=== PATIENT | female | born 1990 | race African-American/Black ===

== ENCOUNTER 2020-11-05 13:25 | Emergency (ER) | payer OTHER, SELFPAY ==
[2020-11-05 13:33] VITALS: BP 132/97; PULSE 114; RESP 20; TEMP 37.3; O2SAT 100
--- NOTE | 2020-11-05 13:46 | ED.GENADULT ---
HPI - General Adult General Chief complaint: Unspecified Stated complaint: headache, wants covid test Time Seen by Provider: 11/05/20 13:29 Source: patient and RN notes reviewed Mode of arrival: ambulatory Limitations: no limitations History of Present Illness HPI narrative: Patient is a 29-year-old female who presents with 2 days duration of upper respiratory symptoms noting congestion rhinorrhea nonproductive cough and inability to smell or taste patient was not vaccinated for COVID-19 presents in no distress has not taken anything for symptoms Related Data Allergies Allergy/AdvReac Type Severity Reaction Status Date / Time No Known Allergies Allergy Verified 11/05/20 13:35 Review of Systems Review of Systems: All systems reviewed & are unremarkable except as noted in HPI and below PMFSH Surgical History Surgical History (Updated 11/05/20 @ 13:48 by Manny Malcolm PA-C) H/O section Social History Social History (Updated 11/05/20 @ 13:48 by Manny Malcolm PA-C) Smoking status: Never smoker Gender identity (if verbalized by the patient): Female Exam Narrative: Exam Narrative: GENERAL: Well-appearing, well-nourished, and in no acute distress. HEAD: Normocephalic, atraumatic. EYES: PERRLA and EOMI. ENT: Nares clear, no rhinorrhea or epistaxis. Mucous membranes moist. CHEST: Clear to auscultation. No respiratory distress. No wheezes rales or rhonchi HEART: Regular rate and rhythm. No murmur heard. EXTREMITIES: Normal range of motion. No edema. SKIN: Warm, dry, no rash. NEURO: No focal deficits. Alert and oriented x3. PSYCH: Normal mood and affect. Course Course Emergency Course: Patient presented with symptoms consistent with possible Covid will be discharged home she is hemodynamically stable afebrile nontoxic-appearing and felt appropriate for outpatient reevaluation advised to follow with primary care and to obtain a pulse oximeter to watch her oxygenation while she waits for her COVID-19 results Vital Signs Vital signs: Vital Signs Temperature 99.1 F 11/05/20 13:33 Pulse Rate 114 H 11/05/20 13:33 Respiratory Rate 20 11/05/20 13:33 Blood Pressure 132/97 H 11/05/20 13:33 Pulse Oximetry 100 11/05/20 13:33 Temperature 99.1 F 11/05/20 13:33 Pulse Rate 114 H 11/05/20 13:33 Respiratory Rate 20 11/05/20 13:33 Blood Pressure 132/97 H 11/05/20 13:33 Pulse Oximetry 100 11/05/20 13:33 Medical Decision Making MDM Narrative Medical decision making narrative: Patient in the room in no distress aware of case findings treatment plan diagnosis hemodynamically stable agreeing to follow-up as instructed Vital Signs Vital Signs: Vital Signs Temperature 99.1 F 11/05/20 13:33 Pulse Rate 114 H 11/05/20 13:33 Respiratory Rate 20 11/05/20 13:33 Blood Pressure 132/97 H 11/05/20 13:33 Pulse Oximetry 100 11/05/20 13:33 Temperature 99.1 F 11/05/20 13:33 Pulse Rate 114 H 11/05/20 13:33 Respiratory Rate 20 11/05/20 13:33 Blood Pressure 132/97 H 11/05/20 13:33 Pulse Oximetry 100 11/05/20 13:33 Discharge Plan Discharge Clinical Impression: Acute upper respiratory infection Patient Disposition: Home, Self-Care Condition: Stable Instructions: Antibiotic Form, Upper Respiratory Infection (DC) Additional Instructions: Follow up with your primary care provider within 1-2 days for reevaluation and COVID-19 results. Go to ER for shortness of breath, difficulty breathing, chest pain, fever/chills, weakness, nauseau/vomitting, etc. or any other concerns. Stay well-hydrated Take any prescribed medications as directed. Follow patient education sheet If you do not have a drug allergy to tylenol or motrin and can tolerate it then take tylenol or motrin as needed for discomfort/pain. Prescriptions: New famotidine [Pepcid] 20 mg tablet 20 mg PO BID Qty: 14 RF: 0 ibuprofen [IBU] 600 mg tablet 600 mg PO QID PRN (Reason:
[2020-11-06 15:56] LABS: SARS-CoV-2 RNA PCR Positive
== END 2020-11-05 14:26 | disposition home or self-care (01) ==
LOC: ANHED 14:21
PROVIDERS: Emergency Medicine Emergency Medical Services; Emergency Provider Emergency Medicine; PCP Internal Medicine Infectious Disease
DX: U07.1 COVID-19 (principal)
CPT/HCPCS: 99283; C9803; U0003; U0005

== ENCOUNTER 2021-02-26 11:43 | Outpatient (CLI) | payer OTHER, SELFPAY ==
--- NOTE | ~2021-02-26 | MM_ITS ---
EXAMINATION: MM diagnostic manish BI w moshe HISTORY: Right subareolar breast lump one month ago, not currently palpated by patient TECHNIQUE: ML, MLO and craniocaudal 3-D tomosynthesis images of both breasts were performed and synth etic 2-D images were generated. CAD analysis was submitted and interpreted. COMPARISON: None BREAST PARENCHYMAL COMPOSITION: There are scattered areas of fibroglandular density. FINDINGS: No suspicious mass or architectural distortion, malignant calcification, skin thickening or retraction is detected. IMPRESSION: 1. No mammographic evidence of malignancy 2. Targeted subareolar ultrasound examination of the right breast at area of clinical complaint is re commended BI-RADS Category 0: Incomplete: Needs additional imaging evaluation. Reviewed, dictated and finalized at location A. IMPRESSION: 1. No mammographic evidence of malignancy 2. Targeted subareolar ultrasound examination of the right breast at area of cl inical complaint is recommended BI-RADS Category 0: Incomplete: Needs additional imaging evaluation.
== END 2021-02-26 11:44 | disposition home or self-care (01) ==
LOC: ANHIMG 11:45
PROVIDERS: PCP Obstetrics & Gynecology; Visit Provider Obstetrics & Gynecology
DX: Z12.31 Encounter for screening mammogram for malignant neoplasm of breast (principal); R92.8 Other abnormal and inconclusive findings on diagnostic imaging of breast
CPT/HCPCS: 77062; 77066; G0279

== ENCOUNTER 2021-04-10 18:03 | Emergency (ER) | payer OTHER, SELFPAY ==
[2021-04-10 18:23] VITALS: BP 144/98; PULSE 93; RESP 17; TEMP 36.2; O2SAT 100
--- NOTE | 2021-04-10 20:54 | ED.GENADULT ---
HPI - General Adult General Chief complaint: Unspecified Stated complaint: breast pain, breast d/c Time Seen by Provider: 04/10/21 20:31 Source: patient Mode of arrival: ambulatory Limitations: no limitations History of Present Illness HPI narrative: 30-year-old with no major medical problems here with a complaint of left breast pain associated with drainage. She stated the pain started yesterday and noticed some drainage coming out from her piercing. She also complains of bilateral ear pain. No history of fever or chills. Denies any nausea or vomiting. Onset (ago): day(s) (1) Location: chest (Left breast) Severity: mild Pain Consistency: constant Relieving factors: none Exacerbating factors: none Related Data Allergies Allergy/AdvReac Type Severity Reaction Status Date / Time No Known Allergies Allergy Verified 04/10/21 20:19 Review of Systems Review of Systems: All systems reviewed & are unremarkable except as noted in HPI and below Constitutional: Constitutional: Reports no additional constitutional complaints Eyes: Eyes: Reports no additional eye complaints ENT: Reports system reviewed and no additional complaints, except as documented Cardiovascular: Cardiovascular: Reports no additional cardiovascular complaints Respiratory: Respiratory: Reports no additional respiratory complaints Gastrointestinal: Gastrointestinal: Reports no additional gastrointestinal complaints Integumentary/Breasts: Skin/Breast: Reports as per HPI Neurologic: Reports system reviewed and no additional complaints, except as documented PMFSH Surgical History Surgical History H/O section Social History Social History Smoking status: Never smoker Gender identity (if verbalized by the patient): Female Exam Narrative: GENERAL: Well-appearing, well-nourished, and in no acute distress. HEAD: Normocephalic, atraumatic. EYES: PERRLA and EOMI.. NECK: Supple. CHEST: Clear to auscultation. No respiratory distress. HEART: Regular rate and rhythm. No murmur heard. Normal peripheral pulses. Breast left breast has a nipple piercing, drainage from the piercing. EXTREMITIES: Normal range of motion. No edema. SKIN: Warm, dry, no rash. NEURO: No focal deficits. Alert and oriented x3. PSYCH: Normal mood and affect. Course Course Emergency Course: Inform patient to demo her piercing take antibiotic as prescribed. Vital Signs Vital signs: Vital Signs Temperature 36.2 C L 04/10/21 18:23 Pulse Rate 93 04/10/21 18:23 Respiratory Rate 17 04/10/21 18:23 Blood Pressure 144/98 H 04/10/21 18:23 Pulse Oximetry 100 04/10/21 18:23 Temperature 36.2 C L 04/10/21 18:23 Pulse Rate 93 04/10/21 18:23 Respiratory Rate 17 04/10/21 18:23 Blood Pressure 144/98 H 04/10/21 18:23 Pulse Oximetry 100 04/10/21 18:23 Medical Decision Making Vital Signs Vital Signs: Vital Signs Temperature 36.2 C L 04/10/21 18:23 Pulse Rate 93 04/10/21 18:23 Respiratory Rate 17 04/10/21 18:23 Blood Pressure 144/98 H 04/10/21 18:23 Pulse Oximetry 100 04/10/21 18:23 Temperature 36.2 C L 04/10/21 18:23 Pulse Rate 93 04/10/21 18:23 Respiratory Rate 17 04/10/21 18:23 Blood Pressure 144/98 H 04/10/21 18:23 Pulse Oximetry 100 04/10/21 18:23 Discharge Plan Discharge Clinical Impression: Infected pierced nipple Patient Disposition: Home, Self-Care Condition: Stable Instructions: Antibiotic Form, Cellulitis (ED) Additional Instructions: take antibiotic as prescribed , remove your piercing Prescriptions: New amoxicillin-pot clavulanate [Augmentin] 875-125 mg tablet 1 tablet PO Q12H Qty: 20 RF: 0 ibuprofen 600 mg tablet 600 mg PO TID PRN (Reason: pain and fever) Qty: 30 RF: 0 No Action famotidine [Pepcid] 20 mg tablet 20 mg PO BID Qty: 14 RF: 0 ibupro
[2021-04-10 21:22] VITALS: BP 127/94; PULSE 86; RESP 18; TEMP 36.8; O2SAT 100
== END 2021-04-10 21:26 | disposition home or self-care (01) ==
PROVIDERS: Emergency Provider Family Medicine; PCP Obstetrics & Gynecology
DX: S21.042A Puncture wound with foreign body of left breast, initial encounter (principal); L08.9 Local infection of the skin and subcutaneous tissue, unspecified; W45.8XXA Other foreign body or object entering through skin, initial encounter; W26.8XXA Contact with other sharp object(s), not elsewhere classified, initial encounter
CPT/HCPCS: 99283

== ENCOUNTER → 2021-05-07 08:00 | Outpatient (CLI) | payer OTHER, SELFPAY ==
[2021-05-08 13:55] LABS: SARS-CoV-2 RNA PCR Positive
== END ==
PROVIDERS: PCP Obstetrics & Gynecology
DX: U07.1 COVID-19 (principal)
CPT/HCPCS: C9803; U0003; U0005

== ENCOUNTER 2021-05-08 13:04 | Outpatient (CLI) | payer OTHER, SELFPAY ==
--- NOTE | ~2021-05-08 | US_ITS ---
EXAMINATION: US breast RT limited HISTORY: Patient with history of palpable lump in the subareolar aspect of the right breast without m ammographic correlate TECHNIQUE: Limited subareolar right breast ultrasound was performed. FINDINGS: There is no evidence of focal abnormal cystic or solid mass in the vicinity of the reported subareolar right breast lump IMPRESSION: No specific sonographic correlate is identified for the reported palpable abnormality of concern. Fur ther evaluation at this time should be based on clinical assessment. Continued follow-up physical exa mination is recommended. BI-RADS Category 1: Negative Reviewed, dictated and finalized at location A. SETTER OVERLOCK IMPRESSION: No specific sonographic correlate is identified for the reported palpable abnor mality of concern. Further evaluation at this time should be based on clinical assessment. Continued follow-up physical examination is recommended. BI-RADS Category 1: Negative
== END 2021-05-08 13:05 | disposition home or self-care (01) ==
LOC: ANHIMG 13:10
PROVIDERS: Visit Provider Obstetrics & Gynecology
DX: R92.2 Inconclusive mammogram (principal)
CPT/HCPCS: 76642

== ENCOUNTER 2021-07-31 12:36 | Outpatient (CLI) | payer OTHER, SELFPAY ==
--- NOTE | ~2021-07-31 | US_ITS ---
EXAMINATION: US thyroid DATE: 07/31/2021 13:02 INDICATION: Nontoxic goiter, unspecified. TECHNIQUE: Multiple ultrasound images of the thyroid were obtained. COMPARISON: None. FINDINGS: The right thyroid lobe measures 5.4 x 1.6 x 1.2 cm. The left thyroid lobe measures 4.9 x 1.7 x 1.2 c m. There is normal echotexture and echogenicity throughout the thyroid gland. No discrete nodules id entified. Normal vascular flow is present. IMPRESSION: 1. Normal thyroid. Reviewed, dictated and finalized at location A. IMPRESSION: 1. Normal thyroid.
== END 2021-07-31 12:37 | disposition home or self-care (01) ==
LOC: ANHIMG 12:39
PROVIDERS: PCP Emergency Medicine; Visit Provider Emergency Medicine
DX: E04.9 Nontoxic goiter, unspecified (principal)
CPT/HCPCS: 76536

== ENCOUNTER 2021-08-29 12:46 | Outpatient (CLI) | payer OTHER, SELFPAY ==
--- NOTE | ~2021-08-29 | US_ITS ---
EXAMINATION: US pelvic complete DATE: 08/29/2021 13:40 INDICATION: Mass at the section scar. TECHNIQUE: Multiple transabdominal sonographic images of the pelvis were obtained. COMPARISON: None. FINDINGS: The uterus measures 8.3 x 5.1 x 5.7 cm. There is no free fluid in the pelvis. The endometrial complex measures 10 mm in thickness. The right ovary measures 2.9 x 1.6 x 1.5 cm. The left ovary measures 2. 4 x 2.1 x 1.6 cm. There is normal vascular flow in the ovaries. In the anterior abdominal wall at rig ht side of the section scar, there is a 2.8 x 2.5 x 3.3 cm hypoechoic mass. IMPRESSION: 1. 3.3 cm mass in the anterior abdominal wall at the right side of the section scar. The dif ferential diagnosis includes endometriosis, desmoid, and less likely malignancy. Ultrasound-guided co re needle biopsy is recommended. Reviewed, dictated and finalized at location A. IMPRESSION: 1. 3.3 cm mass in the anterior abdominal wall at the right side of the section scar. The differential diagnosis includes endometriosis, desmoid, and less likely malignancy. Ultrasound-guided core needle biopsy is recommended.
== END 2021-08-29 12:47 | disposition home or self-care (01) ==
LOC: ANHIMG 12:46
PROVIDERS: PCP Emergency Medicine; Visit Provider Emergency Medicine
DX: R19.00 Intra-abdominal and pelvic swelling, mass and lump, unspecified site (principal)
CPT/HCPCS: 76856

== ENCOUNTER 2021-11-01 12:19 | Outpatient (CLI) | payer OTHER, SELFPAY ==
[2021-11-01 14:49] LABS: Alanine Aminotransferase 6 U/L (6-35); Albumin Level 4.1 g/dL (3.5-5.1); Alkaline Phosphatase 74 U/L (38-126); Anion Gap 6 mmol/L (8-16); Aspartate Amino Transferase 29 U/L (14-36); Bilirubin,Total 0.2 mg/dL (0.2-1.3); Blood Urea Nitrogen 13 mg/dL (7-17); Calcium 8.8 mg/dL (8.4-10.2); Carbon Dioxide 28 mmol/L (22-30); Chloride 103 mmol/L (98-107); Estimated Glomerular Filt Rate > 60; Glucose 77 mg/dL (65-110); Potassium 4.1 mmol/L (3.4-5.0); Sodium 137 mmol/L (137-145)
[2021-11-04 14:16] LABS: Prolactin 6.9 ng/mL (***)
[2021-11-05 16:04] LABS: Vitamin D 1,25 (OH)2 Total 32 pg/mL (18-72); Vitamin D2 1,25 (OH)2 <8 pg/mL; Vitamin D3 1,25 (OH)2 32 pg/mL
== END 2021-11-01 12:20 | disposition home or self-care (01) ==
LOC: ANHWCLAB 12:24
PROVIDERS: PCP Emergency Medicine; Visit Provider Obstetrics & Gynecology
DX: E55.9 Vitamin D deficiency, unspecified (principal); N64.3 Galactorrhea not associated with childbirth; Z13.6 Encounter for screening for cardiovascular disorders
CPT/HCPCS: 36415; 80053; 82652; 84146

== ENCOUNTER 2021-12-10 12:19 | Outpatient (CLI) | payer OTHER, SELFPAY ==
--- NOTE | ~2021-12-10 | US_ITS ---
EXAMINATION: US biopsy st pelvis DATE: 12/10/2021 13:24 INDICATION: Intra-abdominal and pelvic swelling, mass, lump. TECHNIQUE: The procedure including the risks, benefits, and alternatives was discussed with the patie nt. Risks discussed included bleeding and infection. The patient understood the risks and agreed to p roceed. The skin overlying the right pelvis was prepped and draped in usual sterile fashion. Anesthe tic was administered with 1% lidocaine subcutaneously. An 18 gauge core biopsy needle was then used to obtain 3 core biopsy specimens under continuous sonographic guidance. The entry site was cleaned a nd dressed. There were no immediate complications. FINDINGS: Ultrasound images demonstrate the needle in a 4.0 x 3.1 x 2.9 cm hypoechoic subcutaneous ma ss in right pelvis. IMPRESSION: 1. Ultrasound-guided core needle biopsy of a subcutaneous mass in right pelvis at the right side of t he section scar. Reviewed, dictated and finalized at location A. IMPRESSION: 1. Ultrasound-guided core needle biopsy of a subcutaneous mass in right pelvis at the right side of the section scar.
== END 2021-12-10 12:20 | disposition home or self-care (01) ==
PROVIDERS: PCP Emergency Medicine; Visit Provider Obstetrics & Gynecology
DX: R19.00 Intra-abdominal and pelvic swelling, mass and lump, unspecified site (principal); N80.9 Endometriosis, unspecified
CPT/HCPCS: 20206; 76942; 88305

== ENCOUNTER 2022-03-21 16:41 | Outpatient (CLI) | payer OTHER, SELFPAY ==
--- NOTE | ~2022-03-21 | XR_ITS ---
EXAMINATION:XR_[id number]_CR DATE: 03/21/2022 17:03 INDICATION: Neck pain TECHNIQUE: AP, lateral, and odontoid views of the cervical spine are provided. COMPARISON: None FINDINGS: There is straightening of the cervical spine which can be positional or due to muscular spa sm. Alignment is normal. The odontoid is intact. No fracture is identified. Vertebral body heights an d disk spaces are normal. Prevertebral soft tissues are normal. IMPRESSION: 1. No acute osseous abnormality. Reviewed, dictated and finalized at location F. INE PECAN GATHERER
== END 2022-03-21 16:42 | disposition home or self-care (01) ==
LOC: ANHIMG 16:44
PROVIDERS: PCP Emergency Medicine; Visit Provider Emergency Medicine
DX: M54.2 Cervicalgia (principal)
CPT/HCPCS: 72040

== ENCOUNTER 2022-03-25 17:03 | Outpatient (CLI) | payer OTHER, SELFPAY ==
[2022-03-25 20:08] LABS: Influenza A QL RT-PCR Negative (Negative); Influenza B QL RT-PCR Negative (Negative)
== END 2022-03-25 17:04 | disposition home or self-care (01) ==
LOC: ANHLAB 17:05
PROVIDERS: PCP Emergency Medicine; Visit Provider Emergency Medicine
DX: R68.89 Other general symptoms and signs (principal); Z20.822 Contact with and (suspected) exposure to COVID-19
CPT/HCPCS: 87502

== ENCOUNTER 2022-07-05 15:46 | Outpatient (CLI) | payer OTHER, SELFPAY ==
--- NOTE | ~2022-07-05 | XR_ITS ---
EXAMINATION: XR chest 2V DATE: 07/05/2022 16:06 INDICATION: Left-sided chest pain TECHNIQUE: PA and lateral views of the chest are obtained. COMPARISON: 09/27/2020 FINDINGS: The lungs are free of acute opacities. No pleural effusion or pneumothorax. The cardiomedia stinal silhouette is normal. The visualized bones and soft tissues are unremarkable. IMPRESSION: 1. No acute cardiopulmonary abnormality. Reviewed, dictated and finalized at location F. OROLOGY FACULTY MEMBER
--- NOTE | 2022-07-05 16:08 | ECG_ITS ---
Measurements Intervals [place] Rate: 100 P: 53 MO: 159 QRS: 29 QRSD: 68 T: 40 QT: 328 QTc: 424 Interpretive Statements SINUS TACHYCARDIA BORDERLINE ECG NO PREVIOUS ECG AVAILABLE FOR COMPARISON Electronically Signed On 07-05-2022 17:01:12 SR VICE PRESIDENT by Angel Jenkins D.O.
== END 2022-07-05 15:47 | disposition home or self-care (01) ==
LOC: ANHIMG 15:50
PROVIDERS: PCP Emergency Medicine; Visit Provider Emergency Medicine
DX: R00.0 Tachycardia, unspecified (principal); Z13.6 Encounter for screening for cardiovascular disorders; R07.9 Chest pain, unspecified
CPT/HCPCS: 71046; 93005

== ENCOUNTER 2022-11-12 16:35 | Emergency (ER) | payer SELFPAY ==
[2022-11-12 16:48] VITALS: BP 154/99; PULSE 87; RESP 16; TEMP 36.4; O2SAT 100
--- NOTE | 2022-11-12 17:18 | ED.FEMALEGU ---
HPI - Female Genitourinary General Chief complaint: BUSINESS BANKER <Shira Neri PA-C - Last Filed: 11/13/22 00:11> Stated complaint: vaginal discharge <RASHAWN Panda Last Filed: 11/13/22 00:11> Time Seen by Provider: 11/12/22 16:55 <RASHAWN Panda Last Filed: 11/13/22 00:11> Source: patient <RASHAWN Panda Last Filed: 11/13/22 00:11> Mode of arrival: ambulatory <RASHAWN Panda Last Filed: 11/13/22 00:11> Limitations: no limitations <RASHAWN Panda Last Filed: 11/13/22 00:11> History of Present Illness HPI Narrative: Patient is a 31-year-old female who presents to the ED with report of abnormal vaginal discharge and odor. Patient reports having a foul fishy odor to her discharge, which she describes as a thin brown discharge for the last 3 weeks. She has been talking with her COVER MAKER and has tried several different [id number] therapies without relief. Patient otherwise asymptomatic. Denies lower abdominal pain, nausea, vomiting, fevers, dysuria, hematuria, abnormal vaginal bleeding. Patient is currently sexually active, but does not believe she has ever been exposed to STDs. <RASHAWN Panda Last Filed: 11/13/22 00:11> Related Data Allergies/Adverse reactions: Allergies Allergy/AdvReac Type Severity Reaction Status Date / Time No Known Allergies Allergy Verified 11/18/22 16:17 <RASHAWN Panda Last Filed: 11/13/22 00:11> Review of Systems Review of Systems: CONSTITUTIONAL: Denies fever, chills, or sweats. CARDIOVASCULAR: Denies chest pain. RESPIRATORY: Denies dyspnea. GASTROINTESTINAL: Denies abdominal pain, nausea, vomiting, or diarrhea. GENITOURINARY: See HPI. SKIN: Denies rash or itching. MUSCULOSKELETAL: Denies back pain, joint pain, or myalgia. <Shira Neri PA-C - Last Filed: 11/13/22 00:11> All systems reviewed & are unremarkable except as noted in HPI and below <Shira Neri PA-C - Last Filed: 11/13/22 00:11> [facility] Past Medical History Medical History: Medical History Prediabetes Thyroid enlargement <Shira Neri PA-C - Last Filed: 11/13/22 00:11> Surgical History Surgical History: Surgical History H/O section (~02/04/10) H/O oral surgery <RASHAWN Panda Last Filed: 11/13/22 00:11> Family History Family History: Family History Father No problems noted. Mother No problems noted. Other Alcoholism Heart disease Hypertension <RASHAWN Panda Last Filed: 11/13/22 00:11> Social History Social History: Social History (System 11/18/22 @ 16:17 by Desmond Roy) Smoking status: Never smoker Alcohol intake: never Substance use: never Lack of Transportation: No Lack of Food: Never True Current Housing: I Have Housing Concerned About Future Housing: No Difficulty Paying Gas/Electric Bills: No Difficulty Paying for Meds: No Currently Unemployed: No Education: Associate Degree Difficulty w/ Childcare or Family Care: No Gender identity (if verbalized by the patient): Female <RASHAWN Panda Last Filed: 11/13/22 00:11> Exam Narrative: GENERAL: Well appearing, obese with BMI of 33.1, non-toxic, in no acute distress. HEAD: Normocephalic, atraumatic. NECK: Supple. No adenopathy, no masses. RESPIRATORY: Airway patent, respirations nonlabored. Clear to auscultation bilaterally, no rales, rhonchi, wheezing. CARDIOVASCULAR: Regular rate and rhythm without murmurs, rubs, or gallops. Peripheral pulses 2+ and equal bilaterally. ABDOMINAL: Soft, no significant tenderness throughout lower abdomen, nondistended, no hepatosplenomegaly. Normoactive BS. PELVIC: Nor
[2022-11-12 18:19] LABS: Appearance Urine Cloudy (Clear); Bacteria Urine 3+ /hpf; Bilirubin Urine Negative (Negative); Blood Urine 2+ (Negative); Color Urine Yellow (Yellow); Glucose Urine UA Negative (Negative); Ketones Urine Negative (Negative); Leukocyte Esterase Ur 1+ LEU/UL (Negative); Nitrate Urine Negative (Negative); Non Pathogenic Casts 0-2; Protein Urine 3+ mg/dL (Negative); Specific Grav Ur 1.023 (1.001-1.035); Squamous Epithelial Cell Urine Moderate /hpf (Few); WBC Urine 51-100 /hpf
[2022-11-12 18:26] LABS: Add Urine Microscopic? YES
[2022-11-12] MEDS: metroNIDAZOLE 250 MG TABLET 500 MG PO (18:50)
[2022-11-12] MEDS: CEPHALEXIN 500 MG CAPSULE PO (18:50)
== END 2022-11-12 19:41 | disposition home or self-care (01) ==
PROVIDERS: Emergency Provider Physician Assistant; PCP Emergency Medicine
DX: N39.0 Urinary tract infection, site not specified (principal); N76.0 Acute vaginitis
CPT/HCPCS: 81001; 81025; 87070; 87086; 87491; 87591; 87808; 99284; A9270

== ENCOUNTER 2023-06-19 07:55 | Emergency (ER) | payer OTHER, SELFPAY ==
--- NOTE | ~2023-06-19 | CT_ITS ---
EXAMINATION: CT abdomen pelvis w con DATE: 06/19/2023 10:16 INDICATION: Right lower quadrant abdominal pain. TECHNIQUE: Computed tomography (CT) of the abdomen and pelvis was performed with 100 mL Omnipaque 350 intravenous contrast. Automated exposure control and iterative reconstruction technique were employe d. The dose-length product was 689.72 mGy-cm. COMPARISON: Ultrasound 12/10/2021, 08/29/2021 FINDINGS: The visualized portions of the lung bases demonstrate minimal atelectasis. No pleural effus ion. The heart size is normal. No pericardial effusion. There is a left posterior diaphragmatic herni a containing fat and a small portion of the stomach. The liver is normal. The gallbladder is distende d. The spleen, pancreas, adrenal glands, and kidneys are normal. There are no dilated loops of bowel. The appendix is normal. There is a subcutaneous mass in right lower quadrant measuring 6.0 x 5.0 x 4 .8 cm with adjacent fat stranding. There are no pathologically enlarged lymph nodes. There is no free intraperitoneal fluid. There is mild thoracic spondylosis. IMPRESSION: 1. 6.0 cm subcutaneous mass in right lower quadrant, increased from 3.3 cm on 08/29/2021. Biopsy on 12/10/2021 demonstrated endometriosis in the section scar. 2. Gallbladder distention, which may be secondary to fasting. Correlate with physical exam to exclude acute cholecystitis. Reviewed, dictated and finalized at location A. OGRAPHIC MACHINE OPERATOR IMPRESSION: 1. 6.0 cm subcutaneous mass in right lower quadrant, increased from 3.3 cm on . Biopsy on 12/10/2021 demonstrated endometriosis in the section scar. 2. Gallbladder distention, which may be secondary to fasting. Correlate with ph ysical exam to exclude acute cholecystitis.
[2023-06-19 08:08] VITALS: BP 145/107; PULSE 96; RESP 14; TEMP 36.4; O2SAT 100
[2023-06-19 08:34] LABS: Basophils Percent Auto 0.3 % (0.2-1.2); Eosinophils Absolute Auto 0.1 K/mm3 (0-0.3); Eosinophils Percent Auto 1.3 % (0-4.4); Hematocrit 35.8 % (37.0-47.0); Hemoglobin 11.2 g/dL (12.0-15.0); Immature Granulocyte Absolute 0.03 K/mm3 (0.00-0.031); Immature Granulocyte Percent A 0.4 % (0-0.5); Lymphocytes Absolute Auto 1.86 K/mm3 (0.9-3.2); Mean Corpuscular HGB Conc 31.3 g/dl (32-36); Mean Corpuscular Hemoglobin 28.2 pg (26-34); Mean Corpuscular Volume 90.2 fl (80-100); Mean Platelet Volume 10.3 fl (7.4-10.4); Monocytes Absolute Auto 0.4 K/mm3 (0.1-0.6); Neutrophils Absolute Auto 5.4 K/mm3 (1.3-6.7); Platelet Count Result 329 k/mm3 (150-375); Red Blood Count 3.97 M/mm3 (4.2-5.4); Red Cell Distribution Width 14.3 % (11.5-14.5); White Blood Count 7.8 K/mm3 (4.5-10.0)
[2023-06-19 08:42] VITALS: BP 140/97; PULSE 82; PULSE 84; RESP 17; O2SAT 100
[2023-06-19 08:51] LABS: Alanine Aminotransferase 6 U/L (6-35); Albumin Level 3.9 g/dL (3.5-5.1); Alkaline Phosphatase 79 U/L (38-126); Anion Gap 5 mmol/L (8-16); Aspartate Amino Transferase 22 U/L (14-36); Bilirubin,Total 0.5 mg/dL (0.2-1.3); Blood Urea Nitrogen 8 mg/dL (7-17); Calcium 9.1 mg/dL (8.4-10.2); Carbon Dioxide 25 mmol/L (22-30); Chloride 108 mmol/L (98-107); Estimated CRCL calculation 86 ml/min; Estimated Glomerular Filt Rate > 60; Glucose 95 mg/dL (65-110); Lipase 36 U/L (23-300); Potassium 4.4 mmol/L (3.4-5.0); Sodium 138 mmol/L (137-145)
[2023-06-19 08:56] LABS: Bacteria Urine None Seen /hpf; Non Pathogenic Casts 0-2; RBC Urine >100 /hpf (0-2); Squamous Epithelial Cell Urine Occasional /hpf (Few); WBC Urine 21-50 /hpf
--- NOTE | 2023-06-19 08:57 | ED.ABDPAIN ---
HPI - Abdominal Pain General Chief Complaint: Abdominal Pain <Jonathan James APRN - Last Filed: 06/19/23 11:32> Stated Complaint: Pelvic pain <Jonathan James APRN - Last Filed: 06/19/23 11:32> Time Seen by Provider: 06/19/23 08:55 <Jonathan James APRN - Last Filed: 06/19/23 11:32> Source: patient <Jonathan James APRN - Last Filed: 06/19/23 11:32> Mode of arrival: ambulatory <Jonathan James APRN - Last Filed: 06/19/23 11:32> Limitations: no limitations <Jonathan James APRN - Last Filed: 06/19/23 11:32> History of Present Illness HPI narrative: Sara is a 32-year-old female patient presenting to the ER today with complaints of right lower abdomen wall pain that began around 2:00 a.m. this morning. Patient reports that she has taken to Tylenol as an apply heating pad to help alleviate pain. She denies any fever. She is currently on her menses-started on June 17 2023. Rates pain 7/10. History of endometriosis. Denies any nausea, vomiting, diarrhea, or urinary symptoms. Last bowel movement was yesterday and normal for the patient. <Jonathan James APRN - Last Filed: 06/19/23 11:32> Related Data Allergies/Adverse Reactions: Allergies Allergy/AdvReac Type Severity Reaction Status Date / Time No Known Allergies Allergy Verified 06/19/23 08:13 <Jonathan James APRN - Last Filed: 06/19/23 11:32> Review of Systems Review of Systems: Pertinent positives per HPI. Patient denies any fever, chills, rash, headache, visual changes, dizziness, cough, runny nose, sore throat, shortness of breath, chest pain, palpitations, nausea, vomiting, diarrhea, constipation,or any urinary issues. <Jonathan James APRN - Last Filed: 06/19/23 11:32> [facility] Past Medical History Medical History: Medical History Prediabetes Thyroid enlargement <Jonathan James APRN - Last Filed: 06/19/23 11:32> Surgical History Surgical History: Surgical History H/O section (~02/04/10) H/O oral surgery <Jonathan James APRN - Last Filed: 06/19/23 11:32> Family History Family History: Family History Father No problems noted. Mother No problems noted. Other Alcoholism Heart disease Hypertension <Jonathan James APRN - Last Filed: 06/19/23 11:32> Social History Social History: Social History Smoking status: Never smoker Alcohol intake: never Substance use: never Lack of Transportation: No Lack of Food: Never True Current Housing: I Have Housing Concerned About Future Housing: No Difficulty Paying Gas/Electric Bills: No Difficulty Paying for Meds: No Currently Unemployed: No Education: Associate Degree Difficulty w/ Childcare or Family Care: No Gender identity (if verbalized by the patient): Female <Jonathan James APRN - Last Filed: 06/19/23 11:32> Comments At the time of my signature, I reviewed and agree with the nursing past medical, surgical, social, and family history. There is no relevant family history pertinent to the patient complaint. <Jonathan James APRN - Last Filed: 06/19/23 11:32> Exam Narrative: General: Well-developed, well nourished, in no apparent distress. Head: Normocephalic, atraumatic. Cardio: Regular rate and rhythm, s1 and s2 normal, no murmur appreciated. Resp: Clear to auscultation bilaterally, no rhonchi, rales, wheezing or rubs. Abdomen: Soft, pliable, bowel sounds present in all quadrants, tender to palpation over the right lower quadrant, erythema, redness, and swelling noted to the abdominal wall of the right lower quadrant, no organomegly, no CVAT tenderness. <Jonathan James,
[2023-06-19 08:59] LABS: Appearance Urine Turbid (Clear); Bilirubin Urine 1+ (Negative); Blood Urine 3+ (Negative); Color Urine Red (Yellow); Glucose Urine UA Negative (Negative); Ketones Urine Negative (Negative); Leukocyte Esterase Ur 1+ LEU/UL (Negative); Nitrate Urine Negative (Negative); Protein Urine 2+ mg/dL (Negative); Specific Grav Ur 1.018 (1.001-1.035)
[2023-06-19 09:01] LABS: Add Urine Microscopic? YES
[2023-06-19 10:51] VITALS: BP 142/99; PULSE 95; RESP 19; O2SAT 100
[2023-06-19 11:22] LABS: Lactic Acid Reflex 1.3 mmol/L (0.7-2.0)
== END 2023-06-19 11:11 | disposition home or self-care (01) ==
PROVIDERS: Student in an Organized Health Care Education/Training Program; Emergency Provider Nurse Practitioner Family; PCP Emergency Medicine
DX: L03.311 Cellulitis of abdominal wall (principal); R19.03 Right lower quadrant abdominal swelling, mass and lump; N80.9 Endometriosis, unspecified; R73.03 Prediabetes; E04.9 Nontoxic goiter, unspecified
CPT/HCPCS: 36415; 74177; 80053; 81001; 81025; 83605; 83690; 85025; 87040; 87086; 99284; Q9967

== ENCOUNTER 2023-07-10 00:31 | Day surgery (SDC) | payer OTHER, SELFPAY ==
--- NOTE | 2023-07-01 13:40 | PC.NURSE ---
Report to the Outpatient Waiting Room, entrance under the green pavilion located off [facility], at time __1130__ on date 07/10/23 . Planned Procedure Time: _1330 . Time changes happen often and if your time is changed the preop area will call you the afternoon before. - You and your visitor will be asked to self-screen and do not enter if you have any COVID symptoms. - A mask is optional within the hospital at this time. Patients may have clear liquids (water, carbonated beverages, clear teas, apple juice) until 3 hours prior to surgery with a maximum of 20 ounces. Take the following medications with a SIP of water the morning of surgery: ____NONE DO NOT STOP ANY OF YOUR OTHER PRESCRIPTION MEDICATIONS PRIOR TO SURGERY ?EXCEPT THE FOLLOWING Medications to discontinue per physician NONE Date to take last dose___NONE Please no make-up, nail [place] islander, hairspray, perfume, deodorant, or body powder the day of surgery. No jewelry (including any body piercings) or valuables the day of surgery, leave them at home. Please take a shower or bath the night before, or the morning of, surgery with an antibacterial soap. Wear comfortable, loose fitting clothing. - Jewelry must be removed prior to entering the operating room. Rings and piercings that are not removed may be cut off. - The hospital will not accept responsibility for valuables. - Please leave all valuables, including medications, at home the day of surgery. If you are going home after surgery, a licensed driver medic must drive you home. - NO public transportation without another adult if you receive anesthesia. - We recommend that an adult stay with you for 24 hours following discharge. - We also recommend that you do not drive, make important decision, drink alcoholic beverages, or take any drugs that were not prescribed by your health care provider for at least 24 hours after your discharge time. Follow any additional instructions given to you from your surgeon. If you or anyone in your household have experienced Covid symptoms in the past week, please notify your surgeon or the nurse liaison at the phone number below for possible testing. Telephone instructions given to __BARRIE and asked if any additional questions and then verbalized understanding. Patient advised to call surgeon office or pre surgery nurse liaison [phone] if any additional questions.
--- NOTE | 2023-07-09 12:04 | WPDANESEPPF ---
Anes - Initial Pre Proc Eval Procedure: Operation Date: 07/10/23 13:30 Proposed Procedures p Excision Endometrioma Right Lower Quadrant - John Fowler MD Date/Time: 07/09/23 12:04 Surgeon: John Fowler MD Pre Op Diagnosis: Endometrioma Rt Lower Quadrant Patient Data Age: 32 Gender: F Height: 1.57 m Weight: 87.5 kg Allergies Allergy/AdvReac Type Severity Reaction Status Date / Time No Known Allergies Allergy Verified 06/30/23 14:48 Home Medications Medication Instructions Recorded Confirmed Type No Home Medications 06/26/23 07/02/23 History Results Review: All pre-operative results and documents have been reviewed as part of the pre-operative evaluation. [facility] Past Medical History Medical History Prediabetes Thyroid enlargement Surgical History Surgical History H/O section (~02/04/10) H/O oral surgery Family History Family History Father No problems noted. Mother No problems noted. Other Alcoholism Heart disease Hypertension Social History Social History Smoking status: Never smoker Alcohol intake: current Substance use: never Substance use type: does not use Lack of Transportation: No Lack of Food: Never True Current Housing: I Have Housing Concerned About Future Housing: No Difficulty Paying Gas/Electric Bills: No Difficulty Paying for Meds: No Currently Unemployed: No Education: Associate Degree Difficulty w/ Childcare or Family Care: No Living arrangements: alone Gender identity (if verbalized by the patient): Female Spiritual care concerns: No Anes - Eval Final PreProcedure Day of Procedure 07/09/23 12:04 Patient weight: obese Heart: regular rate and rhythm Lungs: clear to auscultation Airway: Mallampati scale class II Neurological: alert and oriented Last oral intake: >/= 8 hours ASA classification: II Emergent: no Anesthetic plan: proceed Anesthesia type and monitoring: general ETT and standard monitoring Results Review: All pre-operative results and documents have been reviewed as part of the pre-operative evaluation. Informed Consent: The patient's anesthetic plan and its attendant risks and benefits were discussed with the patient/family/POA. Questions were solicited and answers provided to the satisfaction of the patient/family/POA.
[2023-07-10] VITALS (9 sets, daily range): BP systolic 104–144; BP diastolic 67–88; PULSE 70–99; RESP 15–24; TEMP 36.7–36.8; O2SAT 97–100
[2023-07-10] MEDS: LACTATED RINGERS 1,000 ML 30 ML IV CONT (11:30)
--- NOTE | 2023-07-10 11:39 | WPDHPUPDATE1 ---
History and Physical Update Update Date/Time: 07/10/23 11:39 History and Physical has been reviewed, including an updated exam of the patient. There are NO changes in the patient's condition. Risks, benefits, and alternatives have been discussed and questions answered. Patient agrees to proceed with procedure.
--- NOTE | 2023-07-10 11:55 | WPDANESEPPF ---
Anes - Initial Pre Proc Eval Procedure: Operation Date: 07/10/23 13:30 Proposed Procedures p Excision Endometrioma Right Lower Quadrant - John Fowler MD Date/Time: 07/10/23 11:55 Surgeon: John Fowler MD Pre Op Diagnosis: Endometrioma Rt Lower Quadrant Patient Data Age: 32 Gender: F Height: 1.57 m Weight: 87.5 kg Allergies Allergy/AdvReac Type Severity Reaction Status Date / Time No Known Allergies Allergy Verified 06/30/23 14:48 Home Medications Medication Instructions Recorded Confirmed Type No Home Medications 06/26/23 07/02/23 History Patient hx anesthesia problems: post op nausea/vomiting Family hx anesthesia problems: none Results Review: All pre-operative results and documents have been reviewed as part of the pre-operative evaluation. [facility] Past Medical History Medical History Prediabetes Thyroid enlargement Surgical History Surgical History H/O section (~02/04/10) H/O oral surgery Family History Family History Father No problems noted. Mother No problems noted. Other Alcoholism Heart disease Hypertension Social History Social History Smoking status: Never smoker Alcohol intake: current Substance use: never Substance use type: does not use Lack of Transportation: No Lack of Food: Never True Current Housing: I Have Housing Concerned About Future Housing: No Difficulty Paying Gas/Electric Bills: No Difficulty Paying for Meds: No Currently Unemployed: No Education: Associate Degree Difficulty w/ Childcare or Family Care: No Living arrangements: alone Gender identity (if verbalized by the patient): Female Spiritual care concerns: No Anes - Eval Final PreProcedure Day of Procedure 07/10/23 11:55 Patient weight: normal Heart: regular rate and rhythm Lungs: clear to auscultation Airway: Mallampati scale class II Neurological: alert and oriented Last oral intake: >/= 8 hours ASA classification: II Emergent: no Anesthetic plan: proceed Anesthesia type and monitoring: general LMA and standard monitoring Results Review: All pre-operative results and documents have been reviewed as part of the pre-operative evaluation. Informed Consent: The patient's anesthetic plan and its attendant risks and benefits were discussed with the patient/family/POA. Questions were solicited and answers provided to the satisfaction of the patient/family/POA.
[2023-07-10] MEDS: SCOPOLAMINE 1 MG PATCH 1 PATCH TRANSDERM (11:57)
--- NOTE | 2023-07-10 14:17 | WPDHPUPDATE1 ---
History and Physical Update Update Date/Time: 07/10/23 14:17 History and Physical has been reviewed, including an updated exam of the patient. There are NO changes in the patient's condition. Risks, benefits, and alternatives have been discussed and questions answered. Patient agrees to proceed with procedure.
[2023-07-10] MEDS: ceFAZolin 2 GM/D5W 50 ML 2 GM/50 ML BAG IVPB (14:26)
[2023-07-10] MEDS: BUPIVACAINE/EPINEPHRINE 0.5% 30 ML VIAL INFILTRATE (14:57)
--- NOTE | 2023-07-10 15:55 | W.PM.PROC2 ---
Procedure Note - Detailed Date of Procedure 07/10/23 Pre-op Diagnosis Endometrioma Rt Lower Quadrant Post-op Diagnosis Same Procedure Performed Excision 6 cm intramuscular endometrioma Surgeon John Fowler MD Resp Ther Veronica Santiago FRONT OFFICE DIRECTOR Anesthesia General and Local (0.5% Marcaine with epinephrine) Indications Patient is a 32-year-old woman who had a Caesarean section about 10 years ago. She has developed a mass in the right lower quadrant which is very painful during her menses. This was 3.3 cm in August of 2021. Biopsy in December of [address] scan June 19, 2023 showed that the mass had increased to 6 cm. It is very symptomatic. She is taken to surgery now for excision of right lower quadrant endometrioma. Findings The mass measured 6 cm by 5.5 cm x 4.5 cm. It was attached to the anterior rectus fascia which had to be removed to completely excise the mass. Description of Procedure Patient was taken to surgery and induced into general anesthesia. The proposed incision was marked on the skin and was long the lines of her previous section scar. The mass was easily palpable and the proposed incision was directly over the mass. Local anesthetic was infiltrated over the area of the anticipated incision and in the subcutaneous around the mass. Incision was made and dissection was carried through the skin. The skin and superficial subcutaneous was carefully dissected off of the mass. The mass was very firm but well circumscribed consistent with an endometrioma. We then continued dissecting all around the mass taking care not to enter it. We continued our dissection going circumferentially around the mass and progressively deeper into the wound. Eventually we came to the attachments to the anterior rectus fascia. With elevation, I was able to excise the mass but had to remove a 3 x 2.5 area of anterior rectus fascia. The mass was then measured with findings as above. I infiltrated additional local in to the areas of the anterior rectus fascia and around the area where it had been excised. We then closed the anterior rectus fascia with bidirectional running 0 Vicryl suture. I then placed 2 pieces of Xaracoll directly over the anterior fascial closure. We then closed Timo's fascia over this with interrupted 3-0 Vicryl suture. The last piece of Xaracoll was then placed in the subcutaneous. The skin was loosely approximated with 4-0 Vicryl subcuticular skin suture. Finally the skin was closed with a running 4-0 Monocryl skin suture. The wound was dressed with Exofin surgical adhesive. Patient was awakened and taken to recovery in good condition. Sponge needle counts were correct x2. Estimated Blood Loss -5 Drains No Packing No Pathology Yes (Right lower quadrant intramuscular mass, 6 cm) Complications No immediate complications Condition Stable Disposition PACU [facility] Billing Surgery - Charge Forward: Surgery Billing (Excision 6 cm intramuscular right lower quadrant soft tissue mass, no margin)
[2023-07-10] MEDS: ONDANSETRON INJ 4 MG/2 ML VIAL IV PUSH (17:16)
== END 2023-07-10 18:10 | disposition home or self-care (01) ==
PROVIDERS: PCP Emergency Medicine; Visit Provider Surgery
PROC: (CPT 22901; principal; 2023-07-10 13:30)
DX: N80.C11 Endometriosis of the anterior abdominal wall, fascia and muscular layers (principal)
CPT/HCPCS: 22901; 88304; A9270; J0690; J1100; J2250; J2405; J2704; J3010; J7120

== ENCOUNTER 2023-11-29 08:35 | Outpatient (CLI) | payer OTHER, SELFPAY ==
[2023-11-29 09:09] LABS: Alanine Aminotransferase 12 U/L (6-35); Albumin Level 4.3 g/dL (3.5-5.1); Alkaline Phosphatase 77 U/L (38-126); Anion Gap 8 mmol/L (4-12); Aspartate Amino Transferase 27 U/L (14-36); Bilirubin,Total 0.5 mg/dL (0.2-1.3); Blood Urea Nitrogen 13 mg/dL (7-17); Carbon Dioxide 27 mmol/L (22-30); Chloride 102 mmol/L (98-107); Estimated Glomerular Filt Rate > 60; Glucose 87 mg/dL (65-110); Potassium 4.2 mmol/L (3.4-5.0); Sodium 137 mmol/L (137-145)
[2023-11-29 09:40] LABS: Vitamin D 25 Hydroxy 24.3 ng/mL
[2023-11-29 09:49] LABS: HIV 1/2 Ab P24 Ag Result Negative (Negative)
[2023-11-29 09:54] LABS: Hepatitis B Surface Antigen Negative (Negative)
[2023-11-29 10:11] LABS: Hepatitis C Virus Antibody Negative (Negative)
[2023-11-29 11:12] LABS: Hemoglobin A1C 5.8 % (<5.7)
[2023-11-29 11:13] LABS: Rapid Plasma Reagin Non-Reactive (NonReactive)
== END 2023-11-29 08:36 | disposition home or self-care (01) ==
PROVIDERS: PCP Emergency Medicine; Visit Provider Nurse Practitioner Family
DX: E55.9 Vitamin D deficiency, unspecified (principal); R73.9 Hyperglycemia, unspecified; Z11.3 Encounter for screening for infections with a predominantly sexual mode of transmission
CPT/HCPCS: 36415; 80053; 82306; 83036; 86592; 86703; 86803; 87340; G0432

== ENCOUNTER 2023-12-27 08:42 | Emergency (ER) | payer OTHER, SELFPAY ==
--- NOTE | ~2023-12-27 | XR_ITS ---
EXAMINATION: XR chest 2V DATE: 12/27/2023 10:12 INDICATION: Cough and chills. Upper respiratory infection. TECHNIQUE: Frontal and lateral views of the chest were obtained. COMPARISON: Chest 2 view 07/05/2022, CT abdomen and pelvis 06/19/2023 FINDINGS: There is no pneumonia, pleural effusion, or pneumothorax. The heart size is normal. IMPRESSION: 1. No acute cardiopulmonary disease. Reviewed, dictated and finalized at location A.
[2023-12-27 10:50] LABS: Strep Group A RT-PCR NOT DETECTED (Negative)
--- NOTE | 2023-12-27 10:56 | ED.URI ---
HPI - URI/Sore Throat General Chief Complaint: Upper Respiratory Infection Stated Complaint: flu like s/s Time Seen by Provider: 12/27/23 09:33 History of Present Illness HPI Narrative: 33-year-old female presenting with viral symptoms. For the last couple of days she has had nasal congestion, sore throat, cough, body aches. No chest pain or shortness of breath. No abdominal pain, nausea vomiting, diarrhea. No leg swelling. Related Data Home Medications Medication Instructions Recorded Confirmed bxyjkoedylzu-iyxulrrq-cecd tablet PO 12/10/23 12/10/23 fumarate 18 mg-folic acid 400 mcg tablet (One-A-Day Women's Complete) Allergies Allergy/AdvReac Type Severity Reaction Status Date / Time metronidazole AdvReac Intermediate Nausea Verified 12/19/23 15:54 oxycodone AdvReac Intermediate Nausea Verified 12/19/23 15:54 Review of Systems Review of Systems: All systems reviewed & are unremarkable except as noted in HPI and below PMFSH Past Medical History Medical History Endometrioma (~06/2023) Prediabetes Vitamin D deficiency Surgical History Surgical History H/O section (~02/04/10) History of vaginal delivery 04/2009, 08/2015 History of wisdom tooth extraction (~08/2020) Hx of excision of mass (~07/2023) Excision 6 cm intramuscular endometrioma 07/10/23 Family History Family History Father No problems noted. Mother Alcoholism Hypertension Heart disease Thyroid disease Grandparent Hypertension Cerebrovascular accident Lung cancer Social History Social History Smoking status: Never smoker Alcohol intake: current Alcohol use details: socially Substance use: never Substance use type: does not use Do You Feel Safe in your Home?: Yes Lack of Transportation: No Lack of Food: Never True Current Housing: I Have Housing Concerned About Future Housing: No Difficulty Paying Gas/Electric Bills: No Difficulty Paying for Meds: No Currently Unemployed: No Education: Associate Degree Difficulty w/ Childcare or Family Care: No Living arrangements: alone Gender identity (if verbalized by the patient): Female Spiritual care concerns: No Exam Narrative: GENERAL: Nontoxic, no acute distress HEAD: Normocephalic, atraumatic. EYES: PERRLA and EOMI. ENT: No pharyngeal erythema, edema, or exudates; mucous membranes are moist NECK: Supple. CHEST: Clear to auscultation. No respiratory distress. HEART: Regular rate and rhythm. ABDOMEN: Soft, nontender, nondistended EXTREMITIES: Normal range of motion. SKIN: Warm, dry, no rash. NEURO: Alert and oriented x3. PSYCH: Normal mood and affect. Course Vital Signs Vital signs: Vital Signs Temperature 97.6 F 12/27/23 11:02 Pulse Rate 115 H 12/27/23 11:02 Respiratory Rate 16 12/27/23 11:02 Blood Pressure 147/109 H 12/27/23 11:02 Pulse Oximetry 100 12/27/23 11:02 Temperature 97.6 F 12/27/23 11:02 Pulse Rate 115 H 12/27/23 11:02 Respiratory Rate 16 12/27/23 11:02 Blood Pressure 147/109 H 12/27/23 11:02 Pulse Oximetry 100 12/27/23 11:17 Oxygen Delivery Room Air 12/27/23 11:17 MDM - URI/Sore Throat MDM Narrative Medical decision making narrative: 33-year-old female presenting with viral infection symptoms. Patient is a bit tachycardic, otherwise vitals are within normal limits. Patient is positive for COVID-19. Chest x-ray is unremarkable. On re-evaluation, patient is resting comfortably. She is safe for outpatient management. Tylenol ibuprofen for body aches and fevers. Advised PCP follow-up. Appropriate return precautions given. Discharged in stable condition. Differential Diagnosis Differential diagnosis: Likely upper respi
[2023-12-27 11:02] VITALS: BP 147/109; PULSE 115; RESP 16; TEMP 36.4; O2SAT 100
--- NOTE | 2023-12-27 11:14 | PC.NURSE ---
Bedside report given to BEREKET Nunez.
[2023-12-27 11:17] VITALS: O2SAT 100
[2023-12-27 11:31] LABS: Influenza A QL RT-PCR Negative (Negative); Influenza B QL RT-PCR Negative (Negative); RSV RNA, RT-PCR Negative (Negative); SARS-CoV-2 RNA PCR Positive (Negative)
[2023-12-27] MEDS: IBUPROFEN 600 MG TABLET PO (12:15)
[2023-12-27] MEDS: ACETAMINOPHEN 500 MG TABLET 1000 MG PO (12:15)
[2023-12-27 12:55] VITALS: TEMP 37.2
== END 2023-12-27 12:56 | disposition home or self-care (01) ==
PROVIDERS: Emergency Provider Emergency Medicine; PCP Family Medicine
DX: U07.1 COVID-19 (principal); R73.03 Prediabetes; E55.9 Vitamin D deficiency, unspecified
CPT/HCPCS: 71046; 87637; 87651; 99283; A9270

== ENCOUNTER 2024-06-25 16:36 | Outpatient (CLI) | payer OTHER, SELFPAY ==
--- OUTSIDE RECORDS SUMMARY | 2024-06-25 16:38 | XMS_ITS | Clinical Summary ---
Author Organization [facility] Address [address] [place] [address] Care Team Providers Care Futures Trader Name Role Phone Unavailable Primary Care Provider Unavailabl e Source Comments [facility],non-owned Affiliates and Associated Physician Practices is amultiple site organization consisting of ambulatory clinics and hospital sitesin [place], [place], [place] and [place]. This disclosure is being madepursuant to the Care Everywhere program and may not contain all information available regarding this patient. Last updated 18.[facility] Allergies No known active allergies Medications * Be aware that medications may not be up to date on this document. Alwaysverify current medications with the patient. Medication Sig Dispensed Refills Start Date End Date Status Rye-Agv-DL-Fish Oil ([facility] PO) Take 2 Tabs by mouth Active ferrous sulfate 325 (65 FE) MG tablet Take 1 Tab by mouth 2 times daily 60 Tab 5 06/28/2015 Active docusate sodium (COLACE) 100 MG capsule Take 1 Cap by mouth once daily 30 Cap 5 07/26/2015 Active ibuprofen (MOTRIN) 600 MG tablet Take 1 Tab by mouth every 6 hours as needed for Pain 60 Tab 0 08/18/2015 Active docusate sodium (COLACE) 100 MG capsule Take 1 Cap by mouth 2 times daily 30 Cap 1 08/18/2015 Active Active Problems Patient Care Coordination No te Formatting of this note migh t be different from the original. 4/1/16 + GBBS 08/03/15 Per [facility]- unable to presently locate op report from prior delivery due to change in services. Will continue to search. Pt [facility] her [place] [facility] @ [phone] Problem Noted Date Diagnosed Date Vaginal after delivery 08/16/2015 GBS (group B Streptococcus c arrier), +RV culture, currently 08/04/2015 GDM (gestational diabetes mellitus) 06/28/2015 Amniotic disorder in third trimester 06/14/2015 Overview (08/03/2016): IMO Update 08/03/2016 Obesity 03/15/2015 Overview (03/15/2015): Body mass index is 33.83 kg/(m^2). H/O section 03/15/2015 Overview (07/03/2015): G2 for breech and complete Request to [facility] revealed no records in storage as of H/O Pre-Eclampsia? 03/15/2015 Overview (03/15/2015): G1- IOL at 36 weeks for HTN Supervision of high-risk 03/14/2015 Overview (08/04/2015): PNL: A+/I/-/-, NR H/H/Plt: 11.4/36.4/267 Urine Cx: neg GC/CT: neg/neg HgbE: neg Pap: wnl CF: neg UDS: neg Quad screen low risk GBS pos H/O delivery, currently 015 Overview (03/15/2015): G1: IOL at 36 weeks for HTN, G2: CS at 28wk for PTL and breech, demise, vaginal bleeding Encounter for repeat ultraso und for low lying placenta, antepartum Encounter for routine screen ing for malformation using ultrasonics Gestational diabetes mellitus Gestational diabetes mellitus (GDM) state Gestational diabetes mellitus, delivered Resolved Problems Problem Noted Date Diagnosed Date Resolved Date Screening, , for ma lformation by ultrasound 03/22/2015 03/22/2015 Obesity affecting in second trimester 03/22/2015 03/22/2015 Placenta previa without hemo rrhage, antepartum 03/22/2015 08/16/2015 Overview (03/22/2015): Posterior placenta previa Immunizations Name Administration Dates Next Due Rho D Immune Globulin 06/14/2015 TDAP (7yrs+) 06/14/2015 Social History Tobacco Use Types Packs/Day Years Used Date Smoking Tobacco: Never Smokeless Tobacco: Never Alcohol Use Standard Drinks/Week Comments No 0 (1 standard drink = 0.6 oz pur e alcohol) Sex and Gender Information Value Date Recorded Sex Assigned at Female 09/12/2021 10:45 PM CDT Gender Identity Female 09/12/2021 10:45 PM CDT Sexual Orientation Straight 09/12/2021 10 :45 PM CDT Last Filed Vital Signs Vital Sign Reading Time Taken Comments Blood Pressure 124/86 09/27/2015 10:15 AM CDT Pulse 98 09/27/2015 10:15 AM CDT Temperature 36.6 C (97.9 F) 08/18/2015 8:25 AM CDT Respiratory Rate 20 09/27/2015 10:15 AM CDT Oxygen Saturation 100% 08/18/2015 8:25 AM CDT Inhaled Oxygen Concentration - - Weight 81.2 kg (179 lb) 09/27/2015 10:15 AM CDT Height 157.5 cm (5' 2) 09/27/2015 10:15 AM CDT Body Mass Index 32.74 09/27/2015 10:15 AM CDT Plan of Treatment Health Maintenance Due Date Last Done Comments PAP SMEAR 1990 HIV SCREENING 2005 HEPATITIS C SCREENING 11/20/2008 HEPATITIS B VACCINE (1 of 3 - 19+ 3-dose series) 2009 COVID-19 VACCINE ( - 2023-2 5 season) 2024 INFLUENZA VACCINE (#1) 2024 7, 03/03/2015 DEPRESSION SCREENING 05/05/2024 DTAP/TDAP/TD VACCINES (2 - T d or Tdap) 06/14/2025 06/14/2015 ZOSTER VACCINE (1 of 2) 2040 HIB VACCINE Aged Out No longer eligi ble based on patient's age to complete this topic HPV VACCINE Aged Out No longer eligi ble based on patient's age to complete this topic MENINGOCOCCAL (Group B) VACCINE Aged Out No longer eligible b ased on patient's age to complete this topic MENINGOCOCCAL VACCINE Aged Out No sonja darline eligible based on patient's age to complete this topic PNEUMOCOCCAL VACCINE Aged Out No long er eligible based on patient's age to complete this topic Advance Directives * Full Code (Latest Code Status on File) Date Activated Date Inactivated Comments 08/16/2015 10:19 PM 08/18/2015 4:47 PM
--- OUTSIDE RECORDS SUMMARY | 2024-06-25 16:38 | XMS_ITS | Referral Summary ---
Author Organization [facility] [employer] Address [address] [place] [address] Care Team Providers Care Sewage Plant Operator Name Role Phone Unavailable Primary Care Provider Unavailabl e Source Comments [facility],non-owned Affiliates and Associated Physician Practices is amultiple site organization consisting of ambulatory clinics and hospital sitesin [place], [place], [place] and [place]. This disclosure is being madepursuant to the Care Everywhere program and may not contain all information available regarding this patient. Last updated 18.[facility] Allergies No known active allergies Medications * Be aware that medications may not be up to date on this document. Alwaysverify current medications with the patient. Medication Sig Dispensed Refills Start Date End Date Status Lbh-Slk-UV-Fish Oil ([facility] PO) Take 2 Tabs [...] Will continue to search. Pt [facility] her [place] [facility] @ [phone] Problem Noted Date Diagnosed Date Vaginal after [...] Mass Index 32.74 09/27/2015 10:15 AM CDT Functional Status Functional Status Response Date of Assess ment Is person deaf or have serious hearing difficult y? No 08/17/2015 Is person blind or have serious difficulty seein g? No 08/17/2015 Does person have serious dif ficulty walking/climbing stairs? No 08/17/2015 Does person have difficulty dressing/bathing? No 08/17/2015 Does person have difficulty doing errands alone? No 08/17/2015 Cognitive Status Response Date of Assessm ent Does person have difficulty concentrating/remembering/making decisions? No 08/17/2015 Plan of Treatment Not on file Advance Directives * Full Code (Latest Code Status on File) Date Activated Date Inactivated Comments 08/16/2015 10:19 PM 08/18/2015 4:47 PM
--- OUTSIDE RECORDS SUMMARY | 2024-06-25 16:39 | XMS_ITS | Clinical Summary ---
Author Organization [facility] Address [address] [place] [id number] Care Team Providers Care Honing Machine Set Up Operator Tool Name Role Phone Unavailable Primary Care Provider Unavailabl e Social History Tobacco Use Types Packs/Day Years Used Date Smoking Tobacco: Never Assessed Comments Unknown Sex and Gender Information Value Date Recorded Sex Assigned at Not on file Legal Sex Female 5:25 PM CDT Gender Identity Not on file Sexual Orientation Not on file Plan of Treatment Health Maintenance Due Date Last Done Comments Cervical Cancer Screening Pa p Smear (Age 30 to 64) Every 3 Years 1990 Annual Physical 1993 Hepatitis C 2008 DTaP, Tdap and Td Vaccines ( 1 - Tdap) 2009 Hepatitis B Vaccines (1 of 3 - 19+ 3-dose series) 2009 Cervical Cancer Screening Pa p with HPV Testing (Age 30 to 64) Every 5 Years 2020 Cervical Cancer Screening with HPV 2020 COVID-19 Vaccine (2023-2 5 season) 2024 Influenza Adult (#1) 2024 HPV Vaccines Aged Out No longer eligi ble based on patient's age to complete this topic Meningococcal B Vaccine Aged Out No l onger eligible based on patient's age to complete this topic Meningococcal Vaccine Aged Out No sonja darline eligible based on patient's age to complete this topic Pneumococcal Vaccine: Pediat rics (0 to 5 Years) and At-Risk Patients (6 to 64 Years) Aged Out No longer eligible b ased on patient's age to complete this topic RSV Immunizations Under 20 Months Aged Out No longer eligible based on patient's age to complete this topic
--- OUTSIDE RECORDS SUMMARY | 2024-06-25 16:39 | XMS_ITS | Data Portability ---
Author Organization [facility] Address [address] [place] [address] Assessment No assessment recorded. Plan of Treatment Reminders Order Date Submit Date Provider Last Modified By Organization Details Last Modified Time Details Appointments None record ed. Lab pap, IG + HPV, cervic al - please use Z11.51 in additi on to code above for HPV testin g. 2020 021 SOM [facility], [address], [place], [address], 16:11:48 CBC 2020 021 S[facility], [address], [place], [address], 1 08:22:10 TSH, ultra- sensit ld, serum 2020 021 [facility], [address], [place], [address], 08:22:12 CMP, serum or plasma 2020 021 [email or web address] [facility], [address], [place], [address], 2 09:43:45 HbA1c (hemog lobin A1c), blood 2020 021 [email or web address] [facility], [address], [place], [address], 1 12:33:18 lipid panel, serum 2020 [facility], [address], [place], [address], 08:22:10 hepati tis panel (A+B+C ), acute, serum 2020 [facility], [address] [place] [address], [address], [place], [address], 08:22:11 hepati tis B surfac e Ab, qualit ative, serum 2020 [facility], [address] [place] [address], [address], [place], [address], 08:22:13 HIV 1+2 AB + HIV 1 p24 Ag, qualit ative immuno assay, serum 2020 [facility], [address], [place], [address], 08:22:14 HSV 2 IgG Ab, QN, IA, serum 2020 [facility], [address] [place] [address], [address], [place], [address], 08:22:15 RPR (rapid plasma reagin ), serum 2020 [facility], [address] [place] [address], [address], [place], [address], 08:22:13 bacter ial vagino sis panel, vagina l 2020 [facility], [address] [place] [address], [address], [place], [address], 10/19/202 1 03:07:08 cultur e, vagina l/rect al, strept ococcu s group B 2020 021 [facility], [address] [place] [address], [address], [place], [address], 1 03:07:09 urinal ysis comple te, reflex cultur e 2020 021 [facility], [address], [place], [address], 1 09:20:42 CBC w/ auto diff 2020 021 [facility], [address], [place], [address], 1 06:11:12 CMP, serum or plasma 2020 021 [facility], [address], [place], [address], 1 06:11:12 lipid panel, serum 2020 021 [facility], [address], [place], [address], 1 06:11:14 urinal ysis, dipsti ck 2020 021 [facility], [address], [place], [address], 1 06:11:13 bacter ial vagino sis panel, vagina l 2020 021 [facility], [address] [place] [address], [address], [place], [address], 1 09:38:58 cultur e, vagina l/rect al, strept ococcu s group B 2020 021 [facility], [address] [place] [address], [address], [place], [address], 09:38:59 SARS CoV 2 RNA (COVID -19), QL, backside grinder-PC R, respir atory specim en - fatigu e, chest pain, body aches, . expose d to pos COVID person . wicho montgomery 2019@ 1200 2019 020 [facility] (Lab), [address] [place], [address], 0 11:06:14 Referral None record ed. Procedures None record ed. Surgeries None record ed. Imaging MAMMO, screen ing, bilate ral 2020 [facility] (Imaging), [address] [facility] [address], [address], 11:42:04 US, pelvis , comple te - Mass, right of midlin e above the Pfanne nstiel scar 2020 [facility] (One Call Scheduling), [address] [place], [address], 13:21:30 Medication Orders multiv itamin tablet 2020 [facility], [address] [place] [address], [address], 12:47:35 Calciu m with Vitami n D 600 mg-10 mcg (400 unit) tablet 2020 021 [facility], [address] [place] [address], [address], 12:47:37 acyclo vir 800 mg tablet 2020 021 [facility], [address] [place] [address], [address], 11:42:57 flucon azole 150 mg tablet 2020 [facility], [address] [place] [address], [address], 15:50:13 metron idazol e 0.75 % (37.5 mg/5 gram) vagina l gel 2020 [facility], [address] [place] [address], [address], 1 15:50:08 multiv itamin tablet 2020 [facility], [address] [place] [address], [address], 11:42:59 Calciu m with Vitami n D 600 mg-10 mcg (400 unit) tablet 2020 [place] [address], [address] [place] [address], [address], 11:42:45 Patient TargetsNo targets recorded. Patient Instructions Encounter Date Encounter Id Patient Instructions Last Modified By Organization Details Last Modified Time 01/04/2020 [id number] Reviewed the following recommendations: -Stay home and separate from others as much as possible. -Monitor your symptoms and seek medical attention for trouble breathing, persistent chest pain, confusion, or bluish lips or face. -Wear a mask if you must be around other people. -Wash your hands often for 20 seconds with soap and water and clean high-touch surfaces daily -You may discontinue home isolation if your symptoms are improving and it has been 10 days since symptoms started. [email or web address] Not available 01/04/2020 12:00:36 06/28/2020 [id number] genital herpes: care instructions mary Not available 06/28/2020 11:42:38 bacterial vaginosis: care instructions johnerman Not available 06/28/2020 11:42:38 08/25/2020 [id number] Labs US Follow up in 1 week oajao Not available 08/25/2020 16:16:24 09/06/2020 [id number] body mass index: care instructions oajao Not available 09/06/2020 11:57:48 learning about healthy weight oajao Not available 09/06/2020 11:57:48 Labs Low cholesterol diet Follow up with Dr Martinez Follow up in 6 months [email or web address] Not available 09/06/2020 12:11:50 02/12/2021 [id number] learning about breast cancer screening mwasserman Not available 02/12/2021 12:47:29 Reason for Referral None Reported. Results Created Date Observation Date Name Description Value Unit Range Abnormal Flag Note LastModifiedBy Organization Detail LastModifiedTime 01/05/2001/05/2020 SARS CoV 2 RNA (COVI D-19) , QL, backside grinder-P CR, respi rator y speci men sars - cov - 2 PCR NEGATI VE mL Not Available [facility] (Lab) [address] [place], [address], 01/07/2020 11:06:14 01/05/20 20 01/05/2020 SARS CoV 2 RNA (COVI D-19) , QL, backside grinder-P CR, respi rator y speci men covidcom1 COMME NTS: This assay is desig jace to detec t the RdRp and N genes of SARS- CoV-2 using nucle ic acid ampli ficat ion. A negat ld resul t does not precl ude the possi bilit y of 2019- nCoV infec tion since the adequ acy of sampl e colle ction and/o r low viral burde n may resul t in the prese nce of viral nucle ic acids level s below the elena tical sensi tivit y of this test metho d. Not Available [facility] (Lab) [address] [facility], [place], [address], 01/07/2020 11:06:14 01/05/20 20 01/05/2020 SARS CoV 2 RNA (COVI D-19) , QL, backside grinder-P CR, respi rator y speci men covidcom2 Posit ld resul ts are indic ative of the prese nce of SARS- CoV-2 RNA and do not rule out bacte rial infec tion or co-in fecti on with other virus es. Not Available [facility] (Lab) [address] [place], [address], 01/07/2020 11:06:14 01/05/20 20 01/05/2020 SARS CoV 2 RNA (COVI D-19) , QL, backside grinder-P CR, respi rator y speci men covidcom3 Test resul ts shoul d be used along with other clini bee obser vatio ns, patie nt histo ry, epide miolo gical infor matio n and labor at[facility] data [facility] the diagn osis. Not Available [facility] (Lab) [address] [place], [address], 01/07/2020 11:06:14 01/05/20 20 01/05/2020 SARS CoV 2 RNA (COVI D-19) , QL, backside grinder-P CR, respi rator y speci men covidcom4 This test has recei porfirio FDA Emerg ency Use Autho rizat ion and has been verif ied by [facility] . This test is only autho rized for the durat ion of the decla ratio n and the circu mstan ben that exist to justi fy the autho rizat ion of the emerg ency use of in vitro diagn ostic tests for the detec tion of SARS- CoV-2 virus and/o r diagn osis of COVID -19 infec tion under secti on 564 (b) (1) of the Act. 11 U.S.C . 360bb b-3 (b) (1), unles s the autho rizat ion is termi nated or revok ed soone r. Not Available [facility] (Lab) [address] [place], [address], 01/07/2020 11:06:14 01/05/20 20 01/05/2020 SARS CoV 2 RNA (COVI D-19) , QL, backside grinder-P CR, respi rator y speci men covidcom5 [facility] is certi fied under CLIA- 88 as quali fied to perfo rm high compl exity testi ng. This testi ng was perfo rmed in the [facility] [place] [place] [address] (CLIA Licen se #[id number] [id number], CAP #[id number], AU-ID #[id number]). Not Available [facility] (Lab) [address] [place], [address], 01/07/2020 11:06:14 01/05/20 20 01/05/2020 SARS CoV 2 RNA (COVI D-19) , QL, backside grinder-P CR, respi rator y speci men covidcom6 Facts heet for healt hcare provi ders: https ://ww w.fda .gov/ media /1362 56/do wnloa d Facts heet for patie nts: https ://[employer]fda .gov/ media /1362 57/do wnloa d Not Available [facility] (Lab) [address] [place], [address], 01/07/2020 11:06:14 06/28/19 21 07/01/2020 bacte rial vagin osis panel , vagin al hsv 1 DEANDRA Negati ve negati ve Not Available [facility] ([facility]) [address] [place], [address], 07/04/2020 09:38:58 06/28/19 21 07/01/2020 bacte rial vagin osis panel , vagin al hsv 2 DEANDRA Negati ve negati ve Not Available [facility] ([facility]) [address] [place], [address], 07/04/2020 09:38:58 06/28/19 21 07/03/2020 bacte rial vagin osis panel , vagin al atopobium vaginae Low - 0 score Not Available [facility] ([facility]) [address] [place], [address], 07/04/2020 09:38:58 06/28/19 21 07/03/2020 bacte rial vagin osis panel , vagin al bvab 2 Low - 0 score Not Available [facility] ([facility]) [address] [place], [address], 07/04/2020 09:38:58 06/28/19 21 07/03/2020 bacte rial vagin osis panel , vagin al megasphaera 1 Low - 0 score Calcu late total score by mari leizabeth the 3 indiv idual bacte rial vagin osis (BV) marke r score s toget her. Total score is inter prete d as follo ws: Total score 0-1: Indic ates the absen ce of BV. Total score 2: Indet ermin ate for BV. Addit ional clini bee data shoul d be evalu ated to estab malachi a diagn osis. Total score 3-6: Indic ates the prese nce of BV. This test was devel oped and its perfo rmanc e roxy cteri stics deter mined by [facility]. It has not been clear ed or appro porfirio by the Food and Drug Admin istra tion. Not Available [facility] ([facility]) [address] [place], [address], 07/04/2020 09:38:58 06/28/19 21 07/03/2020 bacte rial vagin osis panel , vagin al yas albicans, DEANDRA Negati ve negati ve Not Available [facility] ([facility]) [address] [place], [address], 07/04/2020 09:38:58 06/28/19 21 07/03/2020 bacte rial vagin osis panel , vagin al yas glabrata, DEANDRA Negati ve negati ve Not Available [facility] ([facility]) [address] [facility] [place], [address], 07/04/2020 09:38:58 06/28/19 21 07/04/2020 bacte rial vagin osis panel , vagin al trich vag by DEANDRA Negati ve negati ve Not Available [facility] ([facility]) [address] [place], [address], 07/04/2020 09:38:58 06/28/19 21 07/04/2020 bacte rial vagin osis panel , vagin al chlamydia trachomatis, DEANDRA Negati ve negati ve Not Available [facility] ([facility]) [address] [place], [address], 07/04/2020 09:38:58 06/28/19 21 07/04/2020 bacte rial vagin osis panel , vagin al neisseria gonorrhoeae, DEANDRA Negati ve negati ve Not Available [facility] ([facility]) [address] [place], [address], 07/04/2020 09:38:58 06/28/19 21 06/30/2020 cultu re, vagin al/re ctal, strep tococ cus group B strep gp B DEANDRA Positi ve negati ve abnormal Cente rs for Disea se Contr ol and Preve ntion (CDC) and Ameri can Congr ess of Obste trici ans and Gynec ologi sts (ACOG ) guide lines for preve ntion of perin atal group B strep tococ bee (GBS) disea se speci fy co-co llect ion of a vagin al and recta l swab speci men to maxim ize sensi tivit y of GBS detec tion. Per the CDC and ACOG, swabb ing both the lower vagin a and rectu m subst antia lly incre ases the yield of detec tion juventino red with sampl ing the vagin a alone . Penic illin G, ampic illin , or cefaz oralia are indic ated for intra partu m proph ylaxi s of perin atal GBS colon izati on. Refle x susce ptibi lity testi ng shoul d be perfo rmed prior to use of clind amyci n only on GBS isola diogo from penic illin -benedict rgic women who are consi dered a high risk for anaph ylaxi s. Treat ment with vanco mycin witho ut addit ional testi ng is warra nted if resis tance to clind amyci n is noted . Not Available [facility] ([facility]) [address] [facility], [place], [address], 07/04/2020 09:38:59 08/29/1908/29/2020 CBC w/ auto diff WBC 8.6 x10e3 /uL 3.4-10 .8 Not Available [facility] ([facility]) [address] [place], [address], 08/29/2020 06:11:11 08/29/1908/29/2020 CBC w/ auto diff RBC 4.00 x10e6 /uL 3.77-5 .28 Not Available [facility] ([facility]) [address] [place], [address], 08/29/2020 06:11:11 08/29/19 21 08/29/2020 CBC w/ auto diff hemoglobin 12.3 g/dL 11.1-1 5.9 Not Available [facility] ([facility]) [address] [place], [address], 08/29/2020 06:11:11 08/29/19 21 08/29/2020 CBC w/ auto diff hematocrit 37.7 % 34.0-4 6.6 Not Available [facility] ([facility]) [address] [place], [address], 08/29/2020 06:11:11 08/29/19 21 08/29/2020 CBC w/ auto diff MCV 94 fL 79-97 Not Available [facility] ([facility]) [address] [place], [address], 08/29/2020 06:11:11 08/29/19 21 08/29/2020 CBC w/ auto diff MCH 30.8 pg 26.6-3 3.0 Not Available [facility] ([facility]) [address] [facility], [place], [address], 08/29/2020 06:11:11 08/29/19 21 08/29/2020 CBC w/ auto diff MCHC 32.6 g/dL 31.5-3 5.7 Not Available [facility] ([facility]) [address] [facility], [place], [address], 08/29/2020 06:11:11 08/29/19 21 08/29/2020 CBC w/ auto diff RDW 13.0 % 11.7-1 5.4 Not Available [facility] ([facility]) [address] [facility], [place], [address], 08/29/2020 06:11:11 08/29/19 21 08/29/2020 CBC w/ auto diff platelets 322 x10e3 /uL 150-45 0 Not Available [facility] ([facility]) [address] [facility], [place], [address], 08/29/2020 06:11:11 08/29/19 21 08/29/2020 CBC w/ auto diff neutrophils 64 % not estab. Not Available [facility] ([facility]) [address] [facility], [place], [address], 08/29/2020 06:11:11 08/29/19 21 08/29/2020 CBC w/ auto diff lymphs 29 % not estab. Not Available [facility] ([facility]) [address] [facility], [place], [address], 08/29/2020 06:11:11 08/29/19 21 08/29/2020 CBC w/ auto diff monocytes 5 % not estab. Not Available [facility] ([facility]) [address] [facility], [place], [address], 08/29/2020 06:11:11 08/29/19 21 08/29/2020 CBC w/ auto diff eos 2 % not estab. Not Available [facility] ([facility]) [address] [place], [address], 08/29/2020 06:11:11 08/29/19 21 08/29/2020 CBC w/ auto diff basos 0 % not estab. Not Available [facility] ([facility]) [address] [place], [address], 08/29/2020 06:11:11 08/29/19 21 08/29/2020 CBC w/ auto diff immature cells SALESP[employer] FLOOR COVERINGS Not Available [facility] ([facility]) [address] [place], [address], 08/29/2020 06:11:11 08/29/1908/29/2020 CBC w/ auto diff neutrophils (absolute) 5.5 x10e3 /uL 1.4-7. 0 Not Available [facility] ([facility]) [address] [place], [address], 08/29/2020 06:11:11 08/29/19 21 08/29/2020 CBC w/ auto diff lymphs (absolute) 2.5 x10e3 /uL 0.7-3. 1 Not Available [facility] ([facility]) [address] [place], [address], 08/29/2020 06:11:11 08/29/1908/29/2020 CBC w/ auto diff monocytes(ab solute) 0.4 x10e3 /uL 0.1-0. 9 Not Available [facility] ([facility]) [address] [place], [address], 08/29/2020 06:11:11 08/29/19 21 08/29/2020 CBC w/ auto diff eos (absolute) 0.2 x10e3 /uL 0.0-0. 4 Not Available [facility] ([facility]) [address] [place], [address], 08/29/2020 06:11:11 08/29/19 21 08/29/2020 CBC w/ auto diff baso (absolute) 0.0 x10e3 /uL 0.0-0. 2 Not Available [facility] ([facility]) [address] [facility], [place], [address], 08/29/2020 06:11:11 08/29/1908/29/2020 CBC w/ auto diff immature granulocytes 0 % not estab. Not Available [facility] ([facility]) [address] [facility], [place], [address], 08/29/2020 06:11:11 08/29/19 21 08/29/2020 CBC w/ auto diff immature grans (abs) 0.0 x10e3 /uL 0.0-0. 1 Not Available [facility] ([facility]) [address] [place], [address], 08/29/2020 06:11:11 08/29/19 21 08/29/2020 CBC w/ auto diff NRBC [employer]LO[employer] COVERINGS Not Available [facility] ([facility]) [address] [place], [address], 08/29/2020 06:11:11 08/29/19 21 08/29/2020 CBC w/ auto diff hematology comments: [employer] COVERINGS Not Available [facility] ([facility]) [address] [place], [address], 08/29/2020 06:11:11 08/29/19 21 08/29/2020 CMP, serum or plasm a glucose 88 mg/dL 65-99 Not Available [facility] ([facility]) [address] [place], [address], 08/29/2020 06:11:12 08/29/19 21 08/29/2020 CMP, serum or plasm a BUN 13 mg/dL 6-20 Not Available [facility] ([facility]) [address] [facility], [place], [address], 08/29/2020 06:11:12 08/29/19 21 08/29/2020 CMP, serum or plasm a creatinine 0.88 mg/dL 0.57-1 .00 Not Available [facility] ([facility]) [address] [facility], [place], [address], 08/29/2020 06:11:12 08/29/19 21 08/29/2020 CMP, serum or plasm a eGFR if nonafricn AM 89 mL/mi n/1.7 3 >59 Not Available [facility] ([facility]) [address] [facility], [place], [address], 08/29/2020 06:11:12 08/29/19 21 08/29/2020 CMP, serum or plasm a eGFR if africn AM 103 mL/mi n/1.7 3 >59 Lab sonal curre ntly repor ts eGFR in compl iance with the curre nt recom menda tions of the Natio nal Kidne y Found ation . [facility] will updat e repor ting as new guide lines are publi shed from the NKF-A SN Task force . Not Available [facility] ([facility]) [address] [facility], [place], [address], 08/29/2020 06:11:12 08/29/19 21 08/29/2020 CMP, serum or plasm a BUN/creatini ne ratio 15 9-23 Not Available [facility] ([facility]) [address] [place], [address], 08/29/2020 06:11:12 08/29/19 21 08/29/2020 CMP, serum or plasm a sodium 141 mmol/ L 134-14 4 Not Available [facility] ([facility]) [address] [place], [address], 08/29/2020 06:11:12 08/29/1908/29/2020 CMP, serum or plasm a potassium 4.3 mmol/ L 3.5-5. 2 Not Available [facility] ([facility]) [address] [place], [address], 08/29/2020 06:11:12 08/29/1908/29/2020 CMP, serum or plasm a chloride 104 mmol/ L 96-106 Not Available [facility] ([facility]) [address] [place], [address], 08/29/2020 06:11:12 08/29/1908/29/2020 CMP, serum or plasm a carbon dioxide, total 25 mmol/ L 20-29 Not Available [facility] ([facility]) [address] [place], [address], 08/29/2020 06:11:12 08/29/1908/29/2020 CMP, serum or plasm a calcium 9.4 mg/dL 8.7-10 .2 Not Available [facility] ([facility]) [address] [place], [address], 08/29/2020 06:11:12 08/29/1908/29/2020 CMP, serum or plasm a protein, total 8.0 g/dL 6.0-8. 5 Not Available [facility] ([facility]) [address] [place], [address], 08/29/2020 06:11:12 08/29/1908/29/2020 CMP, serum or plasm a albumin 3.9 g/dL 3.9-5. 0 Not Available [facility] ([facility]) [address] [place], [address], 08/29/2020 06:11:12 08/29/19 21 08/29/2020 CMP, serum or plasm a globulin, total 4.1 g/dL 1.5-4. 5 Not Available [facility] ([facility]) [address] [place], [address], 08/29/2020 06:11:12 08/29/19 21 08/29/2020 CMP, serum or plasm a A/G ratio 1.0 1.2-2. 2 below low normal Not Available [facility] ([facility]) [address] [place], [address], 08/29/2020 06:11:12 08/29/1908/29/2020 CMP, serum or plasm a bilirubin, total 0.4 mg/dL 0.0-1. 2 Not Available [facility] ([facility]) [address] [place], [address], 08/29/2020 06:11:12 08/29/19 21 08/29/2020 CMP, serum or plasm a alkaline phosphatase 62 IU/L 39-117 Not Available [facility] ([facility]) [address] [place], [address], 08/29/2020 06:11:12 08/29/19 21 08/29/2020 CMP, serum or plasm a AST (SGOT) 12 IU/L 0-40 Not Available [facility] ([facility]) [address] [place], [address], 08/29/2020 06:11:12 08/29/19 21 08/29/2020 CMP, serum or plasm a ALT (SGPT) 4 IU/L 0-32 Not Available [facility] ([facility]) [address] [place], [address], 08/29/2020 06:11:12 08/29/19 21 08/29/2020 urina lysis , dipst ick specific gravity 1.025 1.005- 1.030 Not Available [facility] ([facility]) [address] [place], [address], 08/29/2020 06:11:13 08/29/1908/29/2020 urina lysis , dipst ick pH 6.0 5.0-7. 5 Not Available [facility] ([facility]) [address] [place], [address], 08/29/2020 06:11:13 08/29/1908/29/2020 urina lysis , dipst ick urine-color YELLOW yellow Not Available [facility] ([facility]) [address] [place], [address], 08/29/2020 06:11:13 08/29/1908/29/2020 urina lysis , dipst ick appearance CLEAR clear Not Available [facility] ([facility]) [address] [place], [address], 08/29/2020 06:11:13 08/29/1908/29/2020 urina lysis , dipst ick WBC esterase NEGATI VE negati ve Not Available [facility] ([facility]) [address] [place], [address], 08/29/2020 06:11:13 08/29/1908/29/2020 urina lysis , dipst ick protein 1+ negati ve/tra ce abnormal Not Available [facility] ([facility]) [address] [place], [address], 08/29/2020 06:11:13 08/29/1908/29/2020 urina lysis , dipst ick glucose NEGATI VE negati ve Not Available [facility] ([facility]) [address] [place], [address], 08/29/2020 06:11:13 08/29/19 21 08/29/2020 urina lysis , dipst ick ketones NEGATI VE negati ve Not Available [facility] ([facility]) [address] [place], [address], 08/29/2020 06:11:13 08/29/19 21 08/29/2020 urina lysis , dipst ick occult blood NEGATI VE negati ve Not Available [facility] ([facility]) [address] [facility], [place], [address], 08/29/2020 06:11:13 08/29/19 21 08/29/2020 urina lysis , dipst ick bilirubin NEGATI VE negati ve Not Available [facility] ([facility]) [address] [place], [address], 08/29/2020 06:11:13 08/29/19 21 08/29/2020 urina lysis , dipst ick urobilinogen ,semi-qn 0.2 mg/dL 0.2-1. 0 Not Available [facility] ([facility]) [address] [place], [address], 08/29/2020 06:11:13 08/29/19 21 08/29/2020 urina lysis , dipst ick nitrite, urine NEGATI VE negati ve Not Available [facility] ([facility]) [address] [place], [address], 08/29/2020 06:11:13 08/29/19 21 08/29/2020 urina lysis , dipst ick microscopic examination SEE BELOW: Micro scopi c was indic ated and was perfo rmed. Not Available [facility] ([facility]) [address] [place], [address], 08/29/2020 06:11:13 08/29/19 21 08/29/2020 urina lysis , dipst ick WBC NONE SEEN /hpf 0 - 5 Not Available [facility] ([facility]) [address] [facility], [place], [address], 08/29/2020 06:11:13 08/29/1908/29/2020 urina lysis , dipst ick RBC 3-10 /hpf 0 - 2 abnormal Not Available [facility] ([facility]) [address] [facility], [place], [address], 08/29/2020 06:11:13 08/29/19 21 08/29/2020 urina lysis , dipst ick epithelial cells (non renal) >10 /hpf 0 - 10 abnormal Not Available [facility] ([facility]) [address] [facility], [place], [address], 08/29/2020 06:11:13 08/29/1908/29/2020 urina lysis , dipst ick epithelial cells (renal) [employer] Not Available [facility] ([facility]) [address] [facility], [place], [address], 08/29/2020 06:11:13 08/29/1908/29/2020 urina lysis , dipst ick casts NONE SEEN /lpf none seen Not Available [facility] ([facility]) [address] [facility], [place], [address], 08/29/2020 06:11:13 08/29/1908/29/2020 urina lysis , dipst ick cast type [employer] Not Available [facility] ([facility]) [address] [facility], [place], [address], 08/29/2020 06:11:13 08/29/1908/29/2020 urina lysis , dipst ick crystals [employer] Not Available [facility] ([facility]) [address] [facility], [place], [address], 08/29/2020 06:11:13 08/29/1908/29/2020 urina lysis , dipst ick crystal type [employer] Not Available [facility] ([facility]) [address] [facility], [place], [address], 08/29/2020 06:11:13 08/29/19 21 08/29/2020 urina lysis , dipst ick mucus threads [employer] Not Available [facility] ([facility]) [address] [facility], [place], [address], 08/29/2020 06:11:13 08/29/19 21 08/29/2020 urina lysis , dipst ick bacteria FEW none seen/f ew Not Available [facility] ([facility]) [address] [facility], [place], [address], 08/29/2020 06:11:13 08/29/19 21 08/29/2020 urina lysis , dipst ick yeast [employer] Not Available [facility] ([facility]) [address] [facility], [place], [address], 08/29/2020 06:11:13 08/29/19 21 08/29/2020 urina lysis , dipst ick trichomonas [employer] Not Available [facility] ([facility]) [address] [facility], [place], [address], 08/29/2020 06:11:13 08/29/19 21 08/29/2020 urina lysis , dipst ick comment [employer] Not Available [facility] ([facility]) [address] [place], [address], 08/29/2020 06:11:13 08/29/19 21 08/29/2020 lipid panel , serum cholesterol, total 183 mg/dL 100-19 9 Not Available [facility] ([facility]) [address] [facility], [place], [address], 08/29/2020 06:11:14 08/29/19 21 08/29/2020 lipid panel , serum triglyceride s 80 mg/dL 0-149 Not Available [facility] ([facility]) [address] [place], [address], 08/29/2020 06:11:14 08/29/19 21 08/29/2020 lipid panel , serum HDL cholesterol 67 mg/dL >39 Not Available [facility] ([facility]) [address] [place], [address], 08/29/2020 06:11:14 08/29/19 21 08/29/2020 lipid panel , serum VLDL cholesterol bee 15 mg/dL 5-40 Not Available [facility] ([facility]) [address] [place], [address], 08/29/2020 06:11:14 08/29/19 21 08/29/2020 lipid panel , serum LDL [facility] 101 mg/dL 0-99 above high normal Not Available [facility] ([facility]) [address] [place], [address], 08/29/2020 06:11:14 08/29/1908/29/2020 lipid panel , serum comment: [employer] Not Available [facility] ([facility]) [address] [place], [address], 08/29/2020 06:11:14 09/07/1909/07/2020 urina lysis compl ete, refle x cultu re specific gravity 1.024 1.005- 1.030 Not Available [facility] ([facility]) [address] [place], [address], 09/08/2020 09:20:42 09/07/1909/07/2020 urina lysis compl ete, refle x cultu re pH 5.5 5.0-7. 5 Not Available [facility] ([facility]) [address] [place], [address], 09/08/2020 09:20:42 09/07/19 21 09/07/2020 urina lysis compl ete, refle x cultu re urine-color Yellow yellow Not Available [facility] ([facility]) [address] [place], [address], 09/08/2020 09:20:42 09/07/19 21 09/07/2020 urina lysis compl ete, refle x cultu re appearance Clear clear Not Available [facility] ([facility]) [address] [place], [address], 09/08/2020 09:20:42 09/07/19 21 09/07/2020 urina lysis compl ete, refle x cultu re WBC esterase Trace negati ve abnormal Not Available [facility] ([facility]) [address] [place], [address], 09/08/2020 09:20:42 09/07/19 21 09/07/2020 urina lysis compl ete, refle x cultu re protein 2+ negati ve/tra ce abnormal Not Available [facility] ([facility]) [address] [place], [address], 09/08/2020 09:20:42 09/07/19 21 09/07/2020 urina lysis compl ete, refle x cultu re glucose Negati ve negati ve Not Available [facility] ([facility]) [address] [place], [address], 09/08/2020 09:20:42 09/07/19 21 09/07/2020 urina lysis compl ete, refle x cultu re ketones Negati ve negati ve Not Available [facility] ([facility]) [address] [place], [address], 09/08/2020 09:20:42 09/07/19 21 09/07/2020 urina lysis compl ete, refle x cultu re occult blood Trace negati ve abnormal Not Available [facility] ([facility]) [address] [place], [address], 09/08/2020 09:20:42 09/07/19 21 09/07/2020 urina lysis compl ete, refle x cultu re bilirubin Negati ve negati ve Not Available [facility] ([facility]) [address] [place], [address], 09/08/2020 09:20:42 09/07/19 21 09/07/2020 urina lysis compl ete, refle x cultu re urobilinogen ,semi-qn 0.2 mg/dL 0.2-1. 0 Not Available [facility] ([facility]) [address] [facility], [place], [address], 09/08/2020 09:20:42 09/07/19 21 09/07/2020 urina lysis compl ete, refle x cultu re nitrite, urine Negati ve negati ve Not Available [facility] ([facility]) [address] [place], [address], 09/08/2020 09:20:42 09/07/19 21 09/07/2020 urina lysis compl ete, refle x cultu re microscopic examination See below: Micro scopi c was indic ated and was perfo rmed. Not Available [facility] ([facility]) [address] [place], [address], 09/08/2020 09:20:42 09/07/19 21 09/07/2020 urina lysis compl ete, refle x cultu re WBC 0-5 /hpf 0 - 5 Not Available [facility] ([facility]) [address] [place], [address], 09/08/2020 09:20:42 09/07/19 21 09/07/2020 urina lysis compl ete, refle x cultu re RBC 3-10 /hpf 0 - 2 abnormal Not Available [facility] ([facility]) [address] [facility], [place], [address], 09/08/2020 09:20:42 09/07/19 21 09/07/2020 urina lysis compl ete, refle x cultu re epithelial cells (non renal) >10 /hpf 0 - 10 abnormal Not Available [facility] ([facility]) [address] [facility], [place], [address], 09/08/2020 09:20:42 09/07/19 21 09/07/2020 urina lysis compl ete, refle x cultu re epithelial cells (renal) [employer] Not Available [facility] ([facility]) [address] [facility], [place], [address], 09/08/2020 09:20:42 09/07/19 21 09/07/2020 urina lysis compl ete, refle x cultu re casts None seen /lpf none seen Not Available [facility] ([facility]) [address] [facility], [place], [address], 09/08/2020 09:20:42 09/07/19 21 09/07/2020 urina lysis compl ete, refle x cultu re cast type [employer] Not Available [facility] ([facility]) [address] [place], [address], 09/08/2020 09:20:42 09/07/19 21 09/07/2020 urina lysis compl ete, refle x cultu re crystals [employer] Not Available [facility] ([facility]) [address] [place], [address], 09/08/2020 09:20:42 09/07/19 21 09/07/2020 urina lysis compl ete, refle x cultu re crystal type [employer] Not Available [facility] ([facility]) [address] [place], [address], 09/08/2020 09:20:42 09/07/19 21 09/07/2020 urina lysis compl ete, refle x cultu re mucus threads [employer] Not Available [facility] ([facility]) [address] [place], [address], 09/08/2020 09:20:42 09/07/19 21 09/07/2020 urina lysis compl ete, refle x cultu re bacteria Many none seen/f ew abnormal Not Available [facility] ([facility]) [address] [place], [address], 09/08/2020 09:20:42 09/07/19 21 09/07/2020 urina lysis compl ete, refle x cultu re yeast [employer] Not Available [facility] ([facility]) [address] [place], [address], 09/08/2020 09:20:42 09/07/19 21 09/07/2020 urina lysis compl ete, refle x cultu re trichomonas [employer] Not Available [facility] ([facility]) [address] [place], [address], 09/08/2020 09:20:42 09/07/19 21 09/07/2020 urina lysis compl ete, refle x cultu re comment [employer] Not Available [facility] ([facility]) [address] [place], [address], 09/08/2020 09:20:42 09/07/19 21 09/07/2020 urina lysis compl ete, refle x cultu re urinalysis reflex Commen t This speci men has refle xed to a Urine Cultu re. Not Available [facility] ([facility]) [address] [place], [address], 09/08/2020 09:20:42 09/07/19 21 09/08/2020 urina lysis compl ete, refle x cultu re urine culture, routine Final report Not Available [facility] ([facility]) [address] [facility], [place], [address], 09/08/2020 09:20:42 09/07/19 21 09/08/2020 urina lysis compl ete, refle x cultu re result 1 Lactob acillu s specie s 25,00 0-50, 000 colon y formi ng units per mL Susce ptibi lity not maryjo lly perfo rmed on this organ ism. Not Available [facility] ([facility]) [address] [facility], [place], [address], 09/08/2020 09:20:42 02/13/20 21 02/14/2021 IGP, APTIM A HPV diagnosis: Deborah ROCA FOR INTRA EPITH ELIAL MICHAEL N OR KAYLA REYES . Not Available [facility] ([facility]) [address] [facility], [place], [address], 02/14/2021 16:11:48 02/13/2002/14/2021 IGP, APTIM A HPV specimen adequacy: Deborah t Satis facto ry for evalu ation . Endoc ervic al and/o r squam ous metap lasti c cells (endo cervi bee compo nent) are prese nt. Not Available [facility] ([facility]) [address] [facility], [place], [address], 02/14/2021 16:11:48 02/13/20 21 02/14/2021 IGP, APTIM A HPV clinician provided ICD10: Deborah t Z20.2 Z01.4 19 Z11.5 1 Z11.3 Not Available [facility] ([facility]) [address] [facility], [place], [address], 02/14/2021 16:11:48 02/13/20 21 02/14/2021 IGP, APTIM A HPV performed by: Deborah t Beata [place] s, Cytot echno reynold t (ASCP ) Not Available [facility] ([facility]) [address] [facility], [place], [address], 02/14/2021 16:11:48 02/13/20 21 02/14/2021 IGP, APTIM A HPV . . Not Available [facility] ([facility]) [address] [facility], [place], [address], 02/14/2021 16:11:48 02/13/20 21 02/14/2021 IGP, APTIM A HPV note: Commlibby t The Pap smear is a scree shahram test desig jace to aid in the detec tion of vane ligna nt and malig nant condi tions of the uteri ne cervi x. It is not a diagn ostic proce dure and shoul d not be used as the sole means of detec ting cervi bee cance r. Both false -posi tive and false -nega tive repor ts do occur . Not Available [facility] ([facility]) [address] [facility], [place], [address], 02/14/2021 16:11:48 02/13/20 21 02/14/2021 IGP, APTIM A HPV test methodology: Deborah t This liqui d based ThinP rep(R ) pap test was scree jace with the use of an image guide pia systiris m. Not Available [facility] ([facility]) [address] [facility], [place], [address], 02/14/2021 16:11:48 02/13/20 21 02/14/2021 IGP, APTIM A HPV HPV aptima Negati ve negati ve This nucle ic acid ampli ficat ion test detec ts fourt een high- risk HPV types (16,1 8,31, 33,35 ,39,4 5,51, 52,56 ,58,5 9,66, 68) witho ut diffe renti ation . Not Available [facility] ([facility]) [address] [facility], [place], [address], 02/14/2021 16:11:48 02/13/2002/13/2021 NUSWA B VG+, HSV atopobium vaginae Low - 0 score Not Available [facility] ([facility]) [address] [facility], [place], [address], 02/20/2021 03:07:08 02/13/2002/13/2021 NUSWA B VG+, HSV bvab 2 Low - 0 score Not Available [facility] ([facility]) [address] [facility], [place], [address], 02/20/2021 03:07:08 02/13/2002/13/2021 NUA B VG+, HSV megasphaera 1 Low - 0 score Calcu late total score by mari elizabeth the 3 indiv idual bacte rial vagin osis (BV) marke r score s toget her. Total score is inter prete d as follo ws: Total score 0-1: Indic ates the absen ce of BV. Total score 2: Indet ermin ate for BV. Addit ional clini bee data shoul d be evalu ated to estab malachi a diagn osis. Total score 3-6: Indic ates the prese nce of BV. This test was devel oped and its perfo rmanc e roxy cteri stics deter mined by [facility]. It has not been clear ed or appro porfirio by the Food and Drug Admin istra tion. Not Available [facility] ([facility]) [address] [facility], [place], [address], 02/20/2021 03:07:08 02/13/2002/13/2021 NUSWA B VG+, HSV yas albicans, DEADNRA Negati ve negati ve Not Available [facility] ([facility]) [address] [facility], [place], [address], 02/20/2021 03:07:08 02/13/20 21 02/13/2021 NUSWA B VG+, HSV yas glabrata, DEANDRA Negati ve negati ve Not Available [facility] ([facility]) [address] [facility], [place], [address], 02/20/2021 03:07:08 02/13/2002/14/2021 NUSWA B VG+, HSV trich vag by DEANDRA Negati ve negati ve Not Available [facility] ([facility]) [address] [facility], [place], [address], 02/20/2021 03:07:08 02/13/2002/14/2021 NUSWA B VG+, HSV chlamydia trachomatis, DEANDRA Negati ve negati ve Not Available [facility] ([facility]) [address] [facility], [place], [address], 02/20/2021 03:07:08 02/13/2002/14/2021 NUSWA B VG+, HSV neisseria gonorrhoeae, DEANDRA Negati ve negati ve Not Available [facility] ([facility]) [address] [facility], [place], [address], 02/20/2021 03:07:08 02/13/2002/20/2021 NUSWA B VG+, HSV hsv 1 DEANDRA Negati ve negati ve Not Available [facility] ([facility]) [address] [facility], [place], [address], 02/20/2021 03:07:08 02/13/2002/20/2021 NUSWA B VG+, HSV hsv 2 DEANDRA Negati ve negati ve Not Available [facility] ([facility]) [address] [place], [address], 02/20/2021 03:07:08 02/13/2002/14/2021 STREP GP B DEANDRA strep gp B DEANDRA Positi ve negati ve abnormal Cente rs for Disea se Contr ol and Preve ntion (CDC) and Ameri can Congr ess of Obste trici ans and Gynec ologi sts (ACOG ) guide lines for preve ntion of perin atal group B strep tococ bee (GBS) disea se speci fy co-co llect ion of a vagin al and recta l swab speci men to maxim ize sensi tivit y of GBS detec tion. Per the CDC and ACOG, swabb ing both the lower vagin a and rectu m subst antia lly incre ases the yield of detec tion juventino red with sampl ing the vagin a alone . Penic illin G, ampic illin , or cefaz oralia are indic ated for intra partu m proph ylaxi s of perin atal GBS colon izati on. Refle x susce ptibi lity testi ng shoul d be perfo rmed prior to use of clind amyci n only on GBS isola diogo from penic illin -benedcit rgic women who are consi dered a high risk for anaph ylaxi s. Treat ment with vanco mycin witho ut addit ional testi ng is warra nted if resis tance to clind amyci n is noted . Not Available [facility] ([facility]) [address] [place], [address], 02/20/2021 03:07:09 04/11/20 21 04/12/2021 CBC, PLATE LET, NO DIFFE RENTI AL WBC 11.4 x10e3 /uL 3.4-10 .8 above high normal Not Available [facility] ([facility]) [address] [place], [address], 04/12/2021 08:22:09 04/11/20 21 04/12/2021 CBC, PLATE LET, NO DIFFE RENTI AL RBC 3.79 x10e6 /uL 3.77-5 .28 Not Available [facility] ([facility]) [address] [place], [address], 04/12/2021 08:22:09 04/11/20 21 04/12/2021 CBC, PLATE LET, NO DIFFE RENTI AL hemoglobin 11.0 g/dL 11.1-1 5.9 below low normal Not Available [facility] ([facility]) [address] [place], [address], 04/12/2021 08:22:09 04/11/2004/12/2021 CBC, PLATE LET, NO DIFFE RENTI AL hematocrit 33.7 % 34.0-4 6.6 below low normal Not Available [facility] ([facility]) [address] [facility], [place], [address], 04/12/2021 08:22:09 04/11/2004/12/2021 CBC, PLATE LET, NO DIFFE RENTI AL MCV 89 fL 79-97 Not Available [facility] ([facility]) [address] [facility], [place], [address], 04/12/2021 08:22:09 04/11/2004/12/2021 CBC, PLATE LET, NO DIFFE RENTI AL MCH 29.0 pg 26.6-3 3.0 Not Available [facility] ([facility]) [address] [facility], [place], [address], 04/12/2021 08:22:09 04/11/2004/12/2021 CBC, PLATE LET, NO DIFFE RENTI AL MCHC 32.6 g/dL 31.5-3 5.7 Not Available [facility] ([facility]) [address] [place], [address], 04/12/2021 08:22:09 04/11/2004/12/2021 CBC, PLATE LET, NO DIFFE RENTI AL RDW 12.9 % 11.7-1 5.4 Not Available [facility] ([facility]) [address] [place], [address], 04/12/2021 08:22:09 12/08/20 21 04/12/2021 CBC, PLATE LET, NO DIFFE RENTI AL platelets 322 x10e3 /uL 150-45 0 Not Available [facility] ([facility]) [address] [facility], [place], [address], 04/12/2021 08:22:09 04/11/20 21 04/12/2021 CBC, PLATE LET, NO DIFFE RENTI AL NRBC [employer] Not Available [facility] ([facility]) [address] [facility], [place], [address], 04/12/2021 08:22:09 04/11/20 21 04/12/2021 LIPID PANEL WITH LDL/H DL RATIO cholesterol, total 152 mg/dL 100-19 9 Not Available [facility] ([facility]) [address] [facility], [place], [address], 04/12/2021 08:22:10 04/11/20 21 04/12/2021 LIPID PANEL WITH LDL/H DL RATIO triglyceride s 68 mg/dL 0-149 Not Available [facility] ([facility]) [address] [facility], [place], [address], 04/12/2021 08:22:10 04/11/20 21 04/12/2021 LIPID PANEL WITH LDL/H DL RATIO HDL cholesterol 56 mg/dL >39 Not Available [facility] ([facility]) [address] [facility], [place], [address], 04/12/2021 08:22:10 04/11/20 21 04/12/2021 LIPID PANEL WITH LDL/H DL RATIO VLDL cholesterol bee 13 mg/dL 5-40 Not Available [facility] ([facility]) [address] [place], [address], 04/12/2021 08:22:10 04/11/20 21 04/12/2021 LIPID PANEL WITH LDL/H DL RATIO LDL chol calc [facility]) 83 mg/dL 0-99 Not Available [facility] ([facility]) [address] [place], [address], 04/12/2021 08:22:10 04/11/20 21 04/12/2021 LIPID PANEL WITH LDL/H DL RATIO comment: [employer] Not Available [facility] ([facility]) [address] [facility], [place], [address], 04/12/2021 08:22:10 04/11/20 21 04/12/2021 LIPID PANEL WITH LDL/H DL RATIO LDL/HDL ratio 1.5 ratio 0.0-3. 2 LDL/H DL Ratio Men Women 1/2 Avg.R isk 1.0 1.5 Avg.R isk 3.6 3.2 2X Avg.R isk 6.2 5.0 3X Avg.R isk 8.0 6.1 Not Available [facility] ([facility]) [address] [place], [address], 04/12/2021 08:22:10 04/11/20 21 04/12/2021 HEPAT ITIS PANEL (4) hep A Ab, IgM Negati ve negati ve Not Available [facility] ([facility]) [address] [place], [address], 04/12/2021 08:22:11 04/11/20 21 04/12/2021 HEPAT ITIS PANEL (4) HBsAg screen Negati ve negati ve Not Available [facility] ([facility]) [address] [place], [address], 04/12/2021 08:22:11 04/11/20 21 04/12/2021 HEPAT ITIS PANEL (4) hep B core Ab, IgM Negati ve negati ve Not Available [facility] ([facility]) [address] [place], [address], 04/12/2021 08:22:11 04/11/20 21 04/12/2021 HEPAT ITIS PANEL (4) hep C virus Ab 0.1 s/co_ ratio 0.0-0. 9 Negat ld: < 0.8 Indet ermin ate: 0.8 - 0.9 Posit ld: > 0.9 The CDC recom mends that a posit ld HCV antib herbert resul t be follo wed up with a HCV Nucle ic Acid Ampli ficat ion test (5507 13). Not Available [facility] ([facility]) [address] [facility], [place], [address], 04/12/2021 08:22:11 04/11/20 21 04/12/2021 HEMOG LOBIN A1C hemoglobin A1C 5.9 % 4.8-5. 6 above high normal Predi abete s: 5.7 - 6.4 Diabe diogo: >6.4 Glyce vamsi contr ol for adult s with diabe diogo: <7.0 Not Available [facility] ([facility]) [address] [facility], [place], [address], 04/12/2021 08:22:12 04/11/2004/12/2021 TSH TSH 0.782 uIU/m L 0.450- 4.500 Not Available [facility] ([facility]) [address] [place], [address], 04/12/2021 08:22:12 04/11/2004/12/2021 HEP B SURFA CE AB hep B surface Ab, qual Reacti ve Non React ld: Incon siste nt with immun ity, less than 10 mIU/m L React ld: Consi stent with immun ity, great er than 9.9 mIU/m L Not Available [facility] ([facility]) [address] [place], [address], 04/12/2021 08:22:13 04/11/2004/12/2021 RPR, RFX QN RPR/C ONFIR M TP RPR Non Reacti ve non reacti ve Not Available [facility] ([facility]) [address] [place], [address], 04/12/2021 08:22:13 04/11/20 21 04/12/2021 HIV AG/AB WITH REFLE X HIV screen 4TH generation wrfx Non Reacti ve non reacti ve Not Available [facility] ([facility]) [address] [facility], [place], [address], 04/12/2021 08:22:14 04/11/20 21 04/12/2021 HSV-2 TYPE SPEC AB, IGG W/RFL X hsv 2 IgG, type spec <0.91 index 0.00-0 .90 Negat ld <0.91 Equiv ocal 0.91 - 1.09 Posit ld >1.09 Note: Negat ld indic ates no antib odies detec ana to HSV-2 . Equiv ocal may sugge st early infec tion. If clini gonzales appro priat e, retes t at later date. Posit ld indic ates antib odies detec ana to HSV-2 . Not Available [facility] ([facility]) [address], [place], [address], 04/12/2021 08:22:15 09/01/19 21 08/31/2020 US, pelvi s compl ete No observ ation record ed. [facility] (One Call Scheduling) [address] [place], [address], 09/06/2020 11:56:26 02/27/20 21 02/26/2021 MAMMO , diagn ostic , digit al, bilat eral No observ ation record ed. [facility] (Mammography) [address], [place], [address], 03/14/2021 10:59:36 05/09/19 22 05/08/2021 US, pebbles wan terjose No observ ation record ed. [facility] [address], [place], [address], 06/22/2021 10:25:57 Result Notes None recorded. Problems Name Problem SNOMED Code Status Onset Date Resolution Date Notes Provider Name and Address Organization Details Recorded Time Bacterial vaginosis 899127579 Active 2016 Ry palacios, [place] - [facility] 7 11:16:23 Past history of gestation al diabetes mellitus 904963282 Active 2017 Andra Walters MD Attn: Kimnancy elizabeth,[address] [place], [address], [place] [facility] 8 15:03:03 Influenza vaccinati on declined 146860141 Active 2017 Andra Walters MD Attn: Accountin g,[address] [place], [address], [place] [facility] 8 15:47:59 Genital herpes simplex 93924490 Active 2018 Ry palacios, [place] - [facility] 9 20:20:12 Pelvic mass 50860408 Active 2020 Andra Walters MD Attn: Alistair g,[address] [place], [address], [place] [facility] 1 11:54:48 Hyperchol esterolem ia 82345111 Active 2020 Andra Walters MD Attn: Kimnancy g,[address] [place], [address], [place] - [facility] 1 11:57:00 Mammograp hy assessmen t (Category 0) - Need additiona l imaging evaluatio n 012332715 Active 2020 Ry palacios, [place] - [facility] 1 14:29:23 Vaginitis 28187815 Active Donita [place], [place] - [facility] 8 10:20:23 Premature delivery 005452634 Active 2 times Saurav Dasilva MD Attn: Accountnancy g,[address] [place], [address], [place] [facility] 5 16:36:45 Vaginitis 81704577 Completed Donita palacios, [place] - [facility] 8 10:20:23 Candidias is of vagina 86212382 Active 2016 Debby Buckley MA null, [facility] 7 13:26:05 Group B Streptoco ccus carrier 244326960506 3 Active 2016 Debby Buckley MA null, [facility] 7 13:27:16 Problem Notes None recorded. Procedures Surgical History Date Name Laterality Status Provider Name and Address Organization Details Recorded Time Date of Last Pap Smear completed Flor Bey MA [facility] 02/12/2021 12:38:48 9 Control Implant Removal completed Ry Martinez [facility] 10/07/2018 11:08:49 0 Caesarean Section completed Debby Buckley MA [facility] 02/20/2017 12:11:48 Imaging Results Imaging Date Name Status LastModified by Organiz ation Details LastModified Time 08/31/2020 US, pelvis, complete completed [facility] (One Call Scheduling) [address] [place], [address], 09/06/2020 11:56:26 02/26/2021 MAMMO, diagnostic, digital, bilateral completed [facility] (Mammography) [address], [place], [address], 03/14/2021 10:59:36 05/08/2021 US, breast, unilateral completed [facility] [address], [place], [address], 06/22/2021 10:25:57 Procedure Notes None recorded. Medical Equipment None Reported. Allergies No known drug allergies Medications Name Sig Start Date Stop Date Status Note LastModified by Organization Details LastModified Time multivitami n tablet Take 1 tablet every day by oral route. 2020 active Not Available Not Available Not Avai lable amoxicillin 500 mg capsule 02/04 completed Not Available Not Available Not Available acetaminoph en 325 mg tablet 06/28 completed Not Available Not Available Not Available prednisolon e sodium phosphate 15 mg/5 mL (3 mg/mL) oral solution 10/07 completed Not Available Not Available Not Available albuterol sulfate 2.5 mg/3 mL (0.083 %) solution for nebulizatio n 02/04 completed Not Available Not Available Not Available acetaminoph en 160 mg/5 mL oral liquid 02/20 completed Not Available Not Available Not Available polyethylen e glycol 3350 17 gram oral powder packet 02/20 completed Not Available Not Available Not Available cetirizine 10 mg tablet 06/28 completed Not Available Not Available Not Available Tab-A-Olivia tablet 08/25 completed Not Available Not Available Not Available azithromyci n 250 mg tablet 02/20 completed Not Available Not Available Not Available ibuprofen 800 mg tablet Take 1 tablet 3 times a day by oral route. 08/25 completed Not Available Not Available Not Available Lidocaine Viscous 2 % mucosal solution 10/07 completed Not Available Not Available Not Available fluconazole 150 mg tablet TAKE 1 TABLET BY MOUTH A ONE TIME DOSE 08/25 completed Not Available Not Available Not Available FreeStyle Lancets 28 gauge 02/20 completed Not Available Not Available Not Available phenazopyri dine 200 mg tablet 02/20 completed Not Available Not Available Not Available metronidazo le 0.75 % (37.5 mg/5 gram) vaginal gel INSERT 1 APPLICATO RFUL VAGINALLY AT BEDTIME FOR 5 DAYS active Not Available Not Available No t Available Tubersol 5 tub. unit/0.1 mL intradermal injection solution Inject 0.1 mL by intraderm al route as directed for 1 day. 03/25 completed Not Available Not Available Not Available Doc-Q-Lace 100 mg capsule 02/20 completed Not Available Not Available Not Available penicillin V potassium 500 mg tablet Take 1 tablet twice a day by oral route for 10 days. active Not Available Not Available No t Available metronidazo le 500 mg tablet Take 1 tablet every 12 hours by oral route for 7 days. 03/25 completed Not Available Not Available Not Available sulfamethox azole 800 mg-trimetho prim 160 mg tablet 02/20 completed Not Available Not Available Not Available Condoms-Pre m Lubricated Take 1 device by miscell. route. 06/28 completed Not Available Not Available Not Available acyclovir 800 mg tablet TAKE 1 TABLET BY MOUTH ONCE DAILY active Not Available Not Available No t Available guaifenesin 200 mg tablet 06/28 completed Not Available Not Available Not Available famotidine 20 mg tablet TAKE 1 TABLET BY MOUTH TWICE DAILY active Not Available Not Available No t Available oseltamivir 75 mg capsule 02/20 completed Not Available Not Available Not Available nystatin 100,000 unit/gram topical cream 02/20 completed Not Available Not Available Not Available hydrocortis one 2.5 % topical cream 07/14 completed Not Available Not Available Not Available ibuprofen 600 mg tablet TAKE 1 TABLET BY MOUTH 4 TIMES DAILY NEEDED active Not Available Not Available No t Available methylpredn isolone 4 mg tablets in a dose pack Take as drected 07/06 completed Not Available Not Available Not Available ibuprofen 100 mg/5 mL oral suspension 02/20 completed Not Available Not Available Not Available albuterol sulfate HFA 90 mcg/actuati on aerosol inhaler INHALE 2 PUFFS BY MOUTH 4 TIMES DAILY active Not Available Not Available No t Available ondansetron 4 mg disintegrat ing tablet 06/28 completed Not Available Not Available Not Available fluticasone propionate 50 mcg/actuati on nasal spray,suspe nsion USE 1 SPRAY(S) IN EACH NOSTRIL TWICE DAILY active Not Available Not Available No t Available loratadine 10 mg tablet TAKE 1 TABLET BY MOUTH ONCE DAILY NEEDED active Not Available Not Available No t Available naproxen 500 mg tablet 10/07 completed Not Available Not Available Not Available amoxicillin 875 mg-potassiu m clavulanate 125 mg tablet 06/28 completed Not Available Not Available Not Available neomycin 3.5 mg/g-polymy gabbie B 10,000 unit/g-dexa meth 0.1 % eye oint 06/28 completed Not Available Not Available Not Available hydroxyprog esterone caproate (bulk) 100 % powder 02/20 completed Not Available Not Available Not Available multivitami n chewable tablet Take by oral route. 07/14 completed Not Available Not Available Not Available Benadryl 10/07 completed Not Available Not Available Not Available FreeStyle Lite Strips 02/20 completed Not Available Not Available Not Available Calcium with Vitamin D 600 mg-10 mcg (400 unit) tablet Take 1 tablet twice a day by oral route. 2020 active Not Available Not Available Not Avai lable ferrous sulfate 15 mg iron (75 mg)/mL oral drops 02/20 completed Not Available Not Available Not Available D-Vi-Trinh 10 mcg/mL (400 unit/mL) oral drops 02/20 completed Not Available Not Available Not Available 28 mg iron-800 mcg tablet Take 1 tablet every day by oral route for 30 days. 02/20 completed Not Available Not Available Not Available calcium 600 mg (as carbonate)- vitamin D3 20 mcg (800 unit) tablet Take 1 tablet twice a day by oral route for 30 days. 01/07 completed Not Available Not Available Not Available Aerochamber Plus Flow-Vu,Sma ll Mask 01/07 completed Not Available Not Available Not Available Alive Women's Gummy Vitamin (with choline) 200 mcg-37.5 mg chew tablet Take 1 tablet every day by oral route. 01/07 completed Not Available Not Available Not Available Tab-A-Olivia 400 mcg tablet TAKE 1 TABLET BY MOUTH ONCE DAILY 08/25 completed Not Available Not Available Not Available Vitals Date Recorded Body height Body mass index (BMI) Body weight Provider Name and Address Organization Details Last Updated DateTime 06/28/2020 157.48 cm 30.2 kg/m2 49204.74 g Flor Bey [place] - [facility] 06/28/2020 11:32:29 Date Recorded Body height Body mass index (BMI) Body weight Heart rate Respiratory rate Body temperature Systolic blood pressure Diastolic blood pressure Provider Name and Address Organization Details Last Updated DateTime 1 157.48 cm 31.1 kg/m2 25987.7 g 80 /min 14 /min 98 [degF] 114 mm[Hg] 82 mm[Hg] Gillian Amaya [place] - [facility] 15:53:31 Date Recorded Body height Body mass index (BMI) Body weight Respiratory rate Heart rate Body temperature Systolic blood pressure Diastolic blood pressure Provider Name and Address Organization Details Last Updated DateTime 1 157.48 cm 30.7 kg/m2 73441.5 2 g 12 /min 76 /min 98 [degF] 116 mm[Hg] 80 mm[Hg] Gillian Amaya [place] [facility] 11:52:06 Date Recorded Body height Body mass index (BMI) Body weight Systolic blood pressure Diastolic blood pressure Provider Name and Address Organization Details Last Updated DateTime 02/12/2021 157.48 cm 30.7 kg/m2 34592.52 g 104 mm[Hg] 64 mm[Hg] Flor Bey [place] - [facility] 12:43:04 Social History Question Answer Notes LastModified by Organizat ion Details LastModified Time Tobacco Smoking Status Never Smoker Lilliam Martinez MA null, [place] - [facility] 10/18/2014 16:22:29 Do You Have An Advance Directive? No [email or web address] Information not available 02/20/2017 What Is Your Level Of Alcohol Consumption? None [email or web address] Information not available 02/20/2017 Are You Blind Or Do You Have Difficulty Seeing? No Information not available 08/25/2020 Is Blood Transfusion Acceptable In An Emergency? Yes [email or web address] Information not available 02/20/2017 What Is Your Level Of Caffeine Consumption? Moderate Tea Information not available 02/20/2017 How Much Tobacco Do You Chew? None [email or web address] Information not available 02/20/2017 In The 14 Days Before Symptom Onset, Have You Had Close Contact With A Laboratory-confir med COVID-19 While That Case Was Ill? No Information not available 08/25/2020 Have You Been To An Area Known To Be High Risk For COVID-19? Yes Information not available 08/25/2020 Are You Currently Employed? Yes [email or web address] Information not available 02/20/2017 Are You Deaf Or Do You Have Serious Difficulty Hearing? No Information not available 08/25/2020 What Type Of Diet Are You Following? REGULAR Information not available 02/20/2017 Which Illicit Or Recreational Drugs Have You Used? Denies [email or web address] Information not available 02/20/2017 Education 2 Year College Information not available 02/20/2017 What Is Your Occupation? [employer] [email or web address] Information not available 02/20/2017 Are There Any Guns Present In Your Home? No Information not available 08/25/2020 Live Alone Or With Others? With Others [email or web address] Information not available 02/20/2017 What Was The Date Of Your Most Recent Tobacco Screening? 09/06/2020 Information not available 09/06/2020 How Many Children Do You Have? 2 [email or web address] Information not available 02/20/2017 Performs Monthly Self-breast Exam? Yes [email or web address] Information no t available 02/20/2017 What Is Your Relationship Status? Single [email or web address] Information not available 02/20/2017 Do You Use Your Seat Belt Or Car Seat Routinely? Yes [email or web address] Information not available 06/28/2020 Seat Belts Used Routinely Yes [email or web address] Information not available 02/20/2017 Are You Sexually Active? Yes [email or web address] Information not available 02/20/2017 Do You Have Smoke And Carbon Monoxide Detectors In Your Home? Yes Information not available 08/25/2020 How Much Tobacco Do You Smoke? No [email or web address] Information not available 02/20/2017 General Stress Level Low [email or web address] Information not available 03/11/2017 Do You Use Any Illicit Or Recreational Drugs? No Information not available 08/25/2020 Do You Use Sunscreen Routinely? No [email or web address] Information not available 02/20/2017 Has Tobacco Cessation Counseling Been Provided? Yes Information not available 09/06/2020 On What Date Was Tobacco Cessation Counseling Provided? 09/06/2020 Information not available 09/06/2020 How Many Years Have You Smoked Tobacco? 0 Information not available 02/20/2017 Do You Or Have You Ever Used Any Other Forms Of Tobacco Or Nicotine? No Information not available 09/06/2020 Sex: Female Functional Status Question Answer Note LastModified by Organizat ion Details LastModified Time Are you able to care for yourself? Yes Information not available 08/25/2020 What is your exercise level? Occasional [email or web address] Information not available 02/20/2017 Mental Status None recorded. Family History Relationship Description Onset Age of this Age Resolved Age Notes LastModified by Organization Details LastModified Time Mother Hypertensive disorder Not available 02/20 12:09:42 Maternal Grandmother Hypertensive disorder [email or web address] Not available 02/20 12:09:42 Maternal Uncle Hypertensive disorder [email or web address] Not available 02/20 12:09:42 Maternal Aunt Hypertensive disorder [email or web address] Not available 02/20 12:09:42 Medical History Condition Response Coronary Artery Disease N Kidney Cyst N Blood Diseases N Hyperthyroidism N Blood disorders N Blood Transfusion N MRSA N Emphysema N Depression N COPD N Blood Clots N Pneumonia N Premature N Peripheral Arterial Disease N Edema N TIA N Headaches/Migraines N Anxiety Disorder N Obesity N Polyps N Infertility N Acid Reflux (GERD) N Hematuria N Stroke N Neck Injury N Polio N Hospital Admission other than N Neurologic Disorder N Other Sleep Disorders N Rheumatoid Arthritis N Fibromyalgia N Abdominal Aortic Aneurysm Repair N Kidney Disease N Heart Conditions N Heart Disease/Heart Problems N Hospitalizations N Brain Tumors N Acne N Skin Problems N Eating Disorder N Meningitis N Constipation N Tuberculosis N Cerebral Palsy N Myocardial Infarction N Asthma N Substance Abuse N Peripheral Vascular Disease N Vertigo N Sleep Disorder N Cirrhosis N Pulmonary Embolism N Chicken Pox N Hematologic Disease N Flomax Use Past or Present N Anxiety/Depression N Thyroid Disease N Colon Cancer N Lung Disease N Glaucoma N Developmental or Behavioral Disorders N Bipolar N Pacemaker N Diverticulitis/Diverticulosis N Orthopedic Problems N Anesthesia Complications N Orthotics N Head Injury/Concussion N Congenital Anomalies N Damon Bite N Chronic Kidney Disease N Endometriosis N Liver Disease N Schizophrenia N Dialysis N Speech Delay N Chronic Obstructive Pulmonary Disease N Parkinson's Disease N Thyroid Problems N GI Problems N Developmental Delay N Anemia N Multiple Sclerosis N Immune System Disorder N Colon Polyps N Heart Attack ([place]) N Diabetes N Cardiomyopathy N Blood Transfusions N Heart Problems/Murmur N Eye Trauma N Congestive Heart Failure (CHF) N Valvular Heart Disease N Hyperlipidemia N Double Vision N Abuse/Domestic Violence N Hepatitis B N Lupus N Epilepsy/Seizures N Reflux/GERD N Aneurysm N Heart Disease N Bronchitis N Pre-Eclampsia N Hypertension N Heart Failure N Other N Gout N High Blood Pressure N Atrial Fibrillation N Kidney Stones N Head Trauma/Injury N Congenital Heart Disease N Spine Problems N Gastrointestinal Disease N Lung Mass N Sinusitis N Obstructive Sleep Apnea N Muscle, Joint, or Bone Problems N Autoimmune disease N Vision or Eye Problems N Arthritis N Blood Clot N Cancer N Seasonal allergies N Leg or Foot Ulcers N Raynaud's Disease N Aortic Aneurysm N Arrhythmia N Headaches N Heart Problems N Ambloypia N Ear or Hearing Problems N Hyperparathyroidism N Migraines N Artificial Joints N Kidney or Bladder Problems N NSAID Use N Encephalitis N PTSD N Ulcers N Prostate Hypertrophy N Bleeding Disorder N AIDS/HIV N Urinary Tract Infection N Back Problems N Allergies N Atrial Flutter N GERD/Reflux N Hepatitis N Autism Spectrum Disorder (ASD) N Breast Cancer N Hernia N Hypothyroidism N Breast Problem N Genitourinary Disease N Deep Vein Thrombosis N Varicose Veins N Cystic Fibrosis N Hearing Loss N Developmental Problems N Carotid Disease N Vitamin D Deficiency N ADHD N Bladder or Kidney Problems N High Cholesterol N [place] N Valvular Abnormalities N Psychiatric/Mental Health Condition N Organ Transplant N Foot Deformity N Allergies/Hayfever N Dyslipidemia N Hyponatremia N Diabetic Eye Disease N Osteoporosis/Osteopenia N Back Pain N Proteinuria N Mental Illness N Neurological Problems N Ovarian Cancer N Bedwetting N Seizures/Epilepsy N Kidney Failure N Ocular trauma N Diverticulitis N Dementia N Sleep Apnea N Mental Problems N Warfarin Management N Osteoporosis N Gynecological History Statement/Question Response Abnormal Pap Y Flow Moderate Date of LMP 08/18/2020 STIs/STDs N HPV Vaccine Y Duration of Flow (days) 4 Age at Menarche 11 Current Control Method Condoms Age at First Child 18 Frequency of Cycle (Q days) 30 Sexually Active? Y Menses Monthly Y Date of Last Pap Smear 02/12/2021 Sexual Problems? N LMP Definite Desired Control Method Condoms Obstetrics History GPAL:G 3 P 0 2 1 2 Type Value Multiple Births 0 Full Term 0 Induced 0 Spontaneous 1 Premature 2 Living 2 Ectopics 0 Total 3 Immunizations Vaccine Type Date Status Note Provider Nam e and Address Organization Details Recorded Time Influenza, split virus, quadrivalent, preservative 7 completed Not Available [facility] 05/22/2019 02:45:30 HPV9 8 completed Not Available [facility] 05/22/2019 02:39:19 HPV9 8 completed Not Available [facility] 05/22/2019 02:49:08 Tdap 8 completed Not Available [facility] 05/22/2019 02:51:07 Hep A-Hep B 8 completed Not Available [facility] 05/22/2019 02:42:37 HPV9 8 completed Not Available [facility] 05/22/2019 02:36:23 Hep A-Hep B 8 completed Not Available [facility] 05/22/2019 02:47:53 Influenza, split virus, quadrivalent, preservative 5 completed Not Available [facility] 05/22/2019 02:40:54 Past Encounters Encounter ID Performer Location Encounter Start Date Encounter Closed Date Diagnosis/Indication Diagnosis SNOMED-CT Code Diagnosis ICD10 Code Diagnosis Note [id number] [facility] (BIOMATERIALS ENGINEER) [address] [place] [address] 10/18/2014 15:46:03 10/18/2014 17:36:07 Gynecologic examination 17531964 Vaginitis 62410726 [id number] [facility] (BIOMATERIALS ENGINEER) [address] [place] [address] 12/27/2014 15:36:43 12/27/2014 16:15:21 Vaginitis 82456032 Normal 96745789 [id number] [facility] (BIOMATERIALS ENGINEER) [address] [place] [address] 01/18/2015 14:05:57 01/18/2015 16:38:26 Normal [id number] Martin Maya [facility] (BIOMATERIALS ENGINEER) [address] [place] [address] 02/10/2015 15:57:22 02/10/2015 17:09:09 Normal 45480836 Z33.1 Vaginitis 13482366 N76.0 [id number] Martin Maya [facility] (BIOMATERIALS ENGINEER) [address] [place] [address] 03/03/2015 10:29:00 03/07/2015 13:52:29 High risk due to history of labor 172887003 O09.219 Gestation period, 15 weeks 7347094 Z3A.15 [id number] [facility] (BIOMATERIALS ENGINEER) [address] [place] [address] 02/20/2017 10:27:40 02/20/2017 13:51:17 Gynecologic examination 88859855 Z01.419 Z11.51 Exposure t o sexually transmissible disorder 063379565 Z20.2 Administra tion of influenza vaccine 49542096 Z23 Family andrea nning surveillance 890487257 Z30.09 currently [facility] ce of contraception 672627673 Z30.40 nexplanon in right arm palpable, full ROM, and without any neuromuscu lar abnormalit ies [id number] Ry Ruano (BIOMATERIALS ENGINEER) [address] [place] [address] 03/11/2017 15:09:31 03/12/2017 14:46:21 Bacterial vaginosis 821702350 N76.0 Exposure t o sexually transmissible disorder 768871955 Z20.2 [facility] nning surveillance 101249394 Z30.09 currently taking daily multivitam in [facility] [id number] Ry Ruano (BIOMATERIALS ENGINEER) [address] [place] [address] 07/14/2017 10:28:00 07/14/2017 11:49:36 Active or passive immunization 544038973 Z23 Fasciitis 88771051 M72.9 oblique - patient instructed to get up on opposite side of bed. [facility] nning surveillance 155570825 Z30.09 Surveillan ce of contraception 696163758 Z30.40 nexplanon in right arm palpable, full ROM, and without any neuromuscu lar abnormalit ies [id number] Ry Ruano (BIOMATERIALS ENGINEER) [address] [place] [address] 09/19/2017 11:31:32 09/19/2017 15:10:28 Active or passive immunization 157454935 Z23 [id number] MD Alden Amador (Adult Med) [address] [place] [address] 01/07/2018 14:22:34 01/07/2018 15:18:33 History and physical examination, school 76944272 Z02.0 Antibody measurement 352 7003 Z01.84 Administra tion of diphtheria, pertussis, and tetanus vaccine 611267003 Z23 Past pregn yomi history of gestational diabetes mellitus 825814646 Z86.32 Tuberculos is screening 884405116 Z11.1 Requires c ourse of hepatitis B vaccination 308955088 Z23 Requires a hepatitis A vaccination 951489377 Z28.3 Immunization refused 275 494858 Z28.20 She has refused the Influenza vaccine Visual impairment 778702 003 H54.7 Addendum [id number] Ry Ruano (BIOMATERIALS ENGINEER) [address] [place] [address] 02/04/2018 10:50:49 02/04/2018 13:57:15 Gynecologic examination 68473613 Z01.419 Z11.51 Exposure t o sexually transmissible disorder 222731375 Z20.2 Bacterial vaginosis 4197 38774 N76.0 Active or passive immunization 916593620 Z23 [id number] MD Alden Amador (Adult Med) [address] [place] [address] 02/05/2018 15:07:05 02/11/2018 11:56:51 Impaired fasting glycemia 773500849 R73.01 Tuberculos is screening 417132715 Z11.1 Requires a hepatitis A vaccination 805880821 Z28.3 Requires c ourse of hepatitis B vaccination 657870864 Z23 Influenza vaccination declined 301721530 Z28.21 [id number] SANDY Zayas (Adult Med) [address] [place] [address] 02/06/2018 14:55:55 02/09/2018 10:12:53 [id number] SANDY Singh (Adult Med) [address] [place] [address] 02/27/2018 14:27:29 03/02/2018 09:40:38 Tuberculosis screening 547102810 Z11.1 [id number] Ry Ruano (BIOMATERIALS ENGINEER) [address] [place] [address] 03/25/2018 15:21:36 03/27/2018 16:26:50 Exposure to sexually transmissible disorder 200277703 Z20.2 Subcutaneo us contraceptive implant palpable 839157509 Z30.46 Bacterial vaginosis [address] reptococcus carrier 9353524211 103 Z22.330 Candidiasis of vagina 72 732244 B37.3 Family andrea nning surveillance [id number] Z30.09 [id number] MD Alden Amador (Adult Med) [address] [place] [address] [id number] 0 05/12/2018 15:34:29 05/13/2018 08:48:46 Environmental allergy 140858830 T78.49XA Influenza vaccination declined 589328853 Z28.21 [id number] Ry Ruano (BIOMATERIALS ENGINEER) [address] [place] [address] [id number] 0 07/06/2018 14:47:52 07/06/2018 17:22:31 Gynecologic examination 27108899 Z01.419 Z11.51 Exposure t o sexually transmissible disorder 952400176 Z20.2 Bacterial vaginosis 4197 23969 N76.0 Candidiasis of vagina [address] reptococcus carrier [id number] 103 Z22.944 [id number] Ry Ruano (BIOMATERIALS ENGINEER) [address] [place] [address] [phone] 0 10/07/2018 10:13:34 10/09/2018 09:06:33 Removal of subcutaneous contraceptive done [id number] 48600 Z30.46 Risk of ex posure to communicable disease 242466996 Z20.9 Family andrea nning surveillance 925871591 Z30.09 [id number] Ry Ruano (BIOMATERIALS ENGINEER) [address] [place] [id number] 0 09/15/2019 09:12:52 09/16/2019 09:26:53 Bacterial vaginosis 223341823 N76.0 Genital he rpes simplex 38553016 A60.9 Candidiasis of vagina 72 410291 B37.3 Family andrea nning surveillance 727356325 Z30.09 [id number] SOFIA DING [address] [place] [address] 09/17/2019 11:09:59 09/20/2019 13:42:14 Suspected COVID-19 145661826 Z03.988 [id number] SOFIA Rahman [address] [place] [address] 01/04/2020 09:41:20 01/05/2020 13:57:48 Suspected COVID-19 299945458 Z03.818 D/w pt the current pandemic of COVID-19 and call for social isolation in order to blunt the curve and minimize risk and spread. Encouraged patient and family to take restrictio ns seriously. They have verbalized understand ing of such. Viral syndrome 344216272 B34.9 [id number] Ry Martinez Alden (BIOMATERIALS ENGINEER) [address] [place] [phone] 0 06/28/2020 07:56:02 07/03/2020 11:17:43 Family planning surveillance 000442861 Z30.09 Vaginitis 94583972 N76.0 odor Bacterial vaginosis [address] reptococcus carrier 2387720652 103 Z22.330 Genital he rpes simplex 52157673 A60.9 [id number] MD Alden Amador (Adult Med) [address] [place] [phone] 0 08/25/2020 15:43:18 08/28/2020 08:02:56 General examination of patient 439287859 Z00.01 Pelvic mass 75890011 R19 .00 Mass, right of midline above the Pfannensti el scar Stitch granuloma? Lipoma? US Vaccine de clined by patient [id number] 02 Z28.21 [id number] MD Alden Amador (Adult Med) [address] [place] [phone] 0 09/06/2020 11:46:42 09/07/2020 08:10:01 Pelvic mass 13587041 R19.00 Mass, right of midline above the Pfannensti el scar Stitch granuloma? The US from 08/31/2020 was abnormal but not diagnostic . The recommenda tion is that a repeat US be done in 6 months. However, she will be seen by the gynecologi st on 09/27/2020 Discussed in detail Hypercholesterolemia 136 14721 E78.00 Abnormal urinalysis 1672 32176 R82.90 Body mass index 30+ - obesity 763250373 Z68.30 [id number] Alden (BIOMATERIALS ENGINEER) [address] [place] [address] [phone] 0 02/12/2021 12:24:37 02/15/2021 14:09:39 Group B Streptococcus carrier 1361840689 103 Z22.330 Exposure t o sexually transmissible disorder 451189855 Z20.2 Gynecologi c examination 64673598 Z01.419 Z11.51 Screening for malignant neoplasm of breast 938783596 Z12.39 Fibroadeno ma of right breast 8770840263 601453 D24.1 patient complained of lump around menstrual cycle. Patient educated most likely fibroadeno ma but will ge mammogram to rule out malignancy . Venereal d isease screening 411989449 Z11.3 Fibroadeno ma of breast 367714610 D24.9 Health Concerns Section Related Observation LastModified by Organization Detai ls LastModified Time None Recorded Concern Status LastModified by Organization Details LastModified Time None Recorded Advance Directives Directive N: Payers Encounter Date Sequence Insurance Name Policy Number Policy Sparks Covered Member ID Sparks Member ID Guarantor Name 01/04/2020 1 [facility] PRIOR TO 11/02/2020 (MEDICAID REPLACEMENT - HMO) Sara Donaby [id number] Sara Donaby 06/28/2020 1 [facility] PRIOR TO 11/02/2020 (MEDICAID REPLACEMENT - HMO) Sara Donaby [id number] Sara Donaby 08/25/2020 1 [facility] PRIOR TO 11/02/2020 (MEDICAID REPLACEMENT - HMO) Sara Donaby [id number] Sara Donaby 09/06/2020 1 [facility] PRIOR TO 11/02/2020 (MEDICAID REPLACEMENT - HMO) Sara Donaby [id number] Sara Donaby 02/12/2021 1 [facility] ON OR AFTER 11/02/20 (MEDICAID REPLACEMENT - HMO) Sara Donaby [id number] Sara Donaby Notes Date Note Type Note Provider Name and Address Organization Details Recorded Time 01/04/2020 text/html COVID-19 Symptom s September 2019Reported bypatient.COVID-19 Signs and Symptomscough resolved; fever resolved; shortness of breath resolved; chills resolved; repeated shaking with chills resolved; muscle pain resolved; headache resolved; sore throat resolved; loss of taste or smell resolved; vomiting or diarrhea resolved; fatigue resolved; fatigue same; anorexia resolved Contacts and Exposureclose contact with a confirmed or suspected case of COVID-19; close proximity with person with COVID-19 Associated Symptoms:no sputum production; no wheezing; no runny nose; no vomiting; no diarrhea; no nausea; no change in mental status; no hypotension; no tachycardia;fatigue;b herbert aches 29 yo female ,spoke via phone with C/O, fatigue, chest pain, body aches,. exposed to pos COVID person. ADRIEL Encinas NP Attn: Accounting, 1 [facility], [place], [place], [address] [place] [address], [facility] 01/04/2020 12:01:03 06/28/2020 text/html 29yo F w ith h/o BV, candidiasis, HSV, GBS, DM presents via phone for vaginits. Ry palacios [facility] 06/29/2020 07:26:44 06/28/2020 text/html Vaginal/Vulvar ProblemReported bypatient.Location:[facility] Context:sexually active Associated Symptoms:vaginal irritation; vaginal discharge, yellow color with odor. Ry palacios [facility] 06/29/2020 07:26:44 08/25/2020 text/html I have a knot o n my stomach Months Ms Lamb returns with a knot that has increased in size in the last few months. No redness, pain or any other symptoms. Andra Walters MD Attn: Accounting[address] [place], [address], [facility] 08/25/2020 16:16:56 09/06/2020 text/html I had to do a f ollow up from the last time I was here Andra Walters MD Attn: Accounting[address] [place], [address], [facility] 09/06/2020 12:31:50 02/12/2021 text/html Annual GYNReport ed bypatient.History:no gynecologic complaints Menstrual cycle:Normal menses Urinary symptoms:No hematuria; No incontinence Vulva:No genital lesion Vagina:Normal vaginal discharge Breast:No breast pain; No breast lump; No nipple discharge; fibroadenoma Sexual complaints:No sexual complaints; No pain during intercourse; Normal libido Menopausal Symptoms:No menopausal symptoms; Normal vaginal lubrication Psychological symptoms:No depression; No anxiety; No PMDD Preventive measures:Encourage self breast examination; Encourage regular exercise; Encourage no tobacco use; Encourage regular mammograms starting age 40; Followed with Q3 year pap smear and high risk HPV typingNotes:Patient has not had COVID vaccine. Paul is a 30 yr old AAF, , who presents today for WWE Ry Martinez [facility] 02/12/2021 13:09:55 OBGyn Episode Ob Episode Information Episode Created Date Number of Fetuses Patient Bloodtype Patient rh Status Prepregnancy Weight lbs Domestic Partner Domestic Partner Phone Father Name [employer] Status 02/11/20 15 1 A Negative CLOSED Fetus Data First Name Last Name Admitted to NICU Weight (g) Sex Living Outcome Pediatric Complications Fetus ID Race Codes Race Delivery Type Jenaro Bryant false 2749.90 15 F Full Term [id number] 4-5 Black or Afric an Ameri can Problems Problem Notes Problem Name Start Date End Date Resolution Snomed Code Not e Vaginitis [id number] Michael Calculation Initial Micheal Date Initial Exam Date Initial Exam Provider Initial Ultrasound Date Last Menstrual Period Date Ultra Sound Weeks Gestation 08/25/2015 02/10/2015 [email or web address] 01/23/2015 11/18/2014 9 Eighteen To Twenty Week Michael Update Ultra Sound Date Fundal Height At Umbil Quickening Date Ultra Sound Latest Weeks Gestation Final Michael Confirmed By Final Michael Confirmed Date Final Michael Date Ultra Sound Latest Days Gestation 01/24/20 15 9 [email or web address] 02/10/2015 08/25/19 16 1 Pre-[place] Flowsheet Flowsheet Date 02/10/2015 Ulloa Score Blood Edema Fundus Height Fundus Units Glucose Ketones Leukocytes Nitrite Labor Signs Protein Cervic Dilation Cervic Effacement Cervic Station 12 none neg Type Weight in lbs Pre/Post Dialysis Refused 182.149657041168 BP Diastolic BP Location Tested BP Systolic BP Type 76 120 sitting Fetus Heart Rate Present A 1260 Present Fetus Movement A No Comments + BV to consider flu shot wi ll order 17 hop Flowsheet Date 03/03/2015 Ulloa Score Blood Edema Fundus Height Fundus Units Glucose Ketones Leukocytes Nitrite Labor Signs Protein Cervic Dilation Cervic Effacement Cervic Station Type Weight in lbs Pre/Post Dialysis Refused 182.752164014946 BP Diastolic BP Location Tested BP Systolic BP Type 74 118 Fetus Heart Rate Present Fetus Movement Comments transfer ob visit Flowsheet Date 02/20/2017 Ulloa Score Blood Edema Fundus Height Fundus Units Glucose Ketones Leukocytes Nitrite Labor Signs Protein Cervic Dilation Cervic Effacement Cervic Station Type Weight in lbs Pre/Post Dialysis Refused 182.209932805865 BP Diastolic BP Location Tested BP Systolic BP Type 78 120 sitting Fetus Heart Rate Present Fetus Movement Comments Menstrual History Last Menstrual Date Menses Monthly On Bcp Conception Prior Menses Frequency Hcg Plus Date Menarche Onset Age 0711/18/2014 Genetic Screening And Infection History Question Response Note Patient's Age Will Be 35 Yea rs Or Older At Estimated Date of Delivery false Thalassemia (Belgian, Maori, Mediterranean, Or Background): MCV < 80 false Neural Tube Defect (Meningom yelocele, Spina Bifida, Or Anencephaly) false Congenital Heart Defect false Down Syndrome false Franki-Sachs (eg, Islam, Cajun , Spanish-Afton) false Porfirio Disease false Sickle Cell Disease Or Trait () false Hemophilia Or Other Blood Disorders false Muscular Dystrophy false Cystic Fibrosis false Ledyard's Chorea false Mental Retardation/Autism false If Yes, Was Person Tested Fo r Fragile X? false Other Inherited Genetic Or C hromosomal Disorder false Maternal Metabolic Disorder (eg, Type 1 Diabetes, PKU) false Patient Or Baby's Father Had A Child With Defects Not Listed Above false Recurrent Loss, Or A Stillbirth false Medications (including Suppl ements, Vitamins, Herbs, OTC Drugs), Illicit/Recreational Drugs, Alcohol false If Yes, Agent(s) And Strength/Dosage false Any Other Genetic History false Live With Someone With TB Or Exposed To TB false Patient Or Partner Has Histo ry Of Genital Herpes false Rash Or Viral Illness Since Last Menstrual Period false History Of STD, Gonorrhea, C hlamydia, HPV, Syphilis false partner present at time of i nterview Other Infection History false Delivery Information Delivery Date Delivery Type Labor Anesthesia Weeks Gestation Incision Type Labor Labor Length Hrs Delivered By Post Complications Tubal Sterilization Discharge Date Comments 6 Sponta neous Local 38.5 false Mc Kimberlee Melendez A 08/18/2015 Discharge Information Feeding Method Contraceptive Method Maternal HG B and HCT Levels Breast Nexplanon Ob Episode Information Episode Created Date Number of Fetuses Patient Bloodtype Patient rh Status Prepregnancy Weight lbs Domestic Partner Domestic Partner Phone Father Name [employer] Status 02/11/20 15 1 CLOSED Fetus Data First Name Last Name Admitted to NICU Weight (g) Sex Living Outcome Pediatric Complications Fetus ID Race Codes Race Delivery Type 737.087 M Prematur [place] [id number] Primary Michael Calculation Initial Michael Date Initial Exam Date Initial Exam Provider Initial Ultrasound Date Last Menstrual Period Date Ultra Sound Weeks Gestation 0 Eighteen To Twenty Week Michael Update Ultra Sound Date Fundal Height At Umbil Quickening Date Ultra Sound Latest Weeks Gestation Final Michael Confirmed By Final Michael Confirmed Date Final Michael Date Ultra Sound Latest Days Gestation 0 0 Menstrual History Last Menstrual Date Menses Monthly On Bcp Conception Prior Menses Frequency Hcg Plus Date Menarche Onset Age Delivery Information Delivery Date Delivery Type Labor Anesthesia Weeks Gestation Incision Type Labor Labor Length Hrs Delivered By Post Complications Tubal Sterilization Discharge Date Comments 0 28 not living Discharge Information Feeding Method Contraceptive Method Maternal HG B and HCT Levels Ob Episode Information Episode Created Date Number of Fetuses Patient Bloodtype Patient rh Status Prepregnancy Weight lbs Domestic Partner Domestic Partner Phone Father Name [employer] Status 02/11/20 15 1 CLOSED Fetus Data First Name Last Name Admitted to NICU Weight (g) Sex Living Outcome Pediatric Complications Fetus ID Race Codes Race Delivery Type 2608.15 4 M Prematur e 35618 Vaginal Michael Calculation Initial Michael Date Initial Exam Date Initial Exam Provider Initial Ultrasound Date Last Menstrual Period Date Ultra Sound Weeks Gestation 0 Eighteen To Twenty Week Michael Update Ultra Sound Date Fundal Height At Umbil Quickening Date Ultra Sound Latest Weeks Gestation Final Michael Confirmed By Final Michael Confirmed Date Final Michael Date Ultra Sound Latest Days Gestation 0 0 Menstrual History Last Menstrual Date Menses Monthly On Bcp Conception Prior Menses Frequency Hcg Plus Date Menarche Onset Age Delivery Information Delivery Date Delivery Type Labor Anesthesia Weeks Gestation Incision Type Labor Labor Length Hrs Delivered By Post Complications Tubal Sterilization Discharge Date Comments 9 36 true High BP Discharge Information Feeding Method Contraceptive Method Maternal HG B and HCT Levels Ob Episode Information Episode Created Date Number of Fetuses Patient Bloodtype Patient rh Status Prepregnancy Weight lbs Domestic Partner Domestic Partner Phone Father Name [employer] Status 02/21/20 17 1 DELETED Michael Calculation Initial Michael Date Initial Exam Date Initial Exam Provider Initial Ultrasound Date Last Menstrual Period Date Ultra Sound Weeks Gestation 0 Eighteen To Twenty Week Michael Update Ultra Sound Date Fundal Height At Umbil Quickening Date Ultra Sound Latest Weeks Gestation Final Michael Confirmed By Final Michael Confirmed Date Final Michael Date Ultra Sound Latest Days Gestation 0 0 Menstrual History Last Menstrual Date Menses Monthly On Bcp Conception Prior Menses Frequency Hcg Plus Date Menarche Onset Age Delivery Information Delivery Date Delivery Type Labor Anesthesia Weeks Gestation Incision Type Labor Labor Length Hrs Delivered By Post Complications Tubal Sterilization Discharge Date Comments 6 38 Discharge Information Feeding Method Contraceptive Method Maternal HG B and HCT Levels
--- OUTSIDE RECORDS SUMMARY | 2024-06-25 16:39 | XMS_ITS | Patient Health Summary ---
Author Organization [facility] [employer] Address [address] [place] [address] Care Team Providers Care Security Incident Response Engineer Name Role Phone Unavailable Primary Care Provider Unavailabl e Note from [facility],non-owned Affiliates and Associated Physician Practices is amultiple site organization consisting of ambulatory clinics and hospital sitesin [place], [place], [place] and [place]. This disclosure is being madepursuant to the Care Everywhere program and may not contain all information available regarding this patient. Last updated 18.[facility] [employer] Allergies No known active allergies Medications * Be aware that medications may not be up to date on this document. Alwaysverify current medications with the patient. * Qtd-Scy-XO-Fish Oil ([facility] PO) Take 2 Tabs by mouth * ferrous sulfate 325 (65 FE) MG tablet(Started 06/28/2015) Take 1 Tab by mouth 2 times daily 5 refills left * docusate sodium (COLACE) 100 MG capsule(Started 07/26/2015) Take 1 Cap by mouth once daily 5 refills left * ibuprofen (MOTRIN) 600 MG tablet(Started 08/18/2015) Take 1 Tab by mouth every 6 hours as needed for Pain * docusate sodium (COLACE) 100 MG capsule(Started 08/18/2015) Take 1 Cap by mouth 2 times daily 1 refill left Active Problems Problem Noted Date Diagnosed Date Vaginal after delivery 08/16/2015 GBS (group B Streptococcus c arrier), +RV culture, currently 08/04/2015 GDM (gestational diabetes mellitus) 06/28/2015 Amniotic disorder in third trimester 06/14/2015 Obesity 03/15/2015 H/O section 03/15/2015 H/O Pre-Eclampsia? 03/15/2015 Supervision of high-risk 03/14/2015 H/O delivery, currently 015 Encounter for repeat ultraso und for low [...] previa without hemo rrhage, antepartum 03/22/2015 08/16/2015 Immunizations * Rho D Immune Globulin(Given 06/14/2015) * TDAP (7yrs+)(Given 06/14/2015) Social History Tobacco Use Types Packs/Day Years [...] Mass Index 32.74 09/27/2015 10:15 AM CDT Procedures * HCG URINE QUALITATIVE - POCT (IP) [facility](Performed 10/20/2015) * HCG URINE QUALITATIVE - POINT OF CARE(Performed 09/27/2015) * GTT 2 HR (75G) NON GESTATIONAL(Performed 09/27/2015) * IMAGING/RADIOLOGY/XRAY RESULTS ORDER(Performed 08/21/2015) * LAB RESULTS ORDER(Performed 08/19/2015) * GLUCOSE FASTING(Performed 08/17/2015) * HGB HCT PANEL(Performed 08/17/2015) * BLOOD GASES CORD ART (ISTAT)(Performed 08/16/2015) * PATHOLOGY TISSUE EXAM (STL)(Performed 08/16/2015) * CROSSMATCH RBC LEUKOREDUCED(Performed 08/16/2015) * CROSSMATCH RBC LEUKOREDUCED(Performed 08/16/2015) * TYPE + SCREEN PANEL(Performed 08/16/2015) Performed for Threatened labor at term ([facility]) * GLUCOSE - POINT OF CARE(Performed 08/16/2015) * CBC W AUTO DIFFERENTIAL(Performed 08/16/2015) Performed for Threatened labor at term ([facility]) * BIOPHYSICAL PROFILE W NST(Performed 08/16/2015) Performed for Supervision of high-risk , unspecified trimester ([facility]), Supervision of high-risk , third trimester ([facility]), H/O delivery, currently , unspecified trimester ([facility]), Encounter for routine screening for malformation using ultrasonics * GLUCOSE PROTEIN KETONE URINE - POINT OF CAR(Performed 08/16/2015) * GLUCOSE PROTEIN KETONE URINE - POINT OF CAR(Performed 08/09/2015) * BIOPHYSICAL PROFILE W NST(Performed 08/09/2015) Performed for Supervision of high-risk , unspecified trimester ([facility]), Supervision of high-risk , third trimester (HCC), H/O delivery, currently , unspecified trimester (HCC), Encounter for routine screening for malformation using ultrasonics * CULTURE STREP B(Performed 08/02/2015) * BIOPHYSICAL PROFILE W NST(Performed 08/02/2015) Performed for Supervision of high-risk , unspecified trimester ([facility]), Supervision of high-risk , third trimester (HCC), H/O delivery, currently , unspecified trimester ([facility]), Encounter for routine screening for malformation using ultrasonics * GLUCOSE - POINT OF CARE(Performed 08/02/2015) * GLUCOSE PROTEIN KETONE URINE - POINT OF CAR(Performed 08/02/2015) * EKG 12-LEAD(Performed 07/26/2015) Performed for Tachycardia * CBC W AUTO DIFFERENTIAL(Performed 07/26/2015) Performed for Tachycardia * TSH REFLEX FREE T4(Performed 07/26/2015) Performed for Tachycardia * GLUCOSE - POINT OF CARE(Performed 07/26/2015) * BIOPHYSICAL PROFILE W NST(Performed 07/26/2015) Performed for Supervision of high-risk , unspecified trimester (HCC), Supervision of high-risk , third trimester (HCC), H/O delivery, currently , unspecified trimester (HCC), Encounter for routine screening for malformation using ultrasonics * GLUCOSE PROTEIN KETONE URINE - POINT OF CAR(Performed 07/19/2015) * GLUCOSE PROTEIN KETONE URINE - POINT OF CAR(Performed 07/19/2015) * GLUCOSE PROTEIN KETONE URINE - POINT OF CAR(Performed 07/12/2015) * BIOPHYSICAL PROFILE W NST(Performed 07/05/2015) Performed for Supervision of high-risk , unspecified trimester (HCC), Supervision of high-risk , third trimester (HCC), H/O delivery, currently , unspecified trimester (HCC), Encounter for routine screening for malformation using ultrasonics * GLUCOSE - POINT OF CARE(Performed 06/28/2015) * GTT 3 HR (100G) GESTATIONAL DIAGNOSTIC(Performed 06/28/2015) Performed for Supervision of normal , unspecified trimester * GLUCOSE PROTEIN KETONE URINE - POINT OF CAR(Performed 06/28/2015) * BIOPHYSICAL PROFILE W NST(Performed 06/28/2015) Performed for Supervision of high-risk , unspecified trimester (HCC), Supervision of high-risk , third trimester (HCC), H/O delivery, currently , unspecified trimester (HCC), Encounter for routine screening for malformation using ultrasonics * BIOPHYSICAL PROFILE W NST(Performed 06/21/2015) Performed for Supervision of high-risk , unspecified trimester (HCC), Supervision of high-risk , third trimester (HCC), H/O delivery, currently , unspecified trimester (HCC), Encounter for routine screening for malformation using ultrasonics * SONOGRAM - COMPLETE(Performed 06/14/2015) * TYPE + SCREEN PANEL(Performed 06/14/2015) * RPR(Performed 06/14/2015) * CBC W AUTO DIFFERENTIAL(Performed 06/14/2015) * GLUCOSE CHALLENGE(Performed 06/14/2015) * GLUCOSE PROTEIN KETONE URINE - POINT OF CAR(Performed 06/14/2015) * GLUCOSE PROTEIN KETONE URINE - POINT OF CAR(Performed 05/17/2015) * SONOGRAM - TRANSVAGINAL(Performed 05/17/2015) Performed for H/O delivery, currently , second trimester ([facility]) * SONOGRAM - TRANSVAGINAL(Performed 05/03/2015) Performed for H/O delivery, currently , second trimester ([facility]) * GLUCOSE PROTEIN KETONE URINE - POINT OF CAR(Performed 04/26/2015) * SONOGRAM - COMPLETE(Performed 04/19/2015) Performed for Supervision of high-risk , second trimester ([facility]), Obesity, unspecified obesity severity, unspecified obesity type * ALPHA FETOPROTEIN BLOOD MATERNAL QUAD PANEL(Performed 04/12/2015) Performed for Rh negative status during , unspecified trimester, fetus 1, Placenta previa without hemorrhage, antepartum, second trimester ([facility]), Hx of preeclampsia, prior , currently , second trimester ([facility]), Supervision of high-risk , second trimester ([facility]), H/Opreterm delivery, currently , second trimester ([facility]) * SONOGRAM - TRANSVAGINAL(Performed 04/12/2015) Performed for H/O delivery, currently , second trimester ([facility]) * GLUCOSE PROTEIN KETONE URINE - POINT OF CAR(Performed 04/12/2015) * LAB HISTORICAL RESULTS-ONBASE(Performed 04/12/2015) * SONOGRAM - COMPLETE(Performed 03/22/2015) Performed for Supervision of high-risk , second trimester ([facility]) * HEMOGLOBIN A1C(Performed 03/15/2015) * T4 FREE(Performed 03/15/2015) * TSH(Performed 03/15/2015) * GLUCOSE PROTEIN KETONE URINE - POINT OF CAR(Performed 03/15/2015) Results * HCG URINE QUALITATIVE - POCT (IP) [facility] (10/20/2015) Test Urine [facility] Comment:neg Urine specimen (specimen) 10/20/2015 Lilo Garcia MD LAB - POINT OF CARE ORDERABLES [facility] * HCG URINE QUALITATIVE - POINT OF CARE (IP) (09/27/2015 10:19 AM CDT) HCG Qual Urine Negative Negative [facility] POCT TESTING QC Verified Yes Yes [facility] POC T TESTING Urine specimen (specimen) URINE / Unknown 09/27/2015 10:19 AM CDT Ruth Ball Marcos [facility] - POINT O F CARE ORDERABLES Performing Organization Address City/[facility] Co de Phone Number [facility] POCT TESTING [address] [place] [address] * GTT 2 HR (75G) NON GESTATIONAL (09/27/2015 10:12 AM CDT) Glucose Dose 75 gm 09/27/2015 1:24 PM CDT [facility] GTT Fasting 86 mg/dL 09/27/2015 1:24 PM CDT [facility] GTT 1 Hour 133 mg/dL 09/27/2015 1:24 PM CDT [facility] GTT 2 Hour 94 mg/dL 09/27/2015 1:24 PM CDT [facility] Blood BLOOD SPECIMEN / Unknown Venipuncture / Unknown 09/27/2015 10:12 AM CDT 09/27/2015 10:20 AM CDT Ruth Ball Marcos [facility] - UNDERWATER TRAPPER RY ORDERABLES Performing Organization Address [facility] Co de Phone Number [facility] [address] [place] [address] * IMAGING/RADIOLOGY/XRAY RESULTS ORDER (08/21/2015 11:31 PM CDT) Anatomical Region Laterality Modality Other Narrative 08/21/2015 11:31 PM CDT Ordered by an unspecified provider. Scanned Document IMAGING * LAB RESULTS ORDER (08/19/2015 9:50 PM CDT) Narrative 08/19/2015 9:50 PM CDT Ordered by an unspecified provider. Scanned Document LAB - THERAPEUTIC DR UG MONITORING ORDERABLES * (ABNORMAL) HGB HCT PANEL (08/17/2015 5:07 AM CDT) Hemoglobin 8.6(L) 12.0 - 15.6 gm/dL 08/17/2015 5:43 AM CDT [facility] Hematocrit 25.8(L) 35.9 - 45.5 % 08/17/2015 5:43 AM CDT [facility] Blood BLOOD SPECIMEN / Unknown Lab Venipuncture / Unknown 08/17/2015 5:07 AM CDT 08/17/2015 5:23 AM CDT Brook Loaiza MD LAB - HEMATOLOGY ORDERABLES Performing Organization Address [facility]/ZIP Co de Phone Number [facility] [address] [place], [place] [phone] * GLUCOSE FASTING (08/17/2015 5:07 AM CDT) Pathologist [facility] Glucose Fasting 100 74 - 106 mg/dL 08/17/2015 5:38 AM CDT [facility] Blood BLOOD SPECIMEN / Unknown Lab Venipuncture / Unknown 08/17/2015 5:07 AM CDT 08/17/2015 5:23 AM CDT Brook Loaiza MD LAB - CHEMISTRY O RDERABLES Performing Organization Address [facility]/ZIP Co de Phone Number [facility] [address] [place] [phone] * (ABNORMAL) BLOOD GASES CORD ART (ISTAT) (08/16/2015 11:47 PM CDT) pH Cord Arterial POCT 7.17(L) 7.20 - 7.34 pH 08/16/2015 11:57 PM CDT [facility] pCO2 Cord Arterial POCT 57.9(H) 45 - 55 mmHg 08/16/2015 11:57 PM CDT [facility] pO2 Cord Arterial POCT 19 12 - 25 mmHg 08/16/2015 11:57 PM CDT [facility] HCO3 Cord Arterial POCT 21.0 15 - 29 mmol/L 08/16/2015 11:57 PM CDT [facility] BE Cord Arterial POCT -8(L) -2.9 - 8.3 mmol/L 08/16/2015 11:57 PM CDT [facility] TCO2 Cord Arterial POCT 23 mmol/L 08/16/2015 11:57 PM CDT [facility] O2 Saturation Cord Art % Calc POCT 19 % 08/16/2015 11:57 PM CDT [facility] Site CORD ART 08/16/2015 11:57 PM CDT [facility] Sample iSTAT CORD A 08/16/2015 11:57 PM CDT [facility] Blood CORD BLOOD SPECIMEN / Unknown 08/16/2015 11:47 PM CDT 08/16/2015 11:57 PM CDT Dillon Blanchard MD LAB - POINT OF CARE ORDERABLES [facility] [address] [place] [address] * GROSS + MICRO EXAM (STL) (08/16/2015 11:35 PM CDT) Case Report Surgical Pathology Report Case: [id number] Authorizing Provider: Kirill Holt MD Collected: 08/16/2015 11:35 PM Ordering Location: [facility] LDR Received: 08/18/2015 06:30 AM Pathologist: Apple Menendez MD Specimen: Placenta 08/21/2015 12:18 PM CDT [facility] Final Diagnosis 1. Placenta: -- Mature placenta, 480 grams -- Three-vessel umbilical cord with no pathologic changes -- Chorioamniotic membranes with no pathologic diagnosis GM/alj 08/21/2015 12:18 PM CDT [facility] Clinical History precipitous delivery, baby girl, APGARs 9/9, 2,750 gm. 08/21/2015 12:18 PM CDT [facility] Gross Description The specimen is received fixed in formalin in one container labeled with the patient's name and Donaby, Sara and placenta and contains a flores placenta with an attached portion of membranes and umbilical cord. The placenta measures 15 x 15 and has an average thickness of 2.8 cm. The trimmed placental weight is 480 gm. The white-raines umbilical cord inserts eccentrically 4 cm from the disc margin. The membranes are raines-avila and opaque. They insert at the disc margin. The surface is intact. Serial section reveals a dark red beefy parenchyma. The usual customer account representative sections are submitted in cassette A1-A3. /[facility] 08/21/2015 12:18 PM CDT [facility] Microscopic Description Microscopic examination reveals a three-vessel umbilical cord showing no evidence of funisitis or thrombosis. The chorioamniotic membranes show no evidence of inflammation, and meconium is not identified. The chorionic villi are small, mature, and well vascularized with no evidence of villitis or infarction. The decidua basalis and chorionic plate show no pathologic changes. /[facility] 08/21/2015 12:18 PM CDT [facility] Pathology/Cytolo gy ENTIRE PLACENTA / Unknown 08/16/2015 11:35 PM CDT 08/18/2015 6:30 AM CDT Kirill Holt MD LAB - PATHOLOGY/CYTO LOGY ORDERABLES [facility] [address] [place] [address] * CROSSMATCH RBC (08/16/2015 11:18 PM CDT) Only the most recent of2 resultswithin the time period is included. Unit Donor # [id number] -N 08/20/2015 2:06 AM CDT [facility] Product Code E0336 08/20/2015 2:06 AM CDT [facility] Unit Description E0336 RBC, LR, CPD>AS1 08/20/2015 2:06 AM CDT [facility] ABO Donor Type A 08/20/2015 2:06 AM CDT [facility] Rh Type Unit POS 08/20/2015 2:06 AM CDT [facility] Crossmatch Interpretation Compatible 08/20/2015 2:06 AM CDT [facility] Unit Status Returned 08/20/2015 2:06 AM CDT [facility] Miscellaneous samples (specimen) BLOOD SPECIMEN / Unknown Venipuncture / Unknown 08/16/2015 11:18 PM CDT 08/17/2015 12:04 AM CDT Kirill Holt MD LAB - BLOOD BANK ORD ERABLES Performing Organization Address [facility] Co de Phone Number [facility] BLOOD [facility] [address] [place] [address] * TYPE + SCREEN PANEL (08/16/2015 11:09 PM CDT) Only the most recent of2 resultswithin the time period is included. ABO A 08/16/2015 11:58 PM CDT [facility] Rh Type Positive 08/16/2015 11:58 PM CDT [facility] Comment:History check perfor med. No retype required. Antibody Screen Negative 08/16/2015 11:58 PM CDT [facility] BLOOD [facility] Miscellaneous samples (specimen) BLOOD SPECIMEN / Unknown Venipuncture / Unknown 08/16/2015 11:09 PM CDT 08/16/2015 11:14 PM CDT Jeff Waterman MD LAB - BLOOD BANK ORDERABLES Performing Organization Address [facility] Co de Phone Number [facility] [address] [place] [address] * GLUCOSE - POINT OF CARE (08/16/2015 10:29 PM CDT) Only the most recent of4 resultswithin the time period is included. Pathologist [facility] Glucose WB/POC 84 70 - 106 mg/dL 08/16/2015 10:30 PM CDT [facility] Blood BLOOD SPECIMEN / Unknown 08/16/2015 10:29 PM CDT 08/16/2015 10:30 PM CDT Dillon Blanchard MD LAB - POINT OF CARE ORDERABLES Performing Organization Address [facility]/ZIP Co de Phone Number [facility] [address] [place] [address] * (ABNORMAL) CBC W AUTO DIFFERENTIAL (08/16/2015 10:25 PM CDT) Only the most recent of3 resultswithin the time period is included. WBC 11.3(H) 4.4 - 10.7 x10E9/L 08/16/2015 10:38 PM [facility] WBC Corrected x10E9/L 08/16/2015 10:38 PM [facility] RBC 3.48(L) 3.80 - 5.20 x10E12/L 08/16/2015 10:38 PM [facility] Hemoglobin 9.7(L) 12.0 - 15.6 gm/dL 08/16/2015 10:38 PM [facility] Hematocrit 28.6(L) 35.9 - 45.5 % 08/16/2015 10:38 PM [facility] MCV 82.2 80.7 - 98.3 fl 08/16/2015 10:38 PM [facility] MCH 27.9 26.7 - 34.0 pg 08/16/2015 10:38 PM [facility] MCHC 33.9 30.8 - 35.9 gm/dL 08/16/2015 10:38 PM [facility] Platelet Count 229 153 - 416 x10E9/L 08/16/2015 10:38 PM [facility] RDW-CV 14.7 12.1 - 14.9 % 08/16/2015 10:38 PM [facility] MPV 11.0 9.4 - 12.9 fl 08/16/2015 10:38 PM [facility] Neutrophils % 74.8(H) 44.0 - 73.0 % 08/16/2015 10:38 PM [facility] Lymphocytes % 16.7(L) 20.0 - 43.0 % 08/16/2015 10:38 PM [facility] Monocytes % 6.4 5.0 - 13.0 % 08/16/2015 10:38 PM [facility] Eosinophils % 0.5 0.0 - 6.0 % 08/16/2015 10:38 PM [facility] Basophils % 0.3 0.0 - 2.0 % 08/16/2015 10:38 PM [facility] Immature Granulocytes 1.3(H) 0 - 1 % 08/16/2015 10:38 PM [facility] Neutrophil Absolute 8.48(H) 2.01 - 7.14 x10E9/L 08/16/2015 10:38 PM CDT [facility] Lymphocytes Absolute 1.89 1.07 - 3.94 x10E9/L 08/16/2015 10:38 PM CDT [facility] Monocytes Absolute 0.72 0.26 - 1.07 x10E9/L 08/16/2015 10:38 PM CDT [facility] Eosinophils Absolute 0.06 0 - 0.47 x10E9/L 08/16/2015 10:38 PM CDT [facility] Basophils Absolute 0.03 0 - 0.08 x10E9/L 08/16/2015 10:38 PM CDT [facility] Immature Granulocytes Absolute 0.15(H) 0.00 - 0.06 x10E9/L 08/16/2015 10:38 PM CDT [facility] nRBC Auto 0 /100 WBC 08/16/2015 10:38 PM CDT [facility] Blood BLOOD SPECIMEN / Unknown Venipuncture / Unknown 08/16/2015 10:25 PM CDT 08/16/2015 10:32 PM CDT Jeff Waterman MD LAB - HEMATOLOGY ORDERABLES Performing Organization Address City/State/[facility] Co de Phone Number [facility] [address] [place] [phone] * MFM BIOPHYSICAL PROFILE W NST (08/16/2015 4:06 PM CDT) Only the most recent of7 resultswithin the time period is included. Anatomical Region Laterality Modality Other 08/16/2015 4:06 PM CDT Narrative 08/16/2015 4:31 PM CDT [facility] PHONE: FAX: Pat. Name: SARA STUBBS Pat. No: [id number] Study Date: 08/16/2015 4:06pm , Age: 07 1990, 24 Pregnancies: 3, Para 0201 Height: 62 in Weight: 175 lb LMP: 11/18/2014 GA by LMP: 38w5d GA by 1st: 38w5d GA Selected: 38w5d (From First S) JUNIOR: 08/25/2015 Referring MD: MD JULIO Electrocardiograph Technician: David Wright RDMS Hist/Ind: Gestational Diabetes Hx 28 week sPTD, demise Hx 36 week indicated PTD (?PreE) Heart Rate: 160 bpm Amniotic Fluid Index: 19.1cm (07.2-23.0) Q1: 4.0cm Q2: 5.7cm Q3: 5.1cm Q4: 4.3cm Biophysical Profile: 02/11 Breathin Tone: 2 NST: 2 Movement: 2 AFV: 2 CLINICAL SUMMARY Study Number: 13 A flores fetus is identified in cephalic presentation. The placenta is fundal. The amniotic fluid volume is within normal limits. TESTING The Biophysical profile score is 10/10. The NST is reactive without decelerations. IMPRESSION: 1. Single, live, IUP at 38w5d 2. Cephalic presentation 3. Normal amniotic fluid volume 4. Reassuring testing RECOMMEND: Follow up ultrasound as clinically indicated. Assess growth on ultrasound approximately every 3-4 weeks. Thank you for allowing us the opportunity to care for your patient. Brook Paige MD <Electronic Signature> 08/16/2015 04:31pm Shaun Torrez MD [facility] ORDERABLES * GLUCOSE PROTEIN KETONE URINE - POINT OF CAR (08/16/2015 1:50 PM CDT) Only the most recent of12 resultswithin the time period is included. Glucose UA neg Negative [facility] POCT TESTING Protein UA 1+ Negative [facility] POCT TESTING Ketone UA neg Negative [facility] POCT TESTING QC Verified Yes Yes [facility] POC T TESTING Urine specimen (specimen) URINE / Unknown 08/16/2015 1:50 PM CDT Swetha Hamilton MD LAB - POINT OF CARE ORDERABLES Performing Organization Address [facility] Co de Phone Number [facility] POCT TESTING [address] [place] [address], [facility] [phone] * (ABNORMAL) CULTURE STREP B (08/02/2015 3:11 PM CDT) Pathologist [facility] Culture Growth of Streptococcus agalactiae (Group B)(AA) JJ 08/04/2015 1:15 PM CDT [facility] Microbiology MISCELLANEOUS SAMPLES / Unknown Collection / Unknown 08/02/2015 3:11 PM CDT 08/02/2015 3:45 PM CDT Narrative [facility] - 08/04/2015 1:15 PM CDT Susceptibility testing of penicillin, other beta-lactam antibiotics, and vancomycin is not necessary for beta-hemolytic streptococci groups A,B,C and G because resistant strains have not been recognized. 08/04/2015 1:15 PM JEAN PAUL [place] RN notified. Read back and acknowledged results. Shira Mac MD LAB - MICROBIOLOGY O RDERABLES Performing Organization Address City/[facility]/ZIP Co de Phone Number [facility] [address] [place] [address], [facility] [phone] * EKG 12-LEAD (07/26/2015 3:42 PM CDT) Ventricular Rate 94 BPM [facility] MUSE Atrial Rate 94 BPM [facility] MUSE P-R Interval 130 ms [facility] QRS Duration ms 62 ms [facility] Q-T Interval ms 328 ms [facility] MUSE QTC Calculation (Bezet) 410 ms [facility] MUSE Calculated P [place] 33 degrees [facility] MUSE Calculated R [place] 21 degrees [facility] MUSE Calculated T [place] 37 degrees [facility] Interpretation EKG NORMAL SINUS RHYTHM NORMAL ECG NO PREVIOUS ECGS AVAILABLE Confirmed by Linda Mcneal ([id number]) on 07/27/2015 8:28:27 AM [facility] MUSE 07/26/2015 3:42 PM CDT 07/27/2015 8:28 AM CDT Betzy Thakkar MD ECG ORDERABLES [facility] MUSE * TSH REFLEX FREE T4 (07/26/2015 2:51 PM CDT) Pathologist [facility] TSH 1.13 0.358 - 3.740 ulU/mL 07/26/2015 3:31 PM CDT [facility] Blood BLOOD SPECIMEN / Unknown Venipuncture / Unknown 07/26/2015 2:51 PM CDT 07/26/2015 2:56 PM CDT Betzy Thakkar MD LAB - CHEMISTRY ORDE RABJULIUS [facility] [address] [place] [address] * (ABNORMAL) GTT 3 HR (100G) GESTATIONAL DIAGNOSTIC (06/28/2015 9:33 AM BLACK TOP ROLLER) Glucose Dose Gestational 100 gm 06/28/2015 1:26 PM BLACK TOP ROLLER [facility] Gestational GTT Fasting 81 <95 mg/dL 06/28/2015 1:26 PM BLACK TOP ROLLER [facility] Gestational GTT 1 HR 177 <180 mg/dL 06/28/2015 1:26 PM BLACK TOP ROLLER [facility] Gestational GTT 2 HR 181(H) <155 mg/dL 06/28/2015 1:26 PM BLACK TOP ROLLER [facility] Gestational GTT 3 HR 154(H) <140 mg/dL 06/28/2015 1:26 PM BLACK TOP ROLLER [facility] Blood BLOOD SPECIMEN / Unknown Venipuncture / Unknown 06/28/2015 9:33 AM BLACK TOP ROLLER 06/28/2015 9:46 AM BLACK TOP ROLLER Shaun Torrez MD LAB - CHEMISTRY INDIRA HOOKER [facility] Organization Address City/State/ZIP Co de Phone Number [facility] [address] [place] [address] * SONOGRAM - COMPLETE (06/14/2015 11:28 AM BLACK TOP ROLLER) Only the most recent of3 resultswithin the time period is included. Anatomical Region Laterality Modality Other 06/14/2015 11:2 8 AM BLACK TOP ROLLER Narrative 06/14/2015 1:07 PM BLACK TOP ROLLER [facility] PHONE: FAX: Pat. Name: SARA STUBBS Pat. No: [id number] Study Date: 06/14/2015 11:28am , Age: 07 1990, 24 Pregnancies: 3, Para 0201 Height: 62 in Weight: 175 lb LMP: 11/18/2014 GA by LMP: 29w5d GA by 1st: 29w5d GA by US: 28w2d GA Selected: 29w5d (From First S) JUNIOR: 08/25/2015 Referring MD: MD JULIO Electrocardiograph Technician: Sarah Obsorne RDMS BMI: 32 Hist/Ind: History of a 28 week sPTD, demise History of a 36 week indicated PTD (HTN) Growth MEASUREMENTS & AGE GROWTH EVALUATION Measurement GA Range Srce %for GA Ratios ----- ---- ------- BPD 7.3 cm 29w1d (87l6n-54p8n) Hadl BPD 38% FL/BPD 0.78 (0.71 - 0.87) HC 25.8 cm 28w0d (27x6z-54r6q) Hadl HC 14% FL/AC 0.24 (0.20 - 0.24) AC 23.5 cm 27w6d (50f4r-05d3q) Hadl AC 12% HC/AC 1.10 (0.98 - 1.17) FL 5.6 cm 29w4d (43q3i-77n8g) Hadl FL 47% CI 0.81 (0.70 - 0.86) HL 4.9 cm 28w5d (45o3k-16e4y) Alok HL 34% GA for sonogram 28w2d (85h1g-75p2r) Weight Estimate: based on (BPD,HC,AC,FL) Hadlock Weight: 1239 gm (3593-8275) Hadlo : 2lbs, 11oz Normal: 1505 gm (9318-7458) Hadlo Wt% 17% for 29w5d Cervical Length: 3.2 cm Heart Rate: 160 bpm Amniotic Fluid Index: 08.5cm (09.1-23.3)* Q1: 2.4cm Q2: 0.8cm Q3: 2.9cm Q4: 2.5cm Biophysical Profile: 12/10 Breathin Tone: 2 Movement: 2 AFV: 2 DOPPLER Umbilical - Mid Cord S/D 2.47(1.98 - 4.14) PI 0.82 (0.71 - 1.30) CLINICAL SUMMARY Study Number: 6 A single fetus is identified in cephalic presentation. The measurements today are consistent with appropriate growth. The JUNIOR selected is based on LMP. The estimated weight is at the 17%. The amniotic fluid volume is decreased. The placenta is posterior. The patient was advised that ultrasound does not allow detection of all structural or chromosomal abnormalities. TRANSVAGINAL ULTRASOUND: (Due to low CELIA) The transvaginal cervical length measures 3.24cm with no funneling identified. No change is seen with fundal pressure. TESTING The Biophysical profile score is 8/8. DOPPLER STUDIES: The umbilical artery Doppler S/D ratio is 2.47, which is within normal limits for gestational age. The umbilical artery PI is 0.82, which is within normal limits for gestational age. IMPRESSION: Single, live vertex IUP at 29w5d Decreased amniotic fluid volume Appropriate growth Reassuring status Placental location: Posterior No major malformations are seen today within the limitations of ultrasound Normal TV CL RECOMMEND: Follow up ultrasound weekly BPP, Umbilical Dopplers, and CELIA. Growth in 3 weeks . Thank you for allowing us the opportunity to care for your patient. Leonel Landin MD <Electronic Signature> 06/14/2015 01:07pm Ruth CONLEY M ORDERABLE S * RPR (06/14/2015 10:55 AM BLACK TOP ROLLER) RPR Non Reactive Non Reactive 06/15/2015 10:31 AM BLACK TOP ROLLER [facility] Blood BLOOD SPECIMEN / Unknown Venipuncture / Unknown 06/14/2015 10:55 AM BLACK TOP ROLLER 06/14/2015 11:00 AM BLACK TOP ROLLER Ruth CONLEY LAB - UNDERWATER TRAPPER RY ORDERABLES [facility] [address] [place] [address] * (ABNORMAL) GLUCOSE CHALLENGE (06/14/2015 10:55 AM BLACK TOP ROLLER) [facility] Signature Glucose Challenge 154(H) 64 - 140 mg/dL 06/14/2015 11:36 AM BLACK TOP ROLLER [facility] Glucose Challenge Time 06/14/2015 11:36 AM BLACK TOP ROLLER [facility] Blood BLOOD SPECIMEN / Unknown Venipuncture / Unknown 06/14/2015 10:55 AM BLACK TOP ROLLER 06/14/2015 11:00 AM BLACK TOP ROLLER Ruth Rodríguez CHEMOTHERAPIST-CTO LAB - UNDERWATER TRAPPER RY ORDERABLES [facility] [address] [place] [address] * [facility] US SONOGRAM - TRANSVAGINAL (05/17/2015 9:54 AM BLACK TOP ROLLER) Only the most recent of3 resultswithin the time period is included. Anatomical Region Laterality Modality Other 05/17/2015 9:54 AM BLACK TOP ROLLER Narrative 05/17/2015 6:23 PM BLACK TOP ROLLER [facility] PHONE: FAX: Pat. Name: SARA STUBBS Pat. No: [id number] Study Date: 05/17/2015 9:54am , Age: 07 1990, 24 Pregnancies: 3, Para 0201 Height: 62 in Weight: 175 lb LMP: 11/18/2014 GA by LMP: 25w5d GA by 1st: 25w5d GA by US: 25w4d GA Selected: 25w5d (LMP) JUNIOR: 08/25/2015 Referring MD: MD JULIO Electrocardiograph Technician: Eli Odom RDMS Hist/Ind: History of a 28 week sPTD, demise History of a 36 week indicated PTD (HTN) Complete Anatomy MEASUREMENTS & AGE GROWTH EVALUATION Measurement GA Range Srce %for GA Ratios ----- ---- ------- BPD 6.1 cm 24w6d (14n6s-30g4j) Hadl BPD 34% FL/BPD 0.79 (0.71 - 0.87) HC 23.1 cm 25w1d (09f6x-44n2h) Hadl HC 37% FL/AC 0.24 (0.20 - 0.24) AC 20.5 cm 25w0d (66v4q-03s4h) Hadl AC 37% HC/AC 1.13 (1.01 - 1.20) FL 4.9 cm 26w2d (53r9y-83k4j) Hadl FL 62% CI 0.75 (0.70 - 0.86) HL 4.5 cm 26w4d (20b5m-91n4k) Alok HL 64% GA for sonogram 25w4d (19p0n-67f3j) Weight Estimate: based on (HL,BPD,HC,AC,FL) Avg Weight: 817 gm (698-936) Hadlock : 1lbs, 12oz Normal: 875 gm (656-1093) Hadlock Wt% 38% for 25w5d Cervical Length: 3.6 cm Heart Rate: 166 bpm Amniotic Fluid Index: 03.1cm (Deepest Pocket) CLINICAL SUMMARY Study Number: 5 A single fetus is identified in cephalic presentation. The measurements today are consistent with appropriate growth. The JUNIOR selected is based on LMP and a prior ultrasound examination. The estimated weight is at the 38%. The amniotic fluid volume is within normal limits. The placenta is posterior. TRANSVAGINAL ULTRASOUND: The transvaginal cervical length measures 3.55cm with no funneling identified. No change is seen with fundal pressure. The patient was advised that ultrasound does not allow detection of all structural or chromosomal abnormalities. IMPRESSION: Single, live vertex IUP at 25w5d Normal amniotic fluid volume Appropriate growth Placental location: Posterior No major malformations are seen today within the limitations of ultrasound Completed anatomy survey Normal TV CL RECOMMEND: Follow up ultrasound as clinically indicated. Thank you for allowing us the opportunity to care for your patient. Leonel Landin MD <Electronic Signature> 05/17/2015 06:23pm Qi Zazueta MD [facility] ORDERABLES * ALPHA FETOPROTEIN BLOOD MATERNAL QUAD PANEL (04/12/2015 3:00 PM BLACK TOP ROLLER) Results Report 04/16/2015 7:08 PM BLACK TOP ROLLER [facility]) Test Results *Screen Negative* 04/16/2015 7:08 PM BLACK TOP ROLLER [facility]) Gestational Age Weeks 20.5 WEEKS 04/16/2015 7:08 PM BLACK TOP ROLLER [facility]) Gestational Age Based On LMP 04/16/2015 7:08 PM BLACK TOP ROLLER [facility]) Maternal Age at JUNIOR 24.7 YEARS 04/16/2015 7:08 PM BLACK TOP ROLLER [facility]) Race Black 04/16/2015 7:08 PM BLACK TOP ROLLER [facility] Weight 191 lbs 04/16/2015 7:08 PM BLACK TOP ROLLER [facility]) Insulin Dependent Diabetes No 04/16/2015 7:08 PM BLACK TOP ROLLER [facility]) Multiple Gestation No 04/16/2015 7:08 PM BLACK TOP ROLLER [facility]) Alpha-Fetoprotein Value (EIA) 47.7 ng/mL 04/16/2015 7:08 PM BLACK TOP ROLLER [facility]) AFP MoM Value 0.80 04/16/2015 7:08 PM BLACK TOP ROLLER [facility]) hCG Value 06577 mIU/mL 04/16/2015 7:08 PM BLACK TOP ROLLER [facility]) hCG Mom 2.95 04/16/2015 7:08 PM BLACK TOP ROLLER [facility]) Estriol Value 2.48 ng/mL 04/16/2015 7:08 PM BLACK TOP ROLLER [facility]) Estriol MoM 1.25 04/16/2015 7:08 PM BLACK TOP ROLLER [facility]) LUCIANA Value 289.51 pg/mL 04/16/2015 7:08 PM BLACK TOP ROLLER [facility]) Luciana MoM Value 1.49 04/16/2015 7:08 PM BLACK TOP ROLLER [facility]) [place]BR [place] 1 [place] [address] 04/16/2015 7:08 PM BLACK TOP ROLLER [facility]) DSR (2nd Trimester) 1 IN 1671 04/16/2015 7:08 PM BLACK TOP ROLLER [facility]) DSR (By Age) 1 IN 1044 04/16/2015 7:08 PM BLACK TOP ROLLER [facility]) T18 Risk Not increased 04/16/2015 7:08 PM BLACK TOP ROLLER [facility]) T18 (by Age) 1:4066 04/16/2015 7:08 PM BLACK TOP ROLLER [facility]) Interpretation Comment 04/16/2015 7:08 PM BLACK TOP ROLLER [facility] Comment: Interpretation: Screen Negative This result is screen negative for OSB, Down Syndrome and Trisomy 18. The AFP MoM and patient specific risks calculated are based on the gestational age and the clinical information provided. This test can identify up to 80% of open neural tube defects. Closed neural tube defects and some open defects may not be detected by this test. The combination of maternal age, AFP, hCG, uE3, and LUCIANA identifies 75-80% of Down Syndrome. The combination of maternal age, AFP, hCG and uE3 identifies 60% of Trisomy 18 pregnancies. The [employer] recommends amniocentesis be offered to women age 35 and older. Recalculations are not recommended when gestational dating by LMP and ultrasound are within 10 days. Comments Comment 04/16/2015 7:08 PM BLACK TOP ROLLER [facility] Comment: Nora Castro, Ph.D., [facility] Principal Genetics Production Grip References: Available Upon Request. Multiples Of Median Cutoffs Abbreviation Definitions For AFP Elevations IDD- Insulin Dep Diabetes Flores 2.5 Black 2.8 OSBR- Open Spina Bifida IDD 2.0 Twins 4.5 Risk DSR Cutoff 1:270 DSR- Down Syndrome Risk T18 Cutoff 1:100 T18- Trisomy 18 Down Syndrome and Trisomy 18 screening are considered Investigational For further inquiries contact [facility] at [phone]. Blood specimen (specimen) BLOOD SPECIMEN / Unknown Venipuncture / Unknown 04/12/2015 3:00 PM BLACK TOP ROLLER 04/13/2015 9:04 AM BLACK TOP ROLLER Narrative [facility] ([facility]) - 04/16/2015 7:08 PM BLACK TOP ROLLER Performed at: [address] [place] [id number] Observatory Director: Zach Bain MD, Phone: [phone] Brooks Cagle MD LAB - CHEMISTRY INDIRA HOOKER [facility] ([facility]) * LAB HISTORICAL RESULTS-ONBASE (04/12/2015) 04/12/2015 Narrative [facility] - 04/17/2015 10:20 AM BLACK TOP ROLLER Historical Provider LAB - CHEMISTRY Mimi SANDERSON [facility] [address] * HEMOGLOBIN A1C (03/15/2015 4:22 PM BLACK TOP ROLLER) Pathologist [facility] Hemoglobin A1c 5.6 4.2 - 6.3 % 03/15/2015 5:26 PM BLACK TOP ROLLER [facility] Estimated Average Glucose 114 mg/dL 03/15/2015 5:26 PM BLACK TOP ROLLER [facility] Whole Blood BLOOD SPECIMEN WITH EDTA / Unknown Venipuncture / Unknown 03/15/2015 4:22 PM BLACK TOP ROLLER 03/15/2015 4:28 PM BLACK TOP ROLLER Qi Zazueta MD LAB - CHEMISTRY INDIRA HOOKER [facility] [address], [place] [id number] * TSH (03/15/2015 4:22 PM BLACK TOP ROLLER) TSH 0.665 0.358 - 3.740 uIU/mL 03/15/2015 5:05 PM BLACK TOP ROLLER [facility] Blood BLOOD SPECIMEN / Unknown Venipuncture / Unknown 03/15/2015 4:22 PM BLACK TOP ROLLER 03/15/2015 4:28 PM BLACK TOP ROLLER Qi Zazueta MD LAB - CHEMISTRY INDIRA HOOKER Performing Organization Address [facility] Co de Phone Number [facility] [address] [place] [address] * T4 FREE (03/15/2015 4:22 PM BLACK TOP ROLLER) Pathologist [facility] T4 Free 0.94 0.65 - 1.34 ng/dL 03/15/2015 5:05 PM BLACK TOP ROLLER [facility] Blood BLOOD SPECIMEN / Unknown Venipuncture / Unknown 03/15/2015 4:22 PM BLACK TOP ROLLER 03/15/2015 4:28 PM BLACK TOP ROLLER Qi Zazueta MD LAB - CHEMISTRY INDIRA HOOKER Performing Organization Address City/[facility]/ZIP Co de Phone Number [facility] [address] [place] [address]
[2024-06-25 18:37] LABS: Influenza A QL RT-PCR Negative (Negative); Influenza B QL RT-PCR Negative (Negative); RSV RNA, RT-PCR Negative (Negative); SARS-CoV-2 RNA PCR Negative (Negative)
== END 2024-06-25 16:37 | disposition home or self-care (01) ==
LOC: ANHLAB 16:37
PROVIDERS: PCP Family Medicine; Visit Provider Nurse Practitioner Family
DX: Z20.822 Contact with and (suspected) exposure to COVID-19 (principal); J11.1 Influenza due to unidentified influenza virus with other respiratory manifestations; R68.89 Other general symptoms and signs
CPT/HCPCS: 87637

== ENCOUNTER 2024-09-14 08:00 | Emergency (ER) | payer OTHER, SELFPAY ==
--- NOTE | ~2024-09-14 | XR_ITS ---
3 VIEWS LUMBAR SPINE Ordering provider: Ruthann Mckeon MD History: . Nontraumatic pain, Left side of back, worsening since friday . Comparison: None. FINDINGS: VERTEBRAL BODIES: No visible fracture or subluxation. Possible spondylolysis at the level of L5-S1. DISK SPACES: Normal. SOFT TISSUES: Normal. IMPRESSION: No acute osseous abnormality lumbar spine. Reviewed, dictated and finalized at location A.
--- OUTSIDE RECORDS SUMMARY | 2024-09-14 08:03 | XMS_ITS | Clinical Summary ---
Author Organization [facility] Address [address] [place] [address] Care Team Providers Care Fire Pot Operator Name Role Phone Unavailable Primary Care Provider Unavailabl e Source Comments [facility],non-owned Affiliates and Associated Physician Practices is amultiple site organization consisting of ambulatory clinics and hospital sitesin [place], [place], [place] and [place]. This disclosure is being madepursuant to the Care Everywhere program and may not contain all information available regarding this patient. Last updated 18.[facility] Allergies No known active allergies Medications * Be aware that medications may not be up to date on this document. Alwaysverify current medications with the patient. Cxx-Zsk-SN-Fish Oil ([facility] PO) Take 2 Tabs [...] migh t be different from the original. 08/04/15 + GBBS 08/03/15 Per [place]- unable to presently locate op report from prior delivery due to change in services. Will continue to search. Pt receives her Radha from [facility] @ [phone] Problem Noted Date Diagnosed Date Vaginal after [...] 08/16/2015 Overview (03/22/2015): Posterior placenta previa Immunizations Immunization Administration Dates Next Due Rho D Immune Globulin 06/14/2015 TDAP (7yrs+) 06/14/2015 Social History Tobacco Use Types Packs/Day Years Used Date Smoking Tobacco: Never Smokeless Tobacco: Never Alcohol Use Standard Drinks/Week Comments No 0 (1 standard drink = 0.6 oz pur e alcohol) Comments No Sex and Gender Information Value Date Recorded Sex Assigned at Female 09/12/2021 10:45 PM CDT Legal 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 Gender Identity Female 09/12/2021 10:45 PM CDT [...] 10:15 AM CDT Height 157.5 cm (5' 2 ) 09/27/2015 10:15 AM CDT Body Mass Index 32.74 09/27/2015 10:15 AM CDT Plan of Treatment Health Maintenance Due Date Last Done Comments PAP SMEAR 1990 HIV SCREENING 2005 HEPATITIS C SCREENING 11/20/2008 HEPATITIS B VACCINE (1 of 3 - 19+ 3-dose series) 2009 COVID-19 VACCINE ( - 2023-2 5 season) 2024 DEPRESSION SCREENING 05/05/2024 INFLUENZA VACCINE (Season Ended) 2025 02/20/2017, 03/03/2015 DTAP/TDAP/TD VACCINES (2 - T d or Tdap) 06/14/2025 06/14/2015 ZOSTER VACCINE (1 of 2) 2040 HIB VACCINE Aged Out No longer eligi ble based on patient's age to complete this topic HPV VACCINE Aged Out No longer eligi ble based on patient's age to complete this topic MENINGOCOCCAL (Group B) VACCINE SHARED DECISION-MAKING Aged Out No longer eligible based on patient's age to complete this topic MENINGOCOCCAL GROUPS A/C/Y/W VACCINE Aged Out No longer eligible b ased on patient's age to complete this topic PNEUMOCOCCAL VACCINE Aged Out No long er eligible based on patient's age to complete this topic Insurance [facility] [place] [address] [place] [address] [employer] Member Subscriber Plan / Payer (Ef fective for All Dates) Name:Sara Lamb Relation to Subscriber:Self Name:Sara Lamb Payer ID:[id number] (NAIC) Type:PPO Address: [place] [id number] SELF PAY NO INSURANCE Member Subscriber Plan / Payer (Ef fective for All Dates) Name:Sara Lamb Member ID:Not on file Relation to Subscriber:Not on file Name:SARA LAMB Subscriber ID:Not on file Address: [address] [place] [address] Payer ID:Not on file Group ID:Not on file Type:Self Pay Address: [place], [place] [facility] SELF PAY NO INSURANCE Member Subscriber Plan / Payer (Ef fective for All Dates) Name:FerminSara barnes Member ID:Not on file Relation to Subscriber:Not on file Name:FERMINFernieSARA Subscriber ID:Not on file Address: [address] [place] [address] Payer ID:Not on file Group ID:Not on file Type:Self Pay Address: [place], [place] Advance Directives * Full Code (Latest Code Status on File) Date Activated Date Inactivated Comments 08/16/2015 10:19 PM 08/18/2015 4:47 PM
--- OUTSIDE RECORDS SUMMARY | 2024-09-14 08:04 | XMS_ITS | Data Portability ---
[facility] Organization [facility] Address [address] [place] [address] Assessment No assessment recorded. Plan of Treatment Reminders Order Date Submit Date Provider Last Modified By Organization Details Last Modified Time Details Appointments None record ed. Lab pap, IG + HPV, cervic al - please use Z11.51 in additi on to code above for HPV testin g. 2020 021 SOM [facility], [address], [place], [address], 16:11:48 CBC 2020 021 [facility], [address], [address], [place], [address], 08:22:10 TSH, ultra- sensit ld, serum 2020 021 [facility], [address], [address], [place], [address], 08:22:12 CMP, serum or plasma 2020 021 [email or web address] [facility], [address], [address], [place], [address], 2 09:43:45 HbA1c (hemog lobin A1c), blood 2020 021 [email or web address] [facility], [address], [address], [place], [address], 12:33:18 lipid panel, serum 2020 [facility], [address], [address], [place], [address], 08:22:10 hepati tis panel (A+B+C ), acute, serum 2020 [facility], [address] [place] [address], [address], [place], [address], 08:22:11 hepati tis B surfac e Ab, qualit ative, serum 2020 [facility], [address] [place] [address], [address], [place], [address], 08:22:13 HIV 1+2 AB + HIV 1 p24 Ag, qualit ative immuno assay, serum 2020 [facility], [address], [facility] [address], [place], [address], 08:22:14 HSV 2 IgG Ab, QN, IA, serum 2020 [facility]), Patient Can Go To The Location Of Their Choice, 08:22:15 RPR (rapid plasma reagin ), serum 2020 [facility] (Centralized Electronic Ordering - All Locations), Patient Can Go To The Location Of Their Choice, 08:22:13 bacter ial vagino sis panel, vagina l 2020 [facility] (Centralized Electronic Ordering - All Locations), Patient Can Go To The Location Of Their Choice, 03:07:08 cultur e, vagina l/rect al, strept ococcu s group B 2020 [facility]), Patient Can Go To The Location Of Their Choice, 03:07:09 urinal ysis comple te, reflex cultur e 2020 [facility], [address], [address], [place], [address], 09:20:42 CBC w/ auto diff 2020 021 [facility], [address], [address], [place], [address], 06:11:12 CMP, serum or plasma 2020 [facility], [address], [address], [place], [address], 06:11:12 lipid panel, serum 2020 021 [facility], [address], [address], [place], [address], 06:11:14 urinal ysis, dipsti ck 2020 [facility], [address], [address], [place], [address], 06:11:13 bacter ial vagino sis panel, vagina l 2020 [facility]), Patient Can Go To The Location Of Their Choice, 09:38:58 cultur e, vagina l/rect al, strept ococcu s group B 2020 021 [facility] (Centralized Electronic Ordering - All Locations), Patient Can Go To The Location Of Their Choice, 09:38:59 SARS CoV 2 RNA (COVID -19), QL, canvas cutter hand-PC R, respir atory specim en - fatigu e, chest pain, body aches, . expose d to pos COVID person . wicho montgomery 2019@ 1200 2019 020 [facility] (Lab), [address] [place], [address], 0 11:06:14 Referral None record ed. Procedures None record ed. Surgeries None record ed. Imaging MAMMO, screen ing, bilate ral 2020 021 [facility] (Imaging), [address] [facility] [address], [place], [address], 1 11:42:04 US, pelvis , comple te - Mass, right of midlin e above the Pfanne nstiel scar 2020 021 [facility] (One Call Scheduling), [address] [place], [address], 13:21:30 Medication Orders multiv itamin tablet 2020 [facility], [address] [place] [address], [address], 12:47:35 Calciu m with Vitami n D 600 mg-10 mcg (400 unit) tablet [address] [facility] [address], [address] [place] [address], [address], 12:47:37 acyclo vir 800 mg tablet 2020 021 [facility], [address] [place] [address], [address], 11:42:57 flucon azole 150 mg tablet 2020 021 [facility], [address] [place], [address], 15:50:13 metron idazol e 0.75 % (37.5 mg/5 gram) vagina l gel 2020 [facility] [address], [address] [place] [address], [address], 15:50:08 multiv itamin tablet 2020 [facility] [address], [address] [place] [address], [address], 11:42:59 Calciu m with Vitami n D 600 mg-10 mcg (400 unit) tablet 2020 [facility], [address] [place] [address], [address], 11:42:45 Patient TargetsNo targets recorded. Patient Instructions Encounter Date Encounter Id Patient Instructions Last Modified By Organization Details Last Modified Time 01/04/2020 [id number] Reviewed the following recommendations: -Stay home and [...] started. [email or web address] Not available 01/04/2020 12:00:36 06/28/2020 [id number] genital herpes: care instructions [email or web address] Not available 06/28/2020 11:42:38 bacterial vaginosis: care instructions mwasserman Not available 06/28/2020 11:42:38 08/25/2020 [id number] Labs US Follow up in 1 week genevieve Not available 08/25/2020 16:16:24 09/06/2020 [id number] body mass index: care instructions oajao Not available 09/06/2020 11:57:48 learning about healthy weight oajao Not available 09/06/2020 11:57:48 Labs Low cholesterol diet Follow up with Dr Martinez Follow up in 6 months [email or web address] Not available 09/06/2020 12:11:50 02/12/2021 [id number] learning about breast cancer screening mwasserman Not available 02/12/2021 12:47:29 Reason for Referral None Reported. Results Created Date Observation Date Name Description Value Unit Range Abnormal Flag Note LastModifiedBy Organization Detail LastModifiedTime 01/05/20 20 01/05/2020 SARS CoV 2 RNA (COVI D-19) , QL, canvas cutter hand-P CR, respi rator y speci men sars - cov - 2 PCR NEGATI VE mL Not Available [facility] (Lab) [address] [place], [address], 01/07/2020 11:06:14 01/05/2001/05/2020 SARS CoV 2 RNA (COVI D-19) , QL, canvas cutter hand-P CR, respi rator y speci men covidcom1 [...] of this test metho d. Not Available [facility] ([facility]) [address] [facility], [place], [address], 01/07/2020 11:06:14 01/05/20 20 01/05/2020 SARS CoV 2 RNA (COVI D-19) , QL, canvas cutter hand-P CR, respi rator y speci men covidcom2 Posit ld resul ts are indic ative of the prese nce of SARS- CoV-2 RNA and do not rule out bacte rial infec tion or co-in fecti on with other virus es. Not Available [facility] (Lab) [address], [place], [address], 01/07/2020 11:06:14 01/05/20 20 01/05/2020 SARS CoV 2 RNA (COVI D-19) , QL, canvas cutter hand-P CR, respi rator y speci men covidcom3 Test resul ts marcelo d be used along with other clini bee obser vatio ns, patie nt histo ry, epide miolo gical infor matio n and labor atory data in makin g the diagn osis. Not Available [facility] (Lab) [address], [place], [address], 01/07/2020 11:06:14 01/05/20 20 01/05/2020 SARS CoV 2 RNA (COVI D-19) , QL, canvas cutter hand-P CR, respi rator y speci men covidcom4 [...] or revok ed soone r. Not Available [facility] (Lab) [address], [place], [address], 01/07/2020 11:06:14 01/05/20 20 01/05/2020 SARS CoV 2 RNA (COVI D-19) , QL, canvas cutter hand-P CR, respi rator y speci men covidcom5 [facility] is certi fied under CLIA- 88 as quali fied to perfo rm high compl exity testi harmony. This testi ng [facility] [place] [address] (CLIA Licen se #14D0 48997 5, CAP #[id number], AU-ID #[id number]). Not Available [facility] (Lab) [address] [place], [address], 01/07/2020 11:06:14 01/05/20 20 01/05/2020 SARS CoV 2 RNA (COVI D-19) , QL, canvas cutter hand-P CR, respi rator y speci men covidcom6 Facts heet for healt hcare provi ders: https ://[employer].MD-IT .gov/ media /0562 56/do wnloa d Facts heet for patie nts: https ://[employer].MD-IT .gov/ media /1362 57/do wnloa d Not Available [facility] (Lab) [address], [place], [address], 01/07/2020 11:06:14 06/28/19 21 07/01/2020 bacte rial vagin osis panel , vagin al hsv 1 DEANDRA Negati ve negati ve Not Available [facility] ([facility]) [address] [place], [address], 07/04/2020 09:38:58 06/28/19 21 07/01/2020 bacte rial vagin osis panel , vagin al hsv 2 DEANDRA Negati ve negati ve Not Available [facility] ([facility]) [address] [place], [address], 07/04/2020 09:38:58 06/28/19 21 07/03/2020 bacte rial vagin osis panel , vagin al atopobium vaginae Low - 0 score Not Available [facility] ([facility]) [address] [place], [address], 07/04/2020 09:38:58 06/28/19 21 07/03/2020 bacte rial vagin osis panel , vagin al bvab 2 Low - 0 score Not Available [facility] ([facility]) [address] [place], [address], 07/04/2020 09:38:58 06/28/19 21 07/03/2020 bacte rial [...] Drug Admin istra tion. Not Available [facility] ([facility]) [address] [place], [address], 07/04/2020 09:38:58 06/28/19 21 07/03/2020 bacte rial vagin osis panel , vagin al yas albicans, DEANDRA Negati ve negati ve Not Available [facility] ([facility]) [address] [place], [address], 07/04/2020 09:38:58 06/28/19 21 07/03/2020 bacte rial vagin osis panel , vagin al yas glabrata, DEANDRA Negati ve negati ve Not Available [facility] ([facility]) [address] [place], [address], 07/04/2020 09:38:58 06/28/19 21 07/04/2020 bacte rial vagin osis panel , vagin al trich vag by DEANDRA Negati ve negati ve Not Available [facility] ([facility]) [address] [facility], [place], [address], 07/04/2020 09:38:58 06/28/19 21 07/04/2020 bacte rial vagin osis panel , vagin al chlamydia trachomatis, DEANDRA Negati ve negati ve Not Available [facility] ([facility]) [address] [facility], [place], [address], 07/04/2020 09:38:58 06/28/1907/04/2020 bacte rial vagin osis panel , vagin al neisseria gonorrhoeae, DEANDRA Negati ve negati ve Not Available [facility] ([facility]) [address] [facility], [place], [address], 07/04/2020 09:38:58 06/28/1906/30/2020 cultu re, vagin al/re ctal, strep tococ [...] n is noted . Not Available [facility] ([facility]) [address] [place], [address], 07/04/2020 09:38:59 08/29/19 21 08/29/2020 CBC w/ auto diff WBC 8.6 x10e3 /uL 3.4-10 .8 Not Available [facility] ([facility]) [address] [place], [address], 08/29/2020 06:11:11 08/29/19 21 08/29/2020 CBC w/ auto diff RBC 4.00 x10e6 /uL 3.77-5 .28 Not Available [facility] ([facility]) [address] [place], [address], 08/29/2020 06:11:11 08/29/19 21 08/29/2020 CBC w/ auto diff hemoglobin 12.3 g/dL 11.1-1 5.9 Not Available [facility] ([facility]) [address] [place], [address], 08/29/2020 06:11:11 08/29/1908/29/2020 CBC w/ auto diff hematocrit 37.7 % 34.0-4 6.6 Not Available [facility] ([facility]) [address] [place], [address], 08/29/2020 06:11:11 08/29/19 21 08/29/2020 CBC w/ auto diff MCV 94 fL 79-97 Not Available [facility] ([facility]) [address] [place], [address], 08/29/2020 06:11:11 08/29/19 21 08/29/2020 CBC w/ auto diff MCH 30.8 pg 26.6-3 3.0 Not Available [facility] ([facility]) [address] [facility], [place], [address], 08/29/2020 06:11:11 08/29/19 21 08/29/2020 CBC w/ auto diff MCHC 32.6 g/dL 31.5-3 5.7 Not Available [facility] ([facility]) [address] [facility], [place], [address], 08/29/2020 06:11:11 08/29/19 21 08/29/2020 CBC w/ auto diff RDW 13.0 % 11.7-1 5.4 Not Available [facility] ([facility]) [address] [facility], [place], [address], 08/29/2020 06:11:11 08/29/19 21 08/29/2020 CBC w/ auto diff platelets 322 x10e3 /uL 150-45 0 Not Available [facility] ([facility]) [address] [facility], [place], [address], 08/29/2020 06:11:11 08/29/19 21 08/29/2020 CBC w/ auto diff neutrophils 64 % not estab. Not Available [facility] ([facility]) [address] [facility], [place], [address], 08/29/2020 06:11:11 08/29/19 21 08/29/2020 CBC w/ auto diff lymphs 29 % not estab. Not Available [facility] ([facility]) [address] [place], [address], 08/29/2020 06:11:11 08/29/19 21 08/29/2020 CBC w/ auto diff monocytes 5 % not estab. Not Available [facility] ([facility]) [address] [facility], [place], [address], 08/29/2020 06:11:11 08/29/19 21 08/29/2020 CBC w/ auto diff eos 2 % not estab. Not Available [facility] ([facility]) [address] [place], [address], 08/29/2020 06:11:11 08/29/19 21 08/29/2020 CBC w/ auto diff basos 0 % not estab. Not Available [facility] ([facility]) [address] [place], [address], 08/29/2020 06:11:11 08/29/19 21 08/29/2020 CBC w/ auto diff immature cells HEARING SCREEN COORDINATOR Not Available [facility] ([facility]) [address] [place], [address], 08/29/2020 06:11:11 08/29/19 21 08/29/2020 CBC w/ auto diff neutrophils (absolute) 5.5 x10e3 /uL 1.4-7. 0 Not Available [facility] ([facility]) [address] [place], [address], 08/29/2020 06:11:11 08/29/19 21 08/29/2020 CBC w/ auto diff lymphs (absolute) 2.5 x10e3 /uL 0.7-3. 1 Not Available [facility] ([facility]) [address] [place], [address], 08/29/2020 06:11:11 08/29/19 21 08/29/2020 CBC w/ auto diff monocytes(ab solute) 0.4 x10e3 /uL 0.1-0. 9 Not Available [facility] ([facility]) [address] [place], [address], 08/29/2020 06:11:11 08/29/19 21 08/29/2020 CBC w/ auto diff eos (absolute) 0.2 x10e3 /uL 0.0-0. 4 Not Available [facility] ([facility]) [address] [facility], [place], [address], 08/29/2020 06:11:11 08/29/19 21 08/29/2020 CBC w/ auto diff baso (absolute) 0.0 x10e3 /uL 0.0-0. 2 Not Available [facility] ([facility]) [address] [facility], [place], [address], 08/29/2020 06:11:11 08/29/19 21 08/29/2020 CBC w/ auto diff immature granulocytes 0 % not estab. Not Available [facility] ([facility]) [address] [facility], [place], [address], 08/29/2020 06:11:11 08/29/19 21 08/29/2020 CBC w/ auto diff immature grans (abs) 0.0 x10e3 /uL 0.0-0. 1 Not Available [facility] ([facility]) [address] [facility], [place], [address], 08/29/2020 06:11:11 08/29/1908/29/2020 CBC w/ auto diff NRBC HEARING SCREEN COORDINATOR Not Available [facility] ([facility]) [address] [facility], [place], [address], 08/29/2020 06:11:11 08/29/1908/29/2020 CBC w/ auto diff hematology comments: HEARING SCREEN COORDINATOR Not Available [facility] ([facility]) [address] [facility], [place], [address], 08/29/2020 06:11:11 08/29/1908/29/2020 CMP, serum or plasm a glucose 88 mg/dL 65-99 Not Available [facility] ([facility]) [address] [place], [address], 08/29/2020 06:11:12 08/29/19 21 08/29/2020 CMP, serum or plasm a BUN 13 mg/dL 6-20 Not Available [facility] ([facility]) [address] [facility] [place] [place], [address], 08/29/2020 06:11:12 08/29/19 21 08/29/2020 CMP, serum or plasm a creatinine 0.88 mg/dL 0.57-1 .00 Not Available [facility] ([facility]) [address] [facility] [place] [place], [address], 08/29/2020 06:11:12 08/29/19 21 08/29/2020 CMP, serum or plasm a eGFR if nonafricn AM 89 mL/mi n/1.7 3 >59 Not Available [facility] ([facility]) [address] [facility] [place] [place], [address], 08/29/2020 06:11:12 08/29/19 21 08/29/2020 CMP, serum [...] SN Task force . Not Available [facility] ([facility]) [address] [place], [address], 08/29/2020 06:11:12 08/29/1908/29/2020 CMP, serum or plasm a BUN/creatini ne ratio 15 9-23 Not Available [facility] ([facility]) [address] [place], [address], 08/29/2020 06:11:12 08/29/19 21 08/29/2020 CMP, serum or plasm a sodium 141 mmol/ L 134-14 4 Not Available [facility] ([facility]) [address] [place], [address], 08/29/2020 06:11:12 08/29/1908/29/2020 CMP, serum or plasm a potassium 4.3 mmol/ L 3.5-5. 2 Not Available [facility] ([facility]) [address] [place], [address], 08/29/2020 06:11:12 08/29/1908/29/2020 CMP, serum or plasm a chloride 104 mmol/ L 96-106 Not Available [facility] ([facility]) [address] [place], [address], 08/29/2020 06:11:12 08/29/1908/29/2020 CMP, serum or plasm a carbon dioxide, total 25 mmol/ L 20-29 Not Available [facility] ([facility]) [address] [place], [address], 08/29/2020 06:11:12 08/29/1908/29/2020 CMP, serum or plasm a calcium 9.4 mg/dL 8.7-10 .2 Not Available [facility] ([facility]) [address] [place], [address], 08/29/2020 06:11:12 08/29/1908/29/2020 CMP, serum or plasm a protein, total 8.0 g/dL 6.0-8. 5 Not Available [facility] ([facility]) [address] [place], [address], 08/29/2020 06:11:12 08/29/1908/29/2020 CMP, serum or plasm a albumin 3.9 g/dL 3.9-5. 0 Not Available [facility] ([facility]) [address] [place], [address], 08/29/2020 06:11:12 08/29/1908/29/2020 CMP, serum or plasm a globulin, total 4.1 g/dL 1.5-4. 5 Not Available [facility] ([facility]) [address] [place], [address], 08/29/2020 06:11:12 08/29/1908/29/2020 CMP, serum or plasm a A/G ratio 1.0 1.2-2. 2 below low normal Not Available [facility] ([facility]) [address] [place], [address], 08/29/2020 06:11:12 08/29/1908/29/2020 CMP, serum or plasm a bilirubin, total 0.4 mg/dL 0.0-1. 2 Not Available [facility] ([facility]) [address] [place], [address], 08/29/2020 06:11:12 08/29/1908/29/2020 CMP, serum or plasm a alkaline phosphatase 62 IU/L 39-117 Not Available [facility] ([facility]) [address] [place], [address], 08/29/2020 06:11:12 08/29/1908/29/2020 CMP, serum or plasm a AST (SGOT) 12 IU/L 0-40 Not Available [facility] ([facility]) [address] [place], [address], 08/29/2020 06:11:12 08/29/1908/29/2020 CMP, serum or plasm a ALT (SGPT) 4 IU/L 0-32 Not Available [facility] ([facility]) [address] [place], [address], 08/29/2020 06:11:12 08/29/1908/29/2020 urina lysis , dipst ick specific gravity 1.025 1.005- 1.030 Not Available [facility] ([facility]) [address] [place], [address], 08/29/2020 06:11:13 08/29/19 21 08/29/2020 urina lysis , dipst ick pH 6.0 5.0-7. 5 Not Available [facility] ([facility]) [address] [place], [address], 08/29/2020 06:11:13 08/29/19 21 08/29/2020 urina lysis , dipst ick urine-color YELLOW yellow Not Available [facility] ([facility]) [address] [place], [address], 08/29/2020 06:11:13 08/29/19 21 08/29/2020 urina lysis , dipst ick appearance CLEAR clear Not Available [facility] ([facility]) [address] [place], [address], 08/29/2020 06:11:13 08/29/19 21 08/29/2020 urina lysis , dipst ick WBC esterase NEGATI VE negati ve Not Available [facility] ([facility]) [address] [place], [address], 08/29/2020 06:11:13 08/29/1908/29/2020 urina lysis , dipst ick protein 1+ negati ve/tra ce abnormal Not Available [facility] ([facility]) [address] [place], [address], 08/29/2020 06:11:13 08/29/1908/29/2020 urina lysis , dipst ick glucose NEGATI VE negati ve Not Available [facility] ([facility]) [address] [place], [address], 08/29/2020 06:11:13 08/29/19 21 08/29/2020 urina lysis , dipst ick ketones NEGATI VE negati ve Not Available [facility] ([facility]) [address] [place], [address], 08/29/2020 06:11:13 08/29/1908/29/2020 urina lysis , dipst ick occult blood NEGATI VE negati ve Not Available [facility] ([facility]) [address] [place], [address], 08/29/2020 06:11:13 08/29/19 21 08/29/2020 urina lysis , dipst ick bilirubin NEGATI VE negati ve Not Available [facility] ([facility]) [address] [place], [address], 08/29/2020 06:11:13 08/29/19 21 08/29/2020 urina lysis , dipst ick urobilinogen ,semi-qn 0.2 mg/dL 0.2-1. 0 Not Available [facility] ([facility]) [address] [place], [address], 08/29/2020 06:11:13 08/29/1908/29/2020 urina lysis , dipst ick nitrite, urine NEGATI VE negati ve Not Available [facility] ([facility]) [address] [place], [address], 08/29/2020 06:11:13 08/29/1908/29/2020 urina lysis , dipst ick microscopic examination SEE BELOW: Micro scopi c was indic ated and was perfo rmed. Not Available [facility] ([facility]) [address] [place], [address], 08/29/2020 06:11:13 08/29/1908/29/2020 urina lysis , dipst ick WBC NONE SEEN /hpf 0 - 5 Not Available [facility] ([facility]) [address] [place], [address], 08/29/2020 06:11:13 08/29/19 21 08/29/2020 urina lysis , dipst ick RBC 3-10 /hpf 0 - 2 abnormal Not Available [facility] ([facility]) [address] [facility], [place], [address], 08/29/2020 06:11:13 08/29/19 21 08/29/2020 urina lysis , dipst ick epithelial cells (non renal) >10 /hpf 0 - 10 abnormal Not Available [facility] ([facility]) [address] [facility], [place], [address], 08/29/2020 06:11:13 08/29/19 21 08/29/2020 urina lysis , dipst ick epithelial cells (renal) HEARING SCREEN COORDINATOR Not Available [facility] ([facility]) [address] [facility], [place], [address], 08/29/2020 06:11:13 08/29/19 21 08/29/2020 urina lysis , dipst ick casts NONE SEEN /lpf none seen Not Available [facility] ([facility]) [address] [facility], [place], [address], 08/29/2020 06:11:13 08/29/19 21 08/29/2020 urina lysis , dipst ick cast type HEARING SCREEN COORDINATOR Not Available [facility] ([facility]) [address] [facility], [place], [address], 08/29/2020 06:11:13 08/29/19 21 08/29/2020 urina lysis , dipst ick crystals HEARING SCREEN COORDINATOR Not Available [facility] ([facility]) [address] [place], [address], 08/29/2020 06:11:13 08/29/19 21 08/29/2020 urina lysis , dipst ick crystal type HEARING SCREEN COORDINATOR Not Available [facility] ([facility]) [address] [place], [address], 08/29/2020 06:11:13 08/29/19 21 08/29/2020 urina lysis , dipst ick mucus threads HEARING SCREEN COORDINATOR Not Available [facility] ([facility]) [address] [facility], [place], [address], 08/29/2020 06:11:13 08/29/19 21 08/29/2020 urina lysis , dipst ick bacteria FEW none seen/f ew Not Available [facility] ([facility]) [address] [facility], [place], [address], 08/29/2020 06:11:13 08/29/19 21 08/29/2020 urina lysis , dipst ick yeast HEARING SCREEN COORDINATOR Not Available [facility] ([facility]) [address] [facility], [place], [address], 08/29/2020 06:11:13 08/29/19 21 08/29/2020 urina lysis , dipst ick trichomonas HEARING SCREEN COORDINATOR Not Available [facility] ([facility]) [address] [facility], [place], [address], 08/29/2020 06:11:13 08/29/19 21 08/29/2020 urina lysis , dipst ick comment HEARING SCREEN COORDINATOR Not Available [facility] ([facility]) [address] [facility], [place], [address], 08/29/2020 06:11:13 08/29/19 21 08/29/2020 lipid panel , serum cholesterol, total 183 mg/dL 100-19 9 Not Available [facility] ([facility]) [address] [facility], [place], [address], 08/29/2020 06:11:14 08/29/19 21 08/29/2020 lipid panel , serum triglyceride s 80 mg/dL 0-149 Not Available [facility] ([facility]) [address] [place], [address], 08/29/2020 06:11:14 08/29/19 21 08/29/2020 lipid panel , serum HDL cholesterol 67 mg/dL >39 Not Available [facility] ([facility]) [address] [facility], [place], [address], 08/29/2020 06:11:14 08/29/19 21 08/29/2020 lipid panel , serum VLDL cholesterol bee 15 mg/dL 5-40 Not Available [facility] ([facility]) [address] [facility], [place], [address], 08/29/2020 06:11:14 08/29/19 21 08/29/2020 lipid panel , serum LDL chol calc ([facility]) 101 mg/dL 0-99 above high normal Not Available [facility] ([facility]) [address] [facility], [place], [address], 08/29/2020 06:11:14 08/29/19 21 08/29/2020 lipid panel , serum comment: HEARING SCREEN COORDINATOR Not Available [facility] ([facility]) [address] [facility], [place], [address], 08/29/2020 06:11:14 09/07/19 21 09/07/2020 urina lysis compl ete, refle x cultu re specific gravity 1.024 1.005- 1.030 Not Available [facility] ([facility]) [address] [place], [address], 09/08/2020 09:20:42 09/07/19 21 09/07/2020 urina lysis compl ete, refle x cultu re pH 5.5 5.0-7. 5 Not Available [facility] ([facility]) [address] [place], [address], 09/08/2020 09:20:42 09/07/19 21 09/07/2020 urina lysis compl ete, refle x cultu re urine-color Yellow yellow Not Available [facility] ([facility]) [address] [place], [address], 09/08/2020 09:20:42 09/07/19 21 09/07/2020 urina lysis compl ete, refle x cultu re appearance Clear clear Not Available [facility] ([facility]) [address] [place], [address], 09/08/2020 09:20:42 09/07/19 21 09/07/2020 urina lysis compl ete, refle x cultu re WBC esterase Trace negati ve abnormal Not Available [facility] ([facility]) [address] [place], [address], 09/08/2020 09:20:42 09/07/19 21 09/07/2020 urina lysis compl ete, refle x cultu re protein 2+ negati ve/tra ce abnormal Not Available [facility] ([facility]) [address] [place], [address], 09/08/2020 09:20:42 09/07/19 21 09/07/2020 urina lysis compl ete, refle x cultu re glucose Negati ve negati ve Not Available [facility] ([facility]) [address] [place], [address], 09/08/2020 09:20:42 09/07/19 21 09/07/2020 urina lysis compl ete, refle x cultu re ketones Negati ve negati ve Not Available [facility] ([facility]) [address] [place], [address], 09/08/2020 09:20:42 09/07/19 21 09/07/2020 urina lysis compl ete, refle x cultu re occult blood Trace negati ve abnormal Not Available [facility] ([facility]) [address] [place], [address], 09/08/2020 09:20:42 09/07/19 21 09/07/2020 urina lysis compl ete, refle x cultu re bilirubin Negati ve negati ve Not Available [facility] ([facility]) [address] [place], [address], 09/08/2020 09:20:42 09/07/19 21 09/07/2020 urina lysis compl ete, refle x cultu re urobilinogen ,semi-qn 0.2 mg/dL 0.2-1. 0 Not Available [facility] ([facility]) [address] [place], [address], 09/08/2020 09:20:42 09/07/19 21 09/07/2020 urina lysis compl ete, refle x cultu re nitrite, urine Negati ve negati ve Not Available [facility] ([facility]) [address] [place], [address], 09/08/2020 09:20:42 09/07/19 21 09/07/2020 urina lysis compl ete, refle x cultu re microscopic examination See below: Micro scopi c was indic ated and was perfo rmed. Not Available [facility] ([facility]) [address] [place], [address], 09/08/2020 09:20:42 09/07/19 21 09/07/2020 urina lysis compl ete, refle x cultu re WBC 0-5 /hpf 0 - 5 Not Available [facility] ([facility]) [address] [place], [address], 09/08/2020 09:20:42 09/07/19 21 09/07/2020 urina lysis compl ete, refle x cultu re RBC 3-10 /hpf 0 - 2 abnormal Not Available [facility] ([facility]) [address] [place], [address], 09/08/2020 09:20:42 09/07/19 21 09/07/2020 urina lysis compl ete, refle x cultu re epithelial cells (non renal) >10 /hpf 0 - 10 abnormal Not Available [facility] ([facility]) [address] [facility], [place], [address], 09/08/2020 09:20:42 09/07/19 21 09/07/2020 urina lysis compl ete, refle x cultu re epithelial cells (renal) HEARING SCREEN COORDINATOR Not Available [facility] ([facility]) [address] [place], [address], 09/08/2020 09:20:42 09/07/19 21 09/07/2020 urina lysis compl ete, refle x cultu re casts None seen /lpf none seen Not Available [facility] ([facility]) [address] [place], [address], 09/08/2020 09:20:42 09/07/19 21 09/07/2020 urina lysis compl ete, refle x cultu re cast type HEARING SCREEN COORDINATOR Not Available [facility] ([facility]) [address] [place], [address], 09/08/2020 09:20:42 09/07/19 21 09/07/2020 urina lysis compl ete, refle x cultu re crystals HEARING SCREEN COORDINATOR Not Available [facility] ([facility]) [address] [place], [address], 09/08/2020 09:20:42 09/07/19 21 09/07/2020 urina lysis compl ete, refle x cultu re crystal type HEARING SCREEN COORDINATOR Not Available [facility] ([facility]) [address] [place], [address], 09/08/2020 09:20:42 09/07/19 21 09/07/2020 urina lysis compl ete, refle x cultu re mucus threads HEARING SCREEN COORDINATOR Not Available [facility] ([facility]) [address] [facility], [place], [address], 09/08/2020 09:20:42 09/07/19 21 09/07/2020 urina lysis compl ete, refle x cultu re bacteria Many none seen/f ew abnormal Not Available [facility] ([facility]) [address] [facility], [place], [address], 09/08/2020 09:20:42 09/07/19 21 09/07/2020 urina lysis compl ete, refle x cultu re yeast HEARING SCREEN COORDINATOR Not Available [facility] ([facility]) [address] [facility], [place], [address], 09/08/2020 09:20:42 09/07/19 21 09/07/2020 urina lysis compl ete, refle x cultu re trichomonas HEARING SCREEN COORDINATOR Not Available [facility] ([facility]) [address] [facility], [place], [address], 09/08/2020 09:20:42 09/07/19 21 09/07/2020 urina lysis compl ete, refle x cultu re comment HEARING SCREEN COORDINATOR Not Available [facility] ([facility]) [address] [place], [address], 09/08/2020 09:20:42 09/07/19 21 09/07/2020 urina lysis compl ete, refle x cultu re urinalysis reflex Commen t This speci men has refle xed to a Urine Cultu re. Not Available [facility] ([facility]) [address] [place], [address], 09/08/2020 09:20:42 09/07/19 21 09/08/2020 urina lysis compl ete, refle x cultu re urine culture, routine Final report Not Available [facility] ([facility]) [address] [place], [address], 09/08/2020 09:20:42 09/07/19 21 09/08/2020 urina lysis compl ete, refle x cultu re result 1 Lactob acillu s specie s 25,00 0-50, 000 colon y formi ng units per mL Susce ptibi lity not maryjo lly perfo rmed on this organ ism. Not Available [facility] ([facility]) [address] [facility], [place], [address], 09/08/2020 09:20:42 02/13/20 21 02/14/2021 IGP, APTIM A HPV diagnosis: Deborah ROCA FOR INTRA EPITH ELIAL LESIO N OR KAYLA REYES . Not Available [facility] ([facility]) [address] [place], [address], 02/14/2021 16:11:48 02/13/20 21 02/14/2021 IGP, APTIM A HPV specimen adequacy: Deborah t Satis facto ry for evalu ation . Endoc ervic al and/o r squam ous metap lasti c cells (endo cervi bee compo nent) are prese nt. Not Available [facility] ([facility]) [address] [place], [address], 02/14/2021 16:11:48 02/13/20 21 02/14/2021 IGP, APTIM A HPV clinician provided ICD10: Deborah ramos Z20.2 Z01.4 19 Z11.5 1 Z11.3 Not Available [facility] ([facility]) [address] [place], [address], 02/14/2021 16:11:48 02/13/20 21 02/14/2021 IGP, APTIM A HPV performed by: Deborah t Beata ruiz, Cytot stanislav ramos (ASCP ) Not Available [facility] ([facility]) [address] [place], [address], 02/14/2021 16:11:48 02/13/20 21 02/14/2021 IGP, APTIM A HPV . . Not Available [facility] ([facility]) [address] [facility], [place], [address], 02/14/2021 16:11:48 02/13/20 21 02/14/2021 IGP, APTIM A HPV note: Commen t The Pap smear is a scree [...] ts do occur . Not Available [facility] ([facility]) [address] [facility], [place], [address], 02/14/2021 16:11:48 02/13/2002/14/2021 IGP, APTIM A HPV test methodology: Commen t This liqui d based ThinP rep(R ) pap test was scree jace with the use of an image guide elijah guzman. Not Available [facility] ([facility]) [address] [facility], [place], [address], 02/14/2021 16:11:48 02/13/20 21 02/14/2021 IGP, APTIM A HPV HPV aptima Negati ve negati ve This nucle ic acid ampli ficat ion test detec ts fourt een high- risk HPV types (16,1 8,31, 33,35 ,39,4 5,51, 52,56 ,58,5 9,66, 68) witho ut diffe renti ation . Not Available [facility] ([facility]) [address] [facility], [place], [address], 02/14/2021 16:11:48 02/13/2002/13/2021 NUSWA B VG+, HSV atopobium vaginae Low - 0 score Not Available [facility] ([facility]) [address] [facility], [place], [address], 02/20/2021 03:07:08 02/13/20 21 02/13/2021 NUSWA B VG+, HSV bvab 2 Low - 0 score Not Available [facility] ([facility]) [address] [facility], [place], [address], 02/20/2021 03:07:08 02/13/2002/13/2021 NUA B VG+, HSV megasphaera 1 Low - 0 score Calcu late total score by mari g the 3 indiv idual bacte rial vagin [...] Drug Admin istra tion. Not Available [facility] ([facility]) [address] [facility], [place], [address], 02/20/2021 03:07:08 02/13/2002/13/2021 NUSWA B VG+, HSV yas albicans, DEANDRA Negati ve negati ve Not Available [facility] ([facility]) [address] [facility], [place], [address], 02/20/2021 03:07:08 02/13/2002/13/2021 NUSWA B VG+, HSV yas glabrata, DEANDRA Negati ve negati ve Not Available [facility] ([facility]) [address] [facility], [place], [address], 02/20/2021 03:07:08 02/13/2002/14/2021 NUSWA B VG+, HSV trich vag by DEANDRA Negati ve negati ve Not Available [facility] ([facility]) [address] [facility], [place], [address], 02/20/2021 03:07:08 02/13/2002/14/2021 NUSWA B VG+, HSV chlamydia trachomatis, DEANDRA Negati ve negati ve Not Available [facility] ([facility]) [address] [facility], [place], [address], 02/20/2021 03:07:08 02/13/2002/14/2021 NUSWA B VG+, HSV neisseria gonorrhoeae, DEANDRA Negati ve negati ve Not Available [facility] ([facility]) [address] [facility], [place], [address], 02/20/2021 03:07:08 02/13/2002/20/2021 NUSWA B VG+, HSV hsv 1 DEANDRA Negati ve negati ve Not Available [facility] ([facility]) [address] [facility], [place], [address], 02/20/2021 03:07:08 02/13/2002/20/2021 NUSWA B VG+, HSV hsv 2 DEANDRA Negati ve negati ve Not Available [facility] ([facility]) [address] [facility], [place], [address], 02/20/2021 03:07:08 02/13/2002/14/2021 STREP GP B DEANDRA [...] n is noted . Not Available [facility] ([facility]) [address] [place], [address], 02/20/2021 03:07:09 04/11/20 21 04/12/2021 CBC, PLATE LET, NO DIFFE RENTI AL WBC 11.4 x10e3 /uL 3.4-10 .8 above high normal Not Available [facility] ([facility]) [address] [place], [address], 04/12/2021 08:22:09 04/11/20 21 04/12/2021 CBC, PLATE LET, NO DIFFE RENTI AL RBC 3.79 x10e6 /uL 3.77-5 .28 Not Available [facility] ([facility]) [address] [place], [address], 04/12/2021 08:22:09 04/11/20 21 04/12/2021 CBC, PLATE LET, NO DIFFE RENTI AL hemoglobin 11.0 g/dL 11.1-1 5.9 below low normal Not Available [facility] ([facility]) [address] [facility], [place], [address], 04/12/2021 08:22:09 04/11/2004/12/2021 CBC, PLATE LET, NO DIFFE RENTI AL hematocrit 33.7 % 34.0-4 6.6 below low normal Not Available [facility] ([facility]) [address] [facility], [place], [address], 04/12/2021 08:22:09 04/11/2004/12/2021 CBC, PLATE LET, NO DIFFE RENTI AL MCV 89 fL 79-97 Not Available [facility] ([facility]) [address] [facility], [place], [address], 04/12/2021 08:22:09 04/11/20 21 04/12/2021 CBC, PLATE LET, NO DIFFE RENTI AL MCH 29.0 pg 26.6-3 3.0 Not Available [facility] ([facility]) [address] [facility], [place], [address], 04/12/2021 08:22:09 04/11/2004/12/2021 CBC, PLATE LET, NO DIFFE RENTI AL MCHC 32.6 g/dL 31.5-3 5.7 Not Available [facility] ([facility]) [address] [place], [address], 04/12/2021 08:22:09 04/11/2004/12/2021 CBC, PLATE LET, NO DIFFE RENTI AL RDW 12.9 % 11.7-1 5.4 Not Available [facility] ([facility]) [address] [place], [address], 04/12/2021 08:22:09 04/11/20 21 04/12/2021 CBC, PLATE LET, NO DIFFE RENTI AL platelets 322 x10e3 /uL 150-45 0 Not Available [facility] ([facility]) [address] [facility], [place], [address], 04/12/2021 08:22:09 04/11/20 21 04/12/2021 CBC, PLATE LET, NO DIFFE RENTI AL NRBC HEARING SCREEN COORDINATOR Not Available [facility] ([facility]) [address] [facility], [place], [address], 04/12/2021 08:22:09 04/11/20 21 04/12/2021 LIPID PANEL WITH LDL/H DL RATIO cholesterol, total 152 mg/dL 100-19 9 Not Available [facility] ([facility]) [address] [facility], [place], [address], 04/12/2021 08:22:10 04/11/20 21 04/12/2021 LIPID PANEL WITH LDL/H DL RATIO triglyceride s 68 mg/dL 0-149 Not Available [facility] ([facility]) [address] [facility], [place], [address], 04/12/2021 08:22:10 04/11/20 21 04/12/2021 LIPID PANEL WITH LDL/H DL RATIO HDL cholesterol 56 mg/dL >39 Not Available [facility] ([facility]) [address] [facility], [place], [address], 04/12/2021 08:22:10 04/11/20 21 04/12/2021 LIPID PANEL WITH LDL/H DL RATIO VLDL cholesterol bee 13 mg/dL 5-40 Not Available [facility] ([facility]) [address] [facility], [place], [address], 04/12/2021 08:22:10 04/11/20 21 04/12/2021 LIPID PANEL WITH LDL/H DL RATIO LDL chol calc ([facility]) 83 mg/dL 0-99 Not Available [facility] ([facility]) [address] [facility], [place], [address], 04/12/2021 08:22:10 04/11/20 21 04/12/2021 LIPID PANEL WITH LDL/H DL RATIO comment: HEARING SCREEN COORDINATOR Not Available [facility] ([facility]) [address] [facility], [place], [address], 04/12/2021 08:22:10 04/11/20 21 04/12/2021 LIPID PANEL WITH LDL/H DL RATIO LDL/HDL ratio 1.5 ratio 0.0-3. 2 LDL/H DL Ratio Men Women 1/2 Avg.R isk 1.0 1.5 Avg.R isk 3.6 3.2 2X Avg.R isk 6.2 5.0 3X Avg.R isk 8.0 6.1 Not Available [facility] ([facility]) [address] [place], [address], 04/12/2021 08:22:10 04/11/20 21 04/12/2021 HEPAT ITIS PANEL (4) hep A Ab, IgM Negati ve negati ve Not Available [facility] ([facility]) [address] [place], [address], 04/12/2021 08:22:11 04/11/20 21 04/12/2021 HEPAT ITIS PANEL (4) HBsAg screen Negati ve negati ve Not Available [facility] ([facility]) [address] [place], [address], 04/12/2021 08:22:11 04/11/20 21 04/12/2021 HEPAT ITIS PANEL (4) hep B core Ab, IgM Negati ve negati ve Not Available [facility] ([facility]) [address] [facility], [place], [address], 04/12/2021 08:22:11 04/11/20 21 04/12/2021 HEPAT ITIS [...] ion test ([id number]). Not Available [facility] ([facility]) [address] [facility], [place], [address], 04/12/2021 08:22:11 04/11/20 21 04/12/2021 HEMOG LOBIN A1C hemoglobin A1C 5.9 % 4.8-5. 6 above high normal Predi abete s: 5.7 - 6.4 Diabe diogo: >6.4 Glyce vamsi contr ol for adult s with diabe idogo: <7.0 Not Available [facility] ([facility]) [address] [facility], [place], [address], 04/12/2021 08:22:12 04/11/20 21 04/12/2021 TSH TSH 0.782 uIU/m L 0.450- 4.500 Not Available [facility] ([facility]) [address] [facility], [place], [address], 04/12/2021 08:22:12 04/11/20 21 04/12/2021 HEP B SURFA CE AB hep B surface Ab, qual Reacti ve Non React ld: Incon siste nt with immun ity, less than 10 mIU/m L React ld: Consi stent with immun ity, great er than 9.9 mIU/m L Not Available [facility] ([facility]) [address] [facility], [place], [address], 04/12/2021 08:22:13 04/11/20 21 04/12/2021 RPR, RFX QN RPR/C ONFIR M TP RPR Non Reacti ve non reacti ve Not Available [facility] ([facility]) [address] [place], [address], 04/12/2021 08:22:13 04/11/20 21 04/12/2021 HIV AG/AB WITH REFLE X HIV screen 4TH generation wrfx Non Reacti ve non reacti ve Not Available [facility] ([facility]) [address] [facility], [place], [address], 04/12/2021 08:22:14 04/11/20 21 04/12/2021 HSV-2 TYPE [...] ana to HSV-2 . Not Available [facility] ([facility]) [address] [facility], [place], [address], 04/12/2021 08:22:15 09/01/19 21 08/31/2020 US, pelvi s, compl ete No observ ation record ed. [facility] ([facility]) [address] [place], [address], 09/06/2020 11:56:26 02/27/20 21 02/26/2021 MAMMO , diagn ostic , digit al, bilat eral No observ ation record ed. [facility] (Mammography) [address], [place], [address], 03/14/2021 10:59:36 05/09/19 22 05/08/2021 US, slade tpebbles teral No observ ation record ed. [facility] [address], [place], [address], 06/22/2021 10:25:57 Result Notes None recorded. Problems Name Problem SNOMED Code Status Onset Date Resolution Date Notes Provider Name and Address Organization Details Recorded Time Bacterial vaginosis 798943912 Active 2016 Ry palacios [place] - [facility] 7 11:16:23 Past history of gestation al diabetes mellitus 322287558 Active 2017 Andra Walters MD Attn: Alistair elizabeth,[address] [place], [address], [place] [facility] 8 15:03:03 Influenza vaccinati on declined 674796378 Active 2017 Andra Walters MD Attn: Accountnancy elizabeth,[address] [place], [address], [place] [facility] 8 15:47:59 Genital herpes simplex 33672125 Active 2018 Ry Martinez null, [place] - [facility] 9 20:20:12 Pelvic mass 73189075 Active 2020 Andra Walters MD Attn: Alistair clara,[address] [place], [address], [place] [facility] 1 11:54:48 Hyperchol esterolem ia 60877091 Active 2020 Andra Walters MD Attn: Kimnancy elizabeth,[address] [facility], [place], [address], [place] [facility] 1 11:57:00 Mammograp hy assessmen t (Category 0) - Need additiona l imaging evaluatio n 736278728 Active 2020 Ry Martinez [place], [place] - [facility] 1 14:29:23 Vaginitis 73695148 Active Donita Haleyer null[place] - [facility] 8 10:20:23 Premature delivery 690011152 Active 2 times Saurav Dasilva MD Attn: Accountnancy elizabeth,[address] [place], [address], [place] [facility] 5 16:36:45 Vaginitis 00634846 Completed Donita Santo [place] - [facility] 8 10:20:23 Candidias is of vagina 47755823 Active 2016 Debby Buckley [place] null, [place] - [facility] 7 13:26:05 Group B Streptoco ccus carrier 044222096367 3 Active 2016 Debby Buckley MA philip, [facility] 7 13:27:16 Problem Notes None recorded. Procedures Surgical History Date Name Laterality Status Provider Name and Address Organization Details Recorded Time Date of Last Pap Smear completed Flor Bey MA [facility] 02/12/2021 12:38:48 9 Control Implant Removal completed Ry Martinez [facility] 10/07/2018 11:08:49 0 Caesarean Section completed Debby Buckley MA [facility] 02/20/2017 12:11:48 Imaging Results Imaging Date Name Status LastModified by Organiz ation Details LastModified Time 08/31/2020 US, pelvis, complete completed [facility] ([facility]) [address] [place], [address], 09/06/2020 11:56:26 02/26/2021 MAMMO, diagnostic, digital, bilateral completed [facility] (Mammography) [address], [place], [address], 03/14/2021 10:59:36 05/08/2021 US, breast, unilateral completed [facility] [address] [facility] [address], [place], [address], 06/22/2021 10:25:57 Procedure Notes None recorded. Medical [...] Updated DateTime 06/28/2020 157.48 cm 30.2 kg/m2 12618.74 g Flor Bey MA [facility] 06/28/2020 11:32:29 Date Recorded Body height Body mass index (BMI) Body weight Heart rate Respiratory rate Body temperature Systolic blood pressure Diastolic blood pressure Provider Name and Address Organization Details Last Updated DateTime 1 157.48 cm 31.1 kg/m2 94148.7 g 80 /min 14 /min 98 [degF] 114 mm[Hg] 82 mm[Hg] Gillian Amaya MA [facility] 15:53:31 Date Recorded Body height Body mass index (BMI) Body weight Respiratory rate Heart rate Body temperature Systolic blood pressure Diastolic blood pressure Provider Name and Address Organization Details Last Updated DateTime 1 157.48 cm 30.7 kg/m2 65638.5 2 g 12 /min 76 /min 98 [degF] 116 mm[Hg] 80 mm[Hg] Gillian Amaya MA [facility] 11:52:06 Date Recorded Body height Body mass index (BMI) Body weight Systolic blood pressure Diastolic blood pressure Provider Name and Address Organization Details Last Updated DateTime 02/12/2021 157.48 cm 30.7 kg/m2 78752.52 g 104 mm[Hg] 64 mm[Hg] Flor Bey MA [facility] 12:43:04 Social History Question Answer Notes LastModified by Organizat ion Details LastModified Time Tobacco Smoking Status Never Smoker Lilliam Martinez MA null, [facility] 10/18/2014 16:22:29 Do You Have An Advance Directive? No [email or web address] Information not available 02/20/2017 Are You Blind Or Do You Have Difficulty Seeing? No Information not available 08/25/2020 Is Blood Transfusion Acceptable In An Emergency? Yes [email or web address] Information not available 02/20/2017 What Is Your Level Of Caffeine Consumption? Moderate Tea [email or web address] Information not available 02/20/2017 How Much Tobacco Do You Chew? None [email or web address] Information not available 02/20/2017 In The 14 Days Before Symptom Onset, Have You Had Close Contact With A Laboratory-confir med COVID-19 While That Case Was Ill? No Information not available 08/25/2020 Have You Been To An Area Known To Be High Risk For COVID-19? Yes Information not available 08/25/2020 Are You Deaf Or Do You Have Serious Difficulty Hearing? No Information not available 08/25/2020 What Type Of Diet Are You Following? REGULAR [email or web address] Information not available 02/20/2017 Which Illicit Or Recreational Drugs Have You Used? Denies [email or web address] Information not available 02/20/2017 Education 2 Year College [email or web address] Information not available 02/20/2017 Are There Any Guns Present In Your Home? No Information not available 08/25/2020 Live Alone Or With Others? With Others Information not available 02/20/2017 What Was The Date Of Your Most Recent Tobacco Screening? 09/06/2020 Information not available 09/06/2020 How Many Children Do You Have? 2 [email or web address] Information not available 02/20/2017 Performs Monthly Self-breast Exam? Yes [email or web address] Information no t available 02/20/2017 What Is Your Relationship Status? Single Information not available 02/20/2017 Do You Use Your Seat Belt Or Car Seat Routinely? Yes [email or web address] Information not available 06/28/2020 Seat Belts Used Routinely Yes [email or web address] Information not available 02/20/2017 Are You Sexually Active? Yes [email or web address] Information not available 02/20/2017 Do You Have Smoke And Carbon Monoxide Detectors In Your Home? Yes Information not available 08/25/2020 How Much Tobacco Do You Smoke? No [email or web address] Information not available 02/20/2017 General Stress Level Low [email or web address] Information not available 03/11/2017 Do You Use Sunscreen Routinely? No [email or web address] Information not available 02/20/2017 Has Tobacco Cessation Counseling Been Provided? Yes Information not available 09/06/2020 On What Date Was Tobacco Cessation Counseling Provided? 09/06/2020 Information not available 09/06/2020 How Many Years Have You Smoked Tobacco? 0 [email or web address] Information not available 02/20/2017 Sex: Female Functional Status Question Answer Note LastModified by Organizat ion Details LastModified Time Do you use any illicit or recreational drugs? No Information not available 08/25/2020 Do you or have you ever used any other forms of tobacco or nicotine? No Information not available 09/06/2020 What is your level of alcohol consumption? None [email or web address] Information not available 02/20/2017 Are you currently employed? Yes [email or web address] Information not available 02/20/2017 Are you able to care for yourself? Yes Information not available 08/25/2020 What is your occupation? [employer] [email or web address] Information not available 02/20/2017 What is your exercise level? Occasional [email or web address] Information not available 02/20/2017 Mental Status None recorded. Family History Relationship Description Onset Age of this Age Resolved Age Notes LastModified by Organization Details LastModified Time Mother Hypertensive disorder [email or web address] Not available 02/20 12:09:42 Maternal Grandmother Hypertensive disorder [email or web address] Not available 02/20 12:09:42 Maternal Uncle Hypertensive disorder [email or web address] Not available 02/20 12:09:42 Maternal Aunt Hypertensive disorder Not available 02/20 12:09:42 Medical History Condition Response Coronary Artery Disease N Kidney Cyst N Blood Diseases N Hyperthyroidism N Blood Transfusion N MRSA N Blood disorders N Emphysema N Blood Clots N COPD N Depression N Pneumonia N Premature N Peripheral Arterial Disease N Edema N TIA N Headaches/Migraines N Anxiety Disorder N Obesity N Infertility N Polyps N Acid Reflux (GERD) N Hematuria N [...] N Thyroid Disease N Colon Cancer N Glaucoma N Lung Disease N Developmental or Behavioral Disorders N Bipolar N Pacemaker N Diverticulitis/Diverticulosis N Anesthesia Complications N Orthopedic Problems N Orthotics N Head Injury/Concussion N Congenital Anomalies N Damon Bite N Chronic Kidney Disease N Endometriosis N Liver Disease N Dialysis N Schizophrenia N Speech Delay N Chronic Obstructive Pulmonary Disease N Parkinson's Disease N Thyroid Problems N Developmental Delay N GI Problems N Anemia N Immune System Disorder N Multiple Sclerosis N Colon Polyps N Heart Attack (NV) N Diabetes N Cardiomyopathy N Blood Transfusions [...] virus, quadrivalent, preservative 7 completed Not Available [facility] 05/22/2019 02:45:30 HPV9 8 completed Not Available [facility] 05/22/2019 02:39:19 HPV9 8 completed Not Available [facility] 05/22/2019 02:49:08 Tdap 8 completed Not Available [facility] 05/22/2019 02:51:07 Hep A-Hep B 8 completed Not Available [facility] 05/22/2019 02:42:37 HPV9 8 completed Not Available [facility] 05/22/2019 02:36:23 Hep A-Hep B 8 completed Not Available [facility] 05/22/2019 02:47:53 Influenza, split virus, quadrivalent, preservative 5 completed Not Available [facility] 05/22/2019 02:40:54 Past Encounters Encounter ID Performer Location Encounter Start Date Encounter Closed Date Diagnosis/Indication Diagnosis SNOMED-CT Code Diagnosis ICD10 Code Diagnosis Note [id number] Saurav Dasilva MD [facility] (STATION INSPECTOR) [address] [place] [address] 10/18/2014 15:46:03 10/18/2014 17:36:07 Gynecologic examination 58779748 Vaginitis 77391913 [id number] Saurav Dasilva MD [facility] (STATION INSPECTOR) [address] [place] [address] 12/27/2014 15:36:43 12/27/2014 16:15:21 Vaginitis 43464097 Normal [id number] Saurav Dasilva MD [facility] (STATION INSPECTOR) [address] [place] [address] 01/18/2015 14:05:57 01/18/2015 16:38:26 Normal [id number] Saurav Dasilva MD [facility] (STATION INSPECTOR) [address] [place] [address] 02/10/2015 15:57:22 02/10/2015 17:09:09 Normal 39854393 Z33.1 Vaginitis 03130624 N76.0 [id number] Milan Owen DO [facility] (STATION INSPECTOR) [address] [place] [address] 03/03/2015 10:29:00 03/07/2015 13:52:29 High risk due to history of labor 116160413 O09.219 Gestation period, 15 weeks 9512700 Z3A.15 [id number] MD Alden So (STATION INSPECTOR) [address] [place] [address] 02/20/2017 10:27:40 02/20/2017 13:51:17 Gynecologic examination 75998351 Z01.419 Z11.51 Exposure t o sexually transmissible disorder 513487629 Z20.2 Administra tion of influenza vaccine 89107158 Z23 Family andrea ing surveillance 519397618 Z30.09 currently taking daily multivitam in [facility] Surveillan ce of contraception 325542976 Z30.40 nexplanon in right arm palpable, full ROM, and without any neuromuscu lar abnormalit ies [id number] MD Alden So (STATION INSPECTOR) [address] [place] [address] 03/11/2017 15:09:31 03/12/2017 14:46:21 Bacterial vaginosis 308800150 N76.0 Exposure t o sexually transmissible disorder 894574084 Z20.2 Family andrea nning surveillance 954303461 Z30.09 currently taking daily multivitam in [facility] [id number] MD Alden So (STATION INSPECTOR) [address] [place] [address] 07/14/2017 10:28:00 07/14/2017 11:49:36 Active or passive immunization 896256108 Z23 Fasciitis 52648447 M72.9 oblique - patient instructed to get up on opposite side of bed. Family andrea nning surveillance 318093818 Z30.09 Surveillan ce of contraception 118863399 Z30.40 nexplanon in right arm palpable, full ROM, and without any neuromuscu lar abnormalit ies [id number] MD Alden So (STATION INSPECTOR) [address] [place] [address] 09/19/2017 11:31:32 09/19/2017 15:10:28 Active or passive immunization 852252739 Z23 [id number] MD Alden Amador (Adult Med) [address] [place] [address] 01/07/2018 14:22:34 01/07/2018 15:18:33 History and physical examination, school 39344931 Z02.0 Antibody measurement 352 7003 Z01.84 Administra tion of diphtheria, pertussis, and tetanus vaccine 270509511 Z23 Past pregn yomi history of gestational diabetes mellitus 744986695 Z86.32 Tuberculos is screening 075521700 Z11.1 Requires c ourse of hepatitis B vaccination 423613006 Z23 Requires a hepatitis A vaccination 892206189 Z28.3 Immunization refused 275 509996 Z28.20 She has refused the Influenza vaccine Visual impairment 051889 003 H54.7 Addendum [id number] MD Alden So (STATION INSPECTOR) [address] [place] [address] 02/04/2018 10:50:49 02/04/2018 13:57:15 Gynecologic examination 61522567 Z01.419 Z11.51 Exposure t o sexually transmissible disorder 822635794 Z20.2 Bacterial vaginosis 4197 09321 N76.0 Active or passive immunization 198695366 Z23 [id number] MD Alden Amador (Adult Med) [address] [place] [address] 02/05/2018 15:07:05 02/11/2018 11:56:51 Impaired fasting glycemia 992538522 R73.01 Tuberculos is screening 109105185 Z11.1 Requires a hepatitis A vaccination 213704615 Z28.3 Requires c ourse of hepatitis B vaccination 144451800 Z23 Influenza vaccination declined 643204728 Z28.21 [id number] MD Alden Amador (Adult Med) [address] [place] [address] 02/06/2018 14:55:55 02/09/2018 10:12:53 [id number] MD Alden Amador (Adult Med) [address] [place] [address] 02/27/2018 14:27:29 03/02/2018 09:40:38 Tuberculosis screening 350410330 Z11.1 [id number] MD Alden So (STATION INSPECTOR) [address] [place] [address] 03/25/2018 15:21:36 03/27/2018 16:26:50 Exposure to sexually transmissible disorder 162712692 Z20.2 Subcutaneo us contraceptive implant palpable 788184386 Z30.46 Bacterial vaginosis [address] reptococcus carrier 0974807768 103 Z22.330 Candidiasis of vagina 72 990486 B37.3 Family andrea nning surveillance 562461596 Z30.09 [id number] MD Alden Amador (Adult Med) [address] [place] [address] 05/12/2018 15:34:29 05/13/2018 08:48:46 Environmental allergy 515703663 T78.49XA Influenza vaccination declined 760794986 Z28.21 [id number] [facility] [address] [place] [address] 07/06/2018 14:47:52 07/06/2018 17:22:31 Gynecologic examination 89539017 Z01.419 Z11.51 Exposure t o sexually transmissible disorder 846990886 Z20.2 Bacterial vaginosis 4197 49646 N76.0 Candidiasis of vagina [address] reptococcus carrier 0101417807 103 Z22.123 [id number] [facility] [address] [place] [address] 10/07/2018 10:13:34 10/09/2018 09:06:33 Removal of subcutaneous contraceptive done 0112336823 34972 Z30.46 Risk of ex posure to communicable disease 735864510 Z20.9 Family andrea nning surveillance 743599852 Z30.09 [id number] [facility] [address] [place] [address] 09/15/2019 09:12:52 09/16/2019 09:26:53 Bacterial vaginosis 451874450 N76.0 Genital he rpes simplex 38751257 A60.9 Candidiasis of vagina 72 444071 B37.3 Family andrea nning surveillance 801537720 Z30.09 [id number] MD John Encarnacion [address] [place] [address] 09/17/2019 11:09:59 09/20/2019 13:42:14 Suspected COVID-19 077517890 Z03.711 [id number] SOFIA Rahmania [address] [place] [address] 01/04/2020 09:41:20 01/05/2020 13:57:48 Suspected COVID-19 578372326 Z03.818 D/w pt the current pandemic of COVID-19 and call for social isolation in order to blunt the curve and minimize risk and spread. Encouraged patient and family to take restrictio ns seriously. They have verbalized understand ing of such. Viral syndrome 080181624 B34.9 [id number] MD Alden So (STATION INSPECTOR) [address] [place] [address] 06/28/2020 07:56:02 07/03/2020 11:17:43 Family planning surveillance 132687213 Z30.09 Vaginitis 18806592 N76.0 odor Bacterial vaginosis [address] reptococcus carrier 3308166224 103 Z22.330 Genital he rpes simplex 71653221 A60.9 [id number] MD Alden Amador (Adult Med) [address] [place] [address] 0 08/25/2020 15:43:18 08/28/2020 08:02:56 General examination of patient 227568521 Z00.01 Pelvic mass 19792210 R19 .00 Mass, right of midline above the Pfannensti el scar Stitch granuloma? Lipoma? US Vaccine de clined by patient 4433255308 02 Z28.21 [id number] MD Alden Amador (Adult Med) [address] [place] [address] 09/06/2020 11:46:42 09/07/2020 08:10:01 Pelvic mass 69612638 R19.00 Mass, right of midline above the Pfannensti el scar Stitch granuloma? The US from 08/31/2020 was abnormal but not diagnostic . The recommenda tion is that a repeat US be done in 6 months. However, she will be seen by the gynecologi st on 09/27/2020 Discussed in detail Hypercholesterolemia 136 39418 E78.00 Abnormal urinalysis 1672 69989 R82.90 Body mass index 30+ - obesity 726074007 Z68.30 [id number] MD Alden So (STATION INSPECTOR) [address] [place] [address] 02/12/2021 12:24:37 02/15/2021 14:09:39 Group B Streptococcus carrier 6994621165 103 Z22.330 Exposure t o sexually transmissible disorder 172735803 Z20.2 Gynecologi c examination 79759905 Z01.419 Z11.51 Screening for malignant neoplasm of breast 850669429 Z12.39 Fibroadeno ma of right breast 1294480322 285509 D24.1 patient complained of lump around menstrual cycle. Patient educated most likely fibroadeno ma but will ge mammogram to rule out malignancy . Venereal d isease screening 232412020 Z11.3 Fibroadeno ma of breast 642505428 D24.9 Health Concerns Section Related Observation LastModified by Organization Detai ls LastModified Time None Recorded Concern Status LastModified by Organization Details LastModified Time None Recorded Advance Directives Directive N: Payers Encounter Date Sequence Insurance Name Policy Number Policy Sparks Covered Member ID Sparks Member ID Guarantor Name 01/04/2020 1 [facility] PRIOR TO 11/02/2020 (MEDICAID REPLACEMENT - HMO) Sara Donaby [id number] Sara Donaby 06/28/2020 1 [facility] PRIOR TO 11/02/2020 (MEDICAID REPLACEMENT - HMO) Sara Donaby [id number] Sara Donaby 08/25/2020 1 [facility] PRIOR TO 11/02/2020 (MEDICAID REPLACEMENT - HMO) Sara Donaby [id number] Sara Donaby 09/06/2020 1 [facility] PRIOR TO 11/02/2020 (MEDICAID REPLACEMENT - HMO) Sara Donaby [id number] Sara Donaby 02/12/2021 1 [facility] ON OR AFTER 11/02/20 (MEDICAID REPLACEMENT - HMO) Sara Donaby [id number] Sara Donaby Notes Date Note Type Note [...] person. ADRIEL Encinas NP Attn: Accounting, [address] [facility], [place], [address], [facility] 01/04/2020 12:01:03 06/28/2020 text/html 29yo F w ith h/o BV, candidiasis, HSV, GBS, DM presents via phone for vaginits. Ry Juan palacios [facility] 06/29/2020 07:26:44 06/28/2020 text/html Vaginal/Vulvar ProblemReported bypatient.Location:[facility] Context:sexually active Associated Symptoms:vaginal irritation; vaginal discharge, yellow color with odor. Ry palacios [facility] 06/29/2020 07:26:44 08/25/2020 text/html I have a knot o n my stomach Months Ms Lamb returns with a knot that has increased in size in the last few months. No redness, pain or any other symptoms. Andra Walters MD Attn: Accounting,[address] [facility], [place], [address], [facility] 08/25/2020 16:16:56 09/06/2020 text/html I had to do a f ollow up from the last time I was here Andra Walters MD Attn: Accounting, [address] [facility], [place], [address], [facility] 09/06/2020 12:31:50 02/12/2021 text/html Annual GYNReport [...] HPV typingNotes:Patient has not had COVID vaccine. Xander.Elijah. is a 30 yr old AAF, , who [facility] today [facility]12[facility] 13:09:55 OBGyn Episode Ob Episode Information Episode Created Date Number of Fetuses Patient Bloodtype Patient rh Status Prepregnancy Weight lbs Domestic Partner Domestic Partner Phone Father Name Commanding Officer Garage Status 02/11/20 15 1 A Negative CLOSED Fetus Data First Name Last Name Admitted to NICU Weight (g) Sex Living Outcome Pediatric Complications Fetus ID Race Codes Race Delivery Type Jenaro Bryant false 2749.90 15 F Full Term 23594 4-5 Black or Afric an Ameri can Problems Problem Notes Problem Name Start Date End Date Resolution Snomed Code Not e Vaginitis 79369611 Michael Calculation Initial Michael Date Initial Exam Date Initial Exam Provider Initial Ultrasound Date Last Menstrual Period Date Ultra Sound Weeks Gestation 08/25/2015 02/10/2015 [email or web address] 01/23/2015 11/18/2014 9 Eighteen To Twenty Week Michael Update Ultra Sound Date Fundal Height At Umbil Quickening Date Ultra Sound Latest Weeks Gestation Final Michael Confirmed By Final Michael Confirmed Date Final Michael Date Ultra Sound Latest Days Gestation 01/24/20 15 9 [email or web address] 02/10/2015 08/25/19 16 1 Pre- Flowsheet Flowsheet Date 02/10/2015 Ulloa Score Blood Edema Fundus Height Fundus Units Glucose Ketones Leukocytes Nitrite Labor Signs Protein Cervic Dilation Cervic Effacement Cervic Station 12 none neg Type Weight in lbs Pre/Post Dialysis Refused 182.745148131378 BP Diastolic BP Location Tested BP Systolic [...] Type Weight in lbs Pre/Post Dialysis Refused 182.358560582775 BP Diastolic BP Location Tested BP Systolic BP Type 74 118 Fetus Heart Rate Present Fetus Movement Comments transfer ob visit Flowsheet Date 02/20/2017 Ulloa Score Blood Edema Fundus Height Fundus Units Glucose Ketones Leukocytes Nitrite Labor Signs Protein Cervic Dilation Cervic Effacement Cervic Station Type Weight in lbs Pre/Post Dialysis Refused 182.760717826482 BP Diastolic BP Location Tested BP Systolic BP Type 78 120 sitting Fetus Heart Rate Present Fetus Movement Comments Menstrual History Last Menstrual Date Menses Monthly On Bcp Conception Prior Menses Frequency Hcg Plus Date Menarche Onset Age 0711/18/2014 Genetic Screening And Infection History Question Response Note Patient's Age Will Be 35 Yea rs Or Older At Estimated Date of Delivery false Thalassemia (Turkish, Turkish, Mediterranean, Or Background): MCV < 80 false Neural Tube Defect (Meningom yelocele, Spina Bifida, Or Anencephaly) false Congenital Heart Defect false Down Syndrome false Franki-Sachs (eg, Holiness, Cajun , Kosovan-Yemeni) false Porfirio Disease false Sickle Cell Disease Or Trait () false Hemophilia Or Other Blood Disorders false Muscular Dystrophy false Cystic Fibrosis false [place]'s Chorea false Mental Retardation/Autism false If Yes, [...] Comments 6 Sponta neous Local 38.5 false Pablo Kimberlee Melendez 08/18/2015 Discharge Information Feeding Method Contraceptive Method Maternal HG B and HCT Levels Breast Nexplanon Ob Episode Information Episode Created Date Number of Fetuses Patient Bloodtype Patient rh Status Prepregnancy Weight lbs Domestic Partner Domestic Partner Phone Father Name Commanding Officer Garage Status 02/11/20 15 1 CLOSED Fetus Data First Name Last Name Admitted to NICU Weight (g) Sex Living Outcome Pediatric Complications Fetus ID Race Codes Race Delivery Type 737.087 M Prematur e 13800 Primary Michael Calculation Initial Michael Date Initial [...] Domestic Partner Domestic Partner Phone Father Name Commanding Officer Garage Status 02/11/20 15 1 CLOSED Fetus Data First Name Last Name Admitted to NICU Weight (g) Sex Living Outcome Pediatric Complications Fetus ID Race Codes Race Delivery Type 2608.15 4 M Prematur e 26700 Vaginal Michael Calculation Initial Michael Date Initial [...] Domestic Partner Domestic Partner Phone Father Name Commanding Officer Garage Status 02/21/20 17 1 DELETED Michael Calculation [...]
--- OUTSIDE RECORDS SUMMARY | 2024-09-14 08:04 | XMS_ITS | Clinical Summary ---
Author Organization [facility] Address [address] [place] [address] Care Team Providers Care Marzipan Molder Name Role Phone Unavailable Primary Care Provider [...] 2020 COVID-19 Vaccine (2023-2 5 season) 2024 HPV Vaccines Aged Out No longer eligi ble based on patient's age to complete this topic Meningococcal B Vaccine Aged Out No l onger eligible based on patient's age to complete this topic Meningococcal Vaccine Aged Out No sonja darline eligible based on patient's age to complete this topic Pneumococcal Vaccine: Pediat rics (0 to 5 Years) and At-Risk Patients (6 to 49 Years) Aged Out No longer eligible b ased on patient's age to complete this topic RSV Immunizations Under 20 Months Aged Out No longer eligible based on patient's age to complete this topic
[2024-09-14 08:09] VITALS: BP 158/118; PULSE 82; RESP 16; TEMP 36.4; O2SAT 100
--- NOTE | 2024-09-14 09:12 | ED.BACK ---
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 Patient denies any fever, chills, nausea, vomiting, abdominal pain, urinary symptoms, vaginal bleeding or discharge. Patient is healthy otherwise. Related Data Home Medications ?Medication ?Instructions ?Recorded ?Confirmed ?Last Taken ?Type mjukpzeakekl-uniiscka-misj tablet PO 12/10/23 04/14/24 Unknown History fumarate 18 mg-folic acid 400 mcg tablet (One-A-Day Women's Complete) Allergies Allergy/AdvReac Type Severity Reaction Status Date / Time metronidazole AdvReac Intermediate Nausea Verified 09/14/24 08:12 oxycodone AdvReac Intermediate Nausea Verified 09/14/24 08:12 Review of Systems Review of Systems: All systems reviewed & are unremarkable except as noted in HPI and below PMFSH Past Medical History Medical History Vitamin D deficiency Endometrioma (~06/2023) Prediabetes Surgical History Surgical History History of vaginal delivery 04/2009, 08/2015 History of wisdom tooth extraction (~08/2020) Hx of excision of mass (~07/2023) Excision 6 cm intramuscular endometrioma 07/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 Mother Alcoholism Hypertension Heart disease Thyroid disease Grandparent Hypertension Cerebrovascular accident Lung cancer Social History Social History Smoking status: Never smoker Alcohol intake: current Alcohol use details: socially Substance use: never Substance use type: does not use Do You Feel Safe in your Home?: Yes Lack of Transportation: No Lack of Food: Never True Current Housing: I Have Housing Concerned About Future Housing: No Difficulty Paying Gas/Electric Bills: No Difficulty Paying for Meds: No Currently Unemployed: No Education: Associate Degree Difficulty w/ Childcare or Family Care: No Living arrangements: alone Gender identity (if verbalized by the patient): Female Spiritual care concerns: No Exam Narrative: General appearance: Well-developed, well-nourished Skin: Normal color Head: Normocephalic, nontraumatic Eyes: Clear conjunctiva ENT: Oropharynx normal, ears normal, nose normal Neck: Supple, nontender Chest and respiratory: Airway patent, no respiratory distress, no accessory muscle use Heart: Regular rate/rhythm Abdomen: Soft, nontender, no organomegaly, quiet bowel sounds Vascular: Normal peripheral pulses, normal capillary refill. Musculoskeletal: Severe tenderness left lower back with light palpation, no bruises, no swelling, no rash, limited range of motion of the left hip area because of pain Neurologic: Alert and oriented ?3, HEALTH CARE MARKETING MANAGER is normal as tested, no gross motor deficit Course Vital Signs Vital signs: Vital Signs Temperature 36.4 C 09/14/24 08:09 Pulse Rate 82 09/14/24 08:09 Respiratory Rate 16 09/14/24 08:09 Blood Pressure 158/118 H 09/14/24 08:09 Pulse Oximetry 100 09/14/24 08:09 Oxygen Delivery Room Air 09/14/24 08:09 Temperature 36.4 C 09/14/24 08:09 Pulse Rate 82 09/14/24 08:09 Respiratory Rate 16 09/14/24 08:09 Blood Pressure 158/118 H 09/14/24 08:09 Pulse Oximetry 100 09/14/24 08:09 Oxygen Delivery Room Air 09/14/24 08:09 MDM - Back Pain/Injury MDM Narrative Medical decision making narrative: Differential diagnosis musculoskeletal pain X-ray lumbar spine showed no acute osseous abnormality Urinalysis showed no acute abnormalities. Diagnosis lower back sprain/strain, Discharged on naproxen and Flexeril. Lab Data Labs: Lab Results 09/14/24 09/14/24 Range/Units 09:41 09:42 Urine Color Yellow (Yellow) Urine Appearance Clear (Clear) Urine pH 6.0 (5.0-9.0) Ur Specific [place] 1.011 (1.001-1.035) Urine Protein 1+ H (Negative) mg/dL Urine Glucose (UA) Negative (Negative) mg/dL Urine Ketones Negative (Negative) mg/dL Ur Blood (Man) Trace (Negative) Urine Nitrate Negative (Negative) Urine Bilirubin Negative (Negative) Urine Urobilinogen 0.2 (<2.0) mg/dL Leukocyte Esterase Rfl Trace H (Negative) LARRY/UL Urine RBC 0-2 (0-2) /hpf Urine WBC 0-5 (0-3) /hpf Ur Squamous Epith Cells Occasional (Few) /hpf Urine Bacteria Rare /hpf Urine Casts 0-2 POC Urine HCG, Qual Negative (Negative) Discharge Plan Discharge Clinical Impression: Lower back pain Patient Disposition: Home Condition: Stable Instructions: Acute Low Back Pain (ED) Additional Instructions: RETURN IF SYMPTOMS ARE WORSENING , CALL YOUR FAMILY PHYSICIAN FOR APPOINTMENT, TAKE TYLENOL NEEDED FOR ACHES AND PAIN, CONTINUE HOME MEDICATIONS. MASSAGE, HEATING PAD, EXERCISE Patient Language: Namibian Prescriptions: New cyclobenzaprine 10 mg tablet 10 mg PO TID PRN (Reason: muscle spasm) Qty: 20 0RF naproxen [Naprosyn] 500 mg tablet 500 mg PO BID PRN (Reason: pain) Qty: 14 0RF No Action One-A-Day Women's Complete 18 mg iron- 400 mcg tablet PO cholecalciferol (vitamin D3) 1,250 mcg (50,000 unit) tablet 1,250 mcg PO WEEKLY Qty: 12 1RF Follow-up/Referrals: Amber Hagan MD [Primary Care Provider] -
--- OUTSIDE RECORDS SUMMARY | 2024-09-14 09:15 | XMS_ITS | Clinical Summary ---
Author Organization [facility] [employer] Address [address] [place] [address] Care Team Providers Care Leaflet Distributor Name Role Phone Unavailable Primary Care Provider Unavailabl e Source Comments [facility] [employer],non-owned Affiliates and Associated Physician Practices is amultiple site organization consisting of ambulatory clinics and hospital sitesin [place], [place], [place] and [place]. This disclosure is being madepursuant to the Care Everywhere program and may not contain all information available regarding this patient. Last updated 18.[facility] [employer] Allergies No known active allergies Medications * Be aware that medications may not be up to date on this document. Alwaysverify current medications with the patient. Qhz-Tdt-PP-Fish Oil ([facility]) Take 2 Tabs [...] to search. 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 [place] [address] [address] [employer] Member Subscriber Plan / Payer (Ef fective for All Dates) Name:Sara Lamb Relation to Subscriber:Self Name:Sara Lamb Payer ID:[id number] (NAIC) Type:PPO Address: [place] [phone] SELF PAY NO INSURANCE Member Subscriber Plan / Payer (Ef fective for All Dates) Name:Sara Lamb Member ID:Not on file Relation to Subscriber:Not on file Name:SARA LAMB Subscriber ID:Not on file Address: [address] [place] [address] Payer ID:Not on file Group ID:Not on file Type:Self Pay Address: [place], [place] [facility] SELF PAY NO INSURANCE Member Subscriber Plan / Payer (Ef fective for All Dates) Name:FerminSara barnes Member ID:Not on file Relation to Subscriber:Not on file Name:FERMINFernieSARA Subscriber ID:Not on file Address: [address] [place] [address] Payer ID:Not on file Group ID:Not on file Type:Self Pay Address: [place], [place] Advance Directives * Full Code (Latest Code Status on File) Date Activated Date Inactivated Comments 08/16/2015 10:19 PM 08/18/2015 4:47 PM
--- OUTSIDE RECORDS SUMMARY | 2024-09-14 09:15 | XMS_ITS | Clinical Summary ---
Author Organization [facility] Address [address] [place] [address] Care Team Providers Care Thread Inspector Name Role Phone Unavailable Primary Care Provider [...]
[2024-09-14 09:43] LABS: BEDSIDEPREGUCG Negative (Negative)
[2024-09-14 09:54] LABS: Add Urine Microscopic? YES; Appearance Urine Clear (Clear); Bacteria Urine Rare /hpf; Bilirubin Urine Negative (Negative); Blood Urine Trace (Negative); Color Urine Yellow (Yellow); Glucose Urine UA Negative (Negative); Ketones Urine Negative (Negative); Leukocyte Esterase Ur Trace LEU/UL (Negative); Nitrate Urine Negative (Negative); Non Pathogenic Casts 0-2; Protein Urine 1+ mg/dL (Negative); RBC Urine 0-2 /hpf (0-2); Specific Grav Ur 1.011 (1.001-1.035); Squamous Epithelial Cell Urine Occasional /hpf (Few); Urobilinogen Urine 0.2 mg/dL (<2.0); WBC Urine 0-5 /hpf (0-3)
--- NOTE | 2024-09-14 11:33 | PC.NURSE ---
pt hit the call button for an update. this RN went into the room to let pt know we are waiting on the EDP to give the pt the results of her scan since this RN cannot give results out. pt was upset and started raising her voice saying she works here and deserves to be treated better. this RN educated the pt that she is being treated just like every other pt. pt is upset she was not given a blanket, this RN asked if she had her call light, which pt did, due to this RN being busy. pt said this is ridiculous and shooed this RN away saying shes done, this RN left the room due to pt needing to take a minute to calm down. EDP aware
[2024-09-14 11:47] VITALS: BP 149/107; PULSE 86; RESP 16; O2SAT 98
== END 2024-09-14 11:48 | disposition home or self-care (01) ==
PROVIDERS: Emergency Provider Emergency Medicine; PCP Family Medicine
DX: M54.50 Low back pain, unspecified (principal)
CPT/HCPCS: 72100; 81001; 81025; 99283

== ENCOUNTER 2024-12-01 07:28 | Outpatient (CLI) | payer OTHER, SELFPAY ==
--- OUTSIDE RECORDS SUMMARY | 2024-12-01 07:32 | XMS_ITS | Clinical Summary ---
Author Organization [facility] Address [address] [place] [address] Care Team Providers Care Clinic Physician Director Name Role Phone Unavailable Primary Care Provider [...] of 3 - 19+ 3-dose series) 2009 HPV Vaccines (1 - 3-dose SCD M series) 2017 Cervical Cancer Screening Pa p with HPV Testing (Age 30 to 64) Every 5 Years 2020 Cervical Cancer Screening with HPV 2020 COVID-19 Vaccine ( - 2023-2 5 season) 2024 Meningococcal B Vaccine Aged Out No l [...]
[2024-12-01 08:05] LABS: Hematocrit 37.1 % (37.0-47.0); Hemoglobin 12.0 g/dL (12.0-15.0); Immature Granulocyte Percent A 0.3 % (0-0.5); Lymphocytes Absolute Auto 3.25 K/mm3 (0.9-3.2); Mean Corpuscular HGB Conc 32.3 g/dl (32-36); Mean Corpuscular Hemoglobin 29.1 pg (26-34); Mean Corpuscular Volume 90.0 fl (80-100); Nucleated Red Blood Cells Absolute Auto 0.000 K/mm3 (0.0-0.012); Nucleated Red Blood Cells Perc 0.0 % (0.0-0.2); Platelet Count Result 284 k/mm3 (150-375); Red Blood Count 4.12 M/mm3 (4.2-5.4); White Blood Count 9.4 K/mm3 (4.5-10.0)
[2024-12-01 10:04] LABS: Thyroid Stimulating Hormone Reflex 1.010 uIU/mL (0.465-4.68)
[2024-12-01 11:03] LABS: Hemoglobin A1C 5.6 % (<5.7)
[2024-12-01 11:27] LABS: Alanine Aminotransferase 8 U/L (6-35); Albumin Level 4.0 g/dL (3.5-5.1); Alkaline Phosphatase 83 U/L (38-126); Anion Gap 8 mmol/L (4-12); Aspartate Amino Transferase 24 U/L (14-36); Bilirubin,Total 0.6 mg/dL (0.2-1.3); Blood Urea Nitrogen 11 mg/dL (7-17); Calcium 9.6 mg/dL (8.4-10.2); Carbon Dioxide 26 mmol/L (22-30); Chloride 103 mmol/L (98-107); Cholesterol 207 mg/dL (0-200); Estimated Glomerular Filt Rate > 60; Glucose 93 mg/dL (65-110); HDL Direct 52 mg/dL; Potassium 4.4 mmol/L (3.4-5.0); Sodium 137 mmol/L (137-145); Total Protein 8.6 g/dL (6.3-8.2); Triglycerides 115 mg/dL (<150)
[2024-12-01 12:21] LABS: Vitamin B12 374.0 pg/mL (239-931)
== END 2024-12-01 07:29 | disposition home or self-care (01) ==
LOC: ANHLAB 07:30
PROVIDERS: PCP Family Medicine; Visit Provider Family Medicine
DX: R73.03 Prediabetes (principal); Z00.00 Encounter for general adult medical examination without abnormal findings; E55.9 Vitamin D deficiency, unspecified; E78.5 Hyperlipidemia, unspecified; Z13.29 Encounter for screening for other suspected endocrine disorder; E53.8 Deficiency of other specified B group vitamins
CPT/HCPCS: 36415; 80053; 80061; 82306; 82607; 83036; 84443; 85025

== ENCOUNTER 2025-01-25 09:46 | Outpatient (CLI) | payer OTHER, SELFPAY ==
--- NOTE | ~2025-01-25 | US_ITS ---
US thyroid INDICATION: Nontoxic goiter TECHNIQUE: Real-time sonographic images of the thyroid gland were obtained. COMPARISON: No prior studies for comparison. FINDINGS: The right thyroid lobe measures 5.7 x 1.7 x 1.6 cm. The left thyroid lobe measures 5.7 x 1.5 x 1.6 cm. There is normal echotexture and echogenicity throughout the thyroid gland. In the lateral aspect of the right thyroid lobe there is a solid hypoechoic wider than tall smoothly marginated 4 mm mass, TR 4. No other masses are identified. Normal vascular flow is present. IMPRESSION: 1. Right thyroid mass measuring 4 mm, TR 4. No masses are identified which meet sonographic criteria for biopsy. Reviewed, dictated and finalized at location O. IMPRESSION: 1. Right thyroid mass measuring 4 mm, TR 4. No masses are identified which hilda t sonographic criteria for biopsy.
== END 2025-01-25 09:47 | disposition home or self-care (01) ==
LOC: MICIMG 09:47
PROVIDERS: PCP Family Medicine; Visit Provider Obstetrics & Gynecology
DX: E07.9 Disorder of thyroid, unspecified (principal)
CPT/HCPCS: 76536

== ENCOUNTER 2025-02-07 08:06 | Emergency (ER) | payer OTHER, SELFPAY ==
--- NOTE | ~2025-02-07 | XR_ITS ---
EXAMINATION: XR foot LT min 3V, XR ankle LT min 3V DATE: 02/07/2025 09:21 INDICATION: TECHNIQUE: 1. Anteroposterior, mortise, additional oblique and lateral view of the left ankle were obtained. 2. Dorsoplantar, two oblique and lateral views of the left foot were obtained. COMPARISON: None. FINDINGS: Alignment of the foot and ankle is normal. No fracture or osteochondral lesion. Joint spaces are well maintained. No ankle joint effusion. The soft tissues are unremarkable. IMPRESSION: 1. Negative left foot and ankle radiographs. Reviewed, dictated and finalized at location A. IMPRESSION: 1. Negative left foot and ankle radiographs.
--- NOTE | ~2025-02-07 | XR_ITS ---
EXAMINATION: XR ankle RT min 3V, XR foot RT min 3V DATE: 02/07/2025 09:21 INDICATION: Right foot and ankle injury post fall TECHNIQUE: 1. Anteroposterior, mortise, additional oblique and lateral view of the right ankle were obtained. 2. Dorsoplantar, two oblique and lateral views of the right foot were obtained. COMPARISON: None. FINDINGS: Alignment of the foot and ankle is normal. There is a tiny linear calcific density projecting dorsal lateral to the cuboid with overlying soft tissue swelling suggesting a mildly distracted tiny flake-like avulsion fracture fragment potentially arising from the footplate of the left kidney calcaneocubo id ligament. No other lesions suspicious for fracture identified. Joint spaces are well maintained. No ankle joint effusion. IMPRESSION: 1. Possible tiny flake-like avulsion fracture fragment dorsolateral to the cuboid potentially involving the footplate of the calcaneocuboid component of the bifurcate ligament. Reviewed, dictated and finalized at location A. IMPRESSION: 1. Possible tiny flake-like avulsion fracture fragment dorsolateral to the cubo id potentially involving the footplate of the calcaneocuboid component of the b ifurcate ligament.
[2025-02-07 08:12] VITALS: BP 151/93; PULSE 87; RESP 17; TEMP 36.6; O2SAT 100
--- OUTSIDE RECORDS SUMMARY | 2025-02-07 08:18 | XMS_ITS | Clinical Summary ---
Author Organization [facility] Address [address] [place] [address] Care Team Providers Care Ict Support Engineer Name Role Phone Unavailable Primary Care Provider Unavailabl e Source Comments [facility],non-owned Affiliates and Associated Physician Practices is amultiple site organization consisting of ambulatory clinics and hospital sitesin [place], [place], [place] and [place]. This disclosure is being madepursuant to the Care Everywhere program and may not contain all information available regarding this patient. Last updated 18.[facility] Allergies No known active allergies Medications * Be aware that medications may not be up to date on this document. Alwaysverify current medications with the patient. Swk-Orf-BW-Fish Oil ([facility] PO) Take 2 Tabs [...] to search. 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 Gender Identity Female 09/12/2021 10:45 PM CDT [...] Health Maintenance Due Date Last Done Comments HIV SCREENING 2005 HEPATITIS C SCREENING 11/20/2008 HEPATITIS B VACCINE (1 of 3 - 19+ 3-dose series) 2009 PAP SMEAR 11/26/2011 HPV VACCINE (1 - 3-dose SCDM series) 2017 DEPRESSION SCREENING 05/05/2024 COVID-19 VACCINE (1 - 2023-2 5 season) 2025 INFLUENZA VACCINE (#1) 2025 7, 03/03/2015 DTAP/TDAP/TD VACCINES (2 - T d [...] patient's age to complete this topic Insurance [facility] SELF PAY NO INSURANCE Member Subscriber Plan / Payer (Ef fective for All Dates) Name:Sara Lamb Member ID:Not on file Relation to Subscriber:Not on file Name:SARA LAMB Subscriber ID:Not on file Address: [address] [place] [address] Payer ID:Not on file Group ID:Not on file Type:Self Pay Address: [facility] SELF PAY NO INSURANCE Member Subscriber Plan / Payer (Ef fective for All Dates) Name:Sara Lamb Member ID:Not on file Relation to Subscriber:Not on file Name:SARA LAMB Subscriber ID:Not on file Address: [address] [place] [address] Payer ID:Not on file Group ID:Not on file Type:Self Pay Address: [facility] Member Subscriber Plan / Payer (Ef fective 2024-Present) Name:Alexandremolly Sara Relation to Subscriber:Self Name:Sara Lamb Payer ID:[id number] (NAIC) Type:PPO Address: [place] [phone] Advance Directives * Full Code (Latest Code Status on File) Date Activated Date Inactivated Comments 08/16/2015 10:19 PM 08/18/2015 4:47 PM
--- OUTSIDE RECORDS SUMMARY | 2025-02-07 08:18 | XMS_ITS | Clinical Summary ---
Author Organization [facility] Address [address] [place] [address] Care Team Providers Care Diet Kitchen Cook Name Role Phone Unavailable Primary Care Provider [...] COVID-19 Vaccine ( - 2023-2 5 season) 2025 Meningococcal B Vaccine Aged Out No l [...]
[2025-02-07 08:36] VITALS: BP 151/93; PULSE 87; RESP 16; TEMP 37.1; O2SAT 100
--- NOTE | 2025-02-07 09:00 | ED_ITS ---
HPI - Fall General Chief Complaint: Fall Stated Complaint: fell off of porch, bilateral ankle pain Time Seen by Provider: 02/07/25 08:41 History of Present Illness HPI Narrative: 34-year-old female with no medical history on file presents to ER complaining of bilateral ankle pain. Patient states that she ?fell off her porch? this morning, willing both of her ankles. Patient states she was unable to bear weight or ambulate following the incident. No other injuries Related Data Home Medications ?Medication ?Instructions ?Recorded ?Confirmed ?Last Taken ?Type lndqrcerweyu-rihpajuk-rtwo 1 tablet PO DAILY 09/22/24 01/20/25 Unknown History fumarate 18 mg-folic acid 400 mcg tablet (One-A-Day Women's Complete) Allergies Allergy/AdvReac Type Severity Reaction Status Date / Time metronidazole AdvReac Intermediate Nausea Verified 01/20/25 12:59 oxycodone AdvReac Intermediate Nausea Verified 01/20/25 12:59 Review of Systems Review of Systems: All systems reviewed & are unremarkable except as noted in HPI and below PMFSH Past Medical History Medical History Essential (primary) hypertension Vitamin D deficiency Endometrioma (~06/2023) Prediabetes Surgical History Surgical History History of vaginal delivery 04/2009, 08/2015 History of wisdom tooth extraction (~08/2020) Hx of excision of mass (~07/2023) Excision 6 cm intramuscular endometrioma 07/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 Mother Alcoholism Hypertension Heart disease Thyroid disease Cerebrovascular accident Grandparent Hypertension Cerebrovascular accident Lung cancer Social History Social History Smoking status: Never smoker Alcohol intake: current Alcohol use details: socially Substance use: never Substance use type: does not use Do You Feel Safe in your Home?: Yes Lack of Transportation: No Lack of Food: Never True Current Housing: I Have Housing Concerned About Future Housing: No Difficulty Paying Gas/Electric Bills: No Difficulty Paying for Meds: No Currently Unemployed: No Education: Associate Degree Difficulty w/ Childcare or Family Care: No Living arrangements: alone Gender identity (if verbalized by the patient): Female Spiritual care concerns: No Exam Const: General: healthy appearing and alert Nutritional Appearance: well nourished and obese Orientation/consciousness: patient oriented x3 Limitations: no limitations HENMT: Head: normal to inspection Eyes: Conjunctivae: conjunctivae normal Neck: Neck: normal visual inspection Chest: Chest palpation & inspection: normal inspection of the chest Resp: Effort & Inspection: normal respiratory effort Cardio: Rate: regular rate Rhythm: regular rhythm Skin: General skin exam: normal color Neuro: General: patient oriented x3, moves all extremities and CN's II-XI intact bilaterally Extrem: Other: Left foot and ankle: No TTP, no STS, full range of motion. Neurovascular is intact distally Right foot and ankle: TTP with mild STS over the navicular bone extending into the lateral malleolus. Full range of motion. No obvious bony abnormality. Neurovascular is intact distally. Course Vital Signs Vital signs: Vital Signs Temperature 36.6 C 02/07/25 08:12 Pulse Rate 87 02/07/25 08:12 Respiratory Rate 17 02/07/25 08:12 Blood Pressure 151/93 H 02/07/25 08:12 Pulse Oximetry 100 02/07/25 08:12 Oxygen Delivery Room Air 02/07/25 08:12 Temperature 37.1 C 02/07/25 08:36 Pulse Rate 87 02/07/25 08:36 Respiratory Rate 16 02/07/25 08:36 Blood Pressure 151/93 H 02/07/25 08:36 Pulse Oximetry 100 02/07/25 08:36 Oxygen Delivery Room Air 02/07/25 08:36 MDM - Fall MDM Narrative Medical decision making narrative: In summary: 34-year-old female present to the ER complaining of bilateral ankle and foot pain following a mechanical fall this morning. Imaging shows a small avulsion fracture of the cuboid bone to the right foot. Remaining imaging does not demonstrated no acute bony abnormalities. Patient was fitted into and worsened boot and provided crutches. Plan is to refer to Orthopedics and Pain Management. Discharged home in stable condition. Discharge Plan Discharge Clinical Impression: Foot fracture, right, Left ankle sprain Patient Disposition: Home Condition: Stable Instructions: Antibiotic Form, Ankle Sprain (DC), Foot Fracture in Adults (ED) Patient Language: Vincentian Prescriptions: No Action cholecalciferol (vitamin D3) 50 mcg (2,000 unit) tablet 50 mcg PO DAILY Qty: 90 2RF One-A-Day Women's Complete 18 mg iron- 400 mcg tablet 1 tablet PO DAILY Follow-up/Referrals: Amber Hagan MD [Primary Care Provider, Family Practice] Cameron Weber MD [Physician, Orthopedics] Time of Disposition: 09:38
[2025-02-07] MEDS: IBUPROFEN 400 MG TABLET 800 MG PO (09:29)
--- OUTSIDE RECORDS SUMMARY | 2025-02-07 10:11 | XMS_ITS | Clinical Summary ---
Author Organization [facility] Address [address] [place] [address] Care Team Providers Care Coding File Clerk Name Role Phone Unavailable Primary Care Provider [...]
--- OUTSIDE RECORDS SUMMARY | 2025-02-07 10:11 | XMS_ITS | Clinical Summary ---
Author Organization [facility] Address [address] [place] [address] Care Team Providers Care Jacquard Loom Weaver Name Role Phone Unavailable Primary Care Provider Unavailabl e Source Comments [facility],non-owned Affiliates and Associated Physician Practices is amultiple site organization consisting of ambulatory clinics and hospital sitesin [place], [place], [place] and [place]. This disclosure is being madepursuant to the Care Everywhere program and may not contain all information available regarding this patient. Last updated 18.[facility] Allergies No known active allergies Medications * Be aware that medications may not be up to date on this document. Alwaysverify current medications with the patient. Fuf-Yks-GK-Fish Oil ([facility] PO) Take 2 Tabs [...] to search. 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 Gender Identity Female 09/12/2021 10:45 PM CDT [...] patient's age to complete this topic Insurance [facility] SELF PAY NO INSURANCE Member Subscriber Plan / Payer (Ef fective for All Dates) Name:Sara Lamb Member ID:Not on file Relation to Subscriber:Not on file Name:SARA LAMB Subscriber ID:Not on file Address: [address] [place] [address] Payer ID:Not on file Group ID:Not on file Type:Self Pay Address: [facility] SELF PAY NO INSURANCE Member Subscriber Plan / Payer (Ef fective for All Dates) Name:Sara Lamb Member ID:Not on file Relation to Subscriber:Not on file Name:SARA LAMB Subscriber ID:Not on file Address: [address] [place] [address] Payer ID:Not on file Group ID:Not on file Type:Self Pay Address: [facility] Member Subscriber Plan / Payer (Ef fective 2024-Present) Name:Alexandremolly Sara Relation to Subscriber:Self Name:Sara Lamb Payer ID:[id number] (NAIC) Type:PPO Address: [place] [phone] Advance Directives * Full Code (Latest Code Status on File) Date Activated Date Inactivated Comments 08/16/2015 10:19 PM 08/18/2015 4:47 PM
== END 2025-02-07 10:26 | disposition home or self-care (01) ==
PROVIDERS: Emergency Provider Nurse Practitioner Family; PCP Family Medicine
DX: S92.211A Displaced fracture of cuboid bone of right foot, initial encounter for closed fracture (principal); S93.402A Sprain of unspecified ligament of left ankle, initial encounter; I10 Essential (primary) hypertension; E55.9 Vitamin D deficiency, unspecified; R73.03 Prediabetes; W13.8XXA Fall from, out of or through other building or structure, initial encounter
CPT/HCPCS: 73610; 73630; 99284; A9270